=== PATIENT | male | born 1935 | race Caucasian/White ===

== ENCOUNTER 2017-12-02 14:52 | Inpatient (IN) | payer MEDICARE, BC ==
[2017-12-02] MEDS ORDERED: Sodium Chloride 0.9% 500 ML IV ONE (15:37)
[2017-12-02] MEDS: Sodium Chloride 0.9% 10 ML Syringe FLUSH PRN (15:49)
--- NOTE | 2017-12-02 16:09 | EDM.PDOC ---
ED HPI GENERAL MEDICAL PROBLEM - General Chief Complaint: Respiratory Problem Stated Complaint: SOB Time Seen by Provider: 12/02/17 15:04 Source of Information: Reports: Patient, Family, RN Notes Reviewed - History of Present Illness INITIAL COMMENTS - FREE TEXT/NARRATIVE: 82-year-old gentleman first became ill with abdominal discomfort, vomiting and diarrhea 2 or 3 days ago. Especially quite ill 2 days ago with repetitive vomiting and diarrhea. He did start to get somewhat better and felt "a lot better this past morning. States he was able to eat cereal without difficulty. Then around noon today, about 4 hours ago he started having shaking chills, increasing cough, nasal and sinus congestion, nasal rhinitis, scratchy throat and "feels sick". Feels like he is weak with no energy to stand or walk. - Related Data Allergies Allergy/AdvReac Type Severity Reaction Status Date / Time amoxicillin [From Augmentin] Allergy Stomach Verified 12/02/17 15:08 Upset cefuroxime Allergy Stomach Verified 12/02/17 15:08 Upset clavulanic acid Allergy Stomach Verified 12/02/17 15:08 [From Augmentin] Upset hydrochlorothiazide Allergy Stomach Verified 12/02/17 15:08 [From Hyzaar] Upset losartan Allergy Stomach Verified 12/02/17 15:08 Upset metronidazole Allergy Stomach Verified 12/02/17 15:08 Upset morphine Allergy Stomach Verified 12/02/17 15:08 Upset tiotropium Allergy Stomach Verified 12/02/17 15:08 [From Spiriva with Upset HandiHaler] tramadol Allergy Stomach Verified 12/02/17 15:08 Upset Home Meds: Home Meds Albuterol [Proair HFA] 1 puff IH Q4H PRN 12/02/17 [History] Aspirin [Halfprin] 162 mg PO DAILY 12/02/17 [History] Budesonide [Pulmicort] 0.5 mg IH DAILY 12/02/17 [History] Diltiazem HCl [Taztia Xt] 360 mg PO DAILY 12/02/17 [History] Hydrochlorothiazide 25 mg PO DAILY 12/02/17 [History] Ipratropium [Atrovent HFA Inh] 1 puff INH Q8H 12/02/17 [History] LORazepam 0.5 mg PO TID PRN 12/02/17 [History] Lisinopril 20 mg PO DAILY 12/02/17 [History] Metoprolol Succinate 50 mg PO DAILY 12/02/17 [History] Multivitamin [Multivitamins] 1 each PO DAILY 12/02/17 [History] Prednisone [IJD: Prednisone] 5 mg PO ASDIRECTED 12/02/17 [History] Tamsulosin [Tamsulosin 24 Hr] 0.4 mg PO DAILY 12/02/17 [History] Past Medical History Cardiovascular History: Reports: Hypertension, PVD Respiratory History: Reports: COPD, Pneumonia, Recurrent 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, Other (See Below) Other Oncologic History: lip - Past Surgical History HEENT Surgical History: Reports: Other (See Below) Other HEENT Surgeries/Procedures: sinuses removed Cardiovascular Surgical History: Reports: None, Other (See Below) Other Cardiovascular Surgeries/Procedures: abdominal anuerysm stents GI Surgical History: Reports: Appendectomy, Cholecystectomy, Colonoscopy, Hernia , Abdominal Oncologic Surgical History: Reports: Other (See Below) Other Oncologic Surgeries/Procedures: left lung tumor removal ED ROS GENERAL - Review of Systems Review Of Systems: See Below Constitutional: Reports: Fever (Possible), Chills HEENT: Reports: Rhinitis, Throat Pain Respiratory: Reports: Shortness of Breath, Cough, Sputum (Scant) Cardiovascular: Denies: Chest Pain GI/Abdominal: Reports: Diarrhea (2 days ago 2 days ago), Vomiting. Denies: Abdominal Pain Musculoskeletal: Reports: Other (Generalized achiness) Skin: Denies: Rash Neurological: Reports: Dizziness, Weakness. Denies: Headache ED EXAM, GENERAL - Physical Exam Exam: See Below General Appearance: Alert, Moderate Distress Eye Exam: Bilateral Eye: PERRL Nose: Clear Rhinorrhea Throat/Mouth: Normal Inspection, Normal Oropharynx Head: No: Facial Swelling Neck: Supple, Full Range of Motion, Other (No JVD) Respiratory/Chest: Respiratory Distress. No: Rales, Rhonchi (Moderate tachypnea , respiratory rate 25), Wheezing Cardiovascular: Regular Rate, Rhythm GI/Abdominal: Soft, Non-Tender Back Exam: No: CVA Tenderness (L), CVA Tenderness (R) Extremities: Normal Inspection, Normal Range of Motion. No: Pedal Edema, Leg Pain, Increased Warmth, Redness Neurological: Alert, Oriented, No Motor/Sensory Deficits Skin Exam: Warm, Dry, Normal Color Course - Vital Signs Last Recorded V/S: Last Vital Signs Temp 101.1 F H 12/02/17 16:04 Pulse 96 12/02/17 15:01 Resp 25 H 12/02/17 15:01 BP 186/98 H 12/02/17 15:01 Pulse Ox 93 L 12/02/17 15:01 - Orders/Labs/Meds Orders: Active Orders 24 hr Category Date Time Status EKG 12 Lead [EKG Documentation Completion] [RC] STAT Care 12/02/17 15:36 Active Oxygen Therapy [RC] ASDIRECTED Care 12/02/17 15:36 Active Peripheral IV Care [RC] . DIRECTED Care 12/02/17 15:37 Active Chest 1V Frontal [CR] Stat Exams 12/02/17 15:36 Taken CULTURE BLOOD [BC] Stat Lab 12/02/17 15:57 Received Levofloxacin/Dextrose 5%-Water [Levaquin in D5W 750 MG/ Med 12/02/17 17:03 Active 150 ML] 750 mg Premix Bag 1 bag IV ONETIME Sodium Chloride 0.9% [Saline Flush] Med 12/02/17 15:35 Active 10 ml FLUSH ASDIRECTED PRN Peripheral IV Insertion Adult [OM.PC] Stat Oth 12/02/17 15:36 Ordered Medication Orders Levofloxacin/Dextrose 750 mg/ (Premix) 150 mls @ 100 mls/hr IV ONETIME ONE Stop: 12/02/17 18:32 Sodium Chloride (Saline Flush) 10 ml FLUSH ASDIRECTED PRN PRN Reason: Keep Vein Open Last Admin: 12/02/17 15:49 Dose: 10 ml Labs: Laboratory Tests 12/02/17 12/02/17 12/02/17 Range/Units 15:10 15:10 15:10 WBC 10.75 H (4.23-9.07) K/mm3 RBC 5.23 (4.63-6.08) M/mm3 Hgb 15.7 (13.7-17.5) gm/L Hct 46.4 (40.1-51.0) % MCV 88.7 (79.0-92.2) fl MCH 30.0 (25.7-32.2) pg MCHC 33.8 (32.2-35.5) g/dl RDW Std Deviation 42.9 (35.1-43.9) fL Plt Count 226 (163-337) K/mm3 MPV 11.2 (9.4-12.3) fl Neutrophils % (Manual) 82 H (40-60) % Band Neutrophils % 1 (0-10) % Lymphocytes % (Manual) 16 L (20-40) % Atypical Lymphs % 0 % Monocytes % (Manual) 1 L (2-10) % Eosinophils % (Manual) 0 L (0.8-7.0) % Basophils % (Manual) 0 L (0.2-1.2) Platelet Estimate Adequate RBC Morph Comment Normal D-Dimer, Quantitative 1.64 H (0.19-0.59) mg/L Sodium 139 (136-145) mEq/L Potassium 3.4 L (3.5-5.1) mEq/L Chloride 99 (98-107) mEq/L Carbon Dioxide 30 (21-32) mEq/L Anion Gap 13.4 (5-15) BUN 19 H (7-18) mg/dL Creatinine 1.3 (0.7-1.3) mg/dL Est Cr Clr Drug Dosing 41.43 mL/min Estimated GFR (MDRD) 53 (>60) mL/min BUN/Creatinine Ratio 14.6 (14-18) Glucose 196 H (83-115) mg/dL Lactic Acid (0.4-2.0) mmol/L Calcium 8.8 (8.5-10.1) mg/dL Total Bilirubin 1.3 H (0.2-1.0) mg/dL AST 30 (15-37) U/L ALT 47 (16-63) U/L Alkaline Phosphatase 51 (46-116) U/L C-Reactive Protein 2.5 H* (<1.0) mg/dL Total Protein 7.6 (6.4-8.2) g/dl Albumin 3.8 (3.4-5.0) g/dl Globulin 3.8 gm/dL Albumin/Globulin Ratio 1.0 (1-2) 12/02/17 Range/Units 15:57 WBC (4.23-9.07) K/mm3 RBC (4.63-6.08) M/mm3 Hgb (13.7-17.5) gm/L Hct (40.1-51.0) % MCV (79.0-92.2) fl MCH (25.7-32.2) pg MCHC (32.2-35.5) g/dl RDW Std Deviation (35.1-43.9) fL Plt Count (163-337) K/mm3 MPV (9.4-12.3) fl Neutrophils % (Manual) (40-60) % Band Neutrophils % (0-10) % Lymphocytes % (Manual) (20-40) % Atypical Lymphs % % Monocytes % (Manual) (2-10) % Eosinophils % (Manual) (0.8-7.0) % Basophils % (Manual) (0.2-1.2) Platelet Estimate RBC Morph Comment D-Dimer, Quantitative (0.19-0.59) mg/L Sodium (136-145) mEq/L Potassium (3.5-5.1) mEq/L Chloride (98-107) mEq/L Carbon Dioxide (21-32) mEq/L Anion Gap (5-15) BUN (7-18) mg/dL Creatinine (0.7-1.3) mg/dL Est Cr Clr Drug Dosing mL/min Estimated GFR (MDRD) (>60) mL/min BUN/Creatinine Ratio (14-18) Glucose (83-115) mg/dL Lactic Acid 1.3 (0.4-2.0) mmol/L Calcium (8.5-10.1) mg/dL Total Bilirubin (0.2-1.0) mg/dL AST (15-37) U/L ALT (16-63) U/L Alkaline Phosphatase (46-116) U/L C-Reactive Protein (<1.0) mg/dL Total Protein (6.4-8.2) g/dl Albumin (3.4-5.0) g/dl Globulin gm/dL Albumin/Globulin Ratio (1-2) Meds: Medications Generic Name Dose Route Start Last Admin Trade Name Freq PRN Reason Stop Dose Admin Levofloxacin/Dextrose 750 mg/ 150 mls @ 100 mls/hr 12/02/17 17:03 Premix IV 12/02/17 18:32 ONETIME ONE Sodium Chloride 10 ml 12/02/17 15:35 12/02/17 15:49 Saline Flush FLUSH 10 ml ASDIRECTED PRN Administration Keep Vein Open Discontinued Medications Generic Name Dose Route Start Last Admin Trade Name Zack PRN Reason Stop Dose Admin Acetaminophen 975 mg 12/02/17 17:04 Tylenol PO 12/02/17 17:05 NOW ONE Famotidine 20 mg 12/02/17 17:02 Pepcid IVPUSH 12/02/17 17:03 ONETIME ONE Sodium Chloride 500 mls @ 999 mls/hr 12/02/17 15:37 12/02/17 15:49 Normal Saline IV 12/02/17 16:07 999 mls/hr .BOLUS ONE Administration Departure - Departure Time of Disposition: 17:09 Disposition: Admitted As Inpatient 65 Condition: Serious Clinical Impression: Pneumonia Qualifiers: Pneumonia type: due to unspecified organism Laterality: left Lung location: lower lobe of lung Qualified Code(s): J18.1 - Lobar pneumonia, unspecified organism - Discharge Information Referrals: Ryley Fernandes PA-C [Primary Care Provider] - Forms: ED Department Discharge ED Communication - Discussed Case With (1) Discussed Case With (1): Admitting Provider (Dr Emanuel, decision to admit at about 17:10.) - My Orders Last 24 Hours: My Active Orders 12/02/17 15:35 Sodium Chloride 0.9% [Saline Flush] 10 ml FLUSH ASDIRECTED PRN 12/02/17 15:36 EKG 12 Lead [EKG Documentation Completion] [RC] STAT Oxygen Therapy [RC] ASDIRECTED Chest 1V Frontal [CR] Stat Peripheral IV Insertion Adult [OM.PC] Stat 12/02/17 15:37 Peripheral IV Care [RC] . DIRECTED 12/02/17 15:57 CULTURE BLOOD [BC] Stat 12/02/17 17:03 Levofloxacin/Dextrose 5%-Water [Levaquin in D5W 750 MG/150 ML] 750 mg Premix Bag 1 bag IV ONETIME - Assessment/Plan Last 24 Hours: My Active Orders 12/02/17 15:35 Sodium Chloride 0.9% [Saline Flush] 10 ml FLUSH ASDIRECTED PRN 12/02/17 15:36 EKG 12 Lead [EKG Documentation Completion] [RC] STAT Oxygen Therapy [RC] ASDIRECTED Chest 1V Frontal [CR] Stat Peripheral IV Insertion Adult [OM.PC] Stat 12/02/17 15:37 Peripheral IV Care [RC] . DIRECTED 12/02/17 15:57 CULTURE BLOOD [BC] Stat 12/02/17 17:03 Levofloxacin/Dextrose 5%-Water [Levaquin in D5W 750 MG/150 ML] 750 mg Premix Bag 1 bag IV ONETIME
[2017-12-02] MEDS ORDERED: Famotidine 20 MG/2 ML SDV IVPUSH ONE (17:02)
[2017-12-02] MEDS ORDERED: Levofloxacin/Dextrose 5%-Water 750 MG in Premix Bag 1 BAG IV ONE (17:03)
[2017-12-02] MEDS ORDERED: Acetaminophen 325 MG Tab PO ONE (17:04)
[2017-12-02] MEDS ORDERED: Sodium Chloride 0.9% 1,000 ML IV ONE (17:16)
[2017-12-02] MEDS ORDERED: LORazepam 0.5 MG Tab PO PRN (18:48)
--- NOTE | 2017-12-02 18:48 | PCM.HP ---
H&P History of Present Illness - General Date of Service: 12/02/17 Admit Problem/Dx: Admission Diagnosis/Problem Admission Diagnosis/Problem Pneumonia Source of Information: Patient, Family, Provider History Limitations: Reports: No Limitations - History of Present Illness Initial Comments - Free Text/Narative: 82 year old male with history of emphysema presented with a complaint of SOB. This occurred 24-48 hours [employer], prior to that he had malaise, generalized weakness and a decreased appetite. He has had a cough for 1 day associated with fever and chills. The patient's family were concerned that he may have had the flu, the screen was negative in the ED. he also mentioned a fever with shaking chills several hours prior to presenting to the ED. A CXR suggest a LLL infiltrate. He will be admitted to obs with telemetry, PNA is strongly suspected. An Influenza screen will be repeated. Onset of Symptoms: Reports: Gradual Symptom Onset Date: 11/29/17 Duration of Symptoms: Reports: Day(s):, Getting Worse Location: Reports: Chest, Abdomen, Generalized Severity: Moderate Improves with: Reports: Medication Worsens with: Reports: None Context: Reports: Sick Contact Associated Symptoms: Reports: Chest Pain, Cough, Fever/Chills, Loss of Appetite , Malaise, Nausea/Vomiting, Weakness - Related Data Allergies/Adverse Reactions: Allergies Allergy/AdvReac Type Severity Reaction Status Date / Time amoxicillin [From Augmentin] AdvReac Stomach Verified 12/03/17 09:50 Upset cefuroxime AdvReac Stomach Verified 12/03/17 09:50 Upset clavulanic acid AdvReac Stomach Verified 12/03/17 09:50 [From Augmentin] Upset losartan AdvReac Stomach Verified 12/03/17 09:50 Upset metronidazole AdvReac Stomach Verified 12/03/17 09:50 Upset morphine AdvReac Stomach Verified 12/03/17 09:50 Upset tiotropium AdvReac Stomach Verified 12/03/17 09:50 [From Spiriva with Upset HandiHaler] tramadol AdvReac Stomach Verified 12/03/17 09:50 Upset Home Medications: Home Meds Albuterol [Proair HFA] 1 puff IH Q4H PRN 12/02/17 [History] Aspirin [Halfprin] 162 mg PO DAILY 12/02/17 [History] Budesonide [Pulmicort] 0.5 mg IH DAILY 12/02/17 [History] Diltiazem HCl [Taztia Xt] 360 mg PO DAILY 12/02/17 [History] Hydrochlorothiazide 25 mg PO DAILY 12/02/17 [History] Ipratropium [Atrovent HFA Inh] 1 puff INH Q8H 12/02/17 [History] LORazepam 0.5 mg PO TID PRN 12/02/17 [History] Lisinopril 20 mg PO DAILY 12/02/17 [History] Metoprolol Succinate 50 mg PO DAILY 12/02/17 [History] Multivitamin [Multivitamins] 1 each PO DAILY 12/02/17 [History] Prednisone [IJD: Prednisone] 5 mg PO ASDIRECTED 12/02/17 [History] Tamsulosin [Tamsulosin 24 Hr] 0.4 mg PO DAILY 12/02/17 [History] Past Medical History Cardiovascular History: Reports: Hypertension, PVD Respiratory History: Reports: COPD, Pneumonia, Recurrent 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, Other (See Below) Other Oncologic History: lip - Past Surgical History HEENT Surgical History: Reports: Other (See Below) Other HEENT Surgeries/Procedures: sinuses removed Cardiovascular Surgical History: Reports: None, Other (See Below) Other Cardiovascular Surgeries/Procedures: abdominal anuerysm stents GI Surgical History: Reports: Appendectomy, Cholecystectomy, Colonoscopy, Hernia , Abdominal Oncologic Surgical History: Reports: Other (See Below) Other Oncologic Surgeries/Procedures: left lung tumor removal Social & Family History - Tobacco Use Smoking Status *Q: Former Smoker Used Tobacco, but Quit: Yes Month Tobacco Last Used: unknown - Recreational Drug Use Recreational Drug Use: No H&P Review of Systems - Review of Systems: Review Of Systems: See Below General: Reports: Fever, Chills, Malaise, Weakness, Fatigue, Decreased Appetite HEENT: Reports: No Symptoms Pulmonary: Reports: Shortness of Breath Cardiovascular: Reports: No Symptoms Gastrointestinal: Reports: Diarrhea, Decreased Appetite, Nausea, Vomiting Genitourinary: Reports: No Symptoms Musculoskeletal: Reports: No Symptoms Skin: Reports: No Symptoms Psychiatric: Reports: No Symptoms Neurological: Reports: Dizziness Hematologic/Lymphatic: Reports: No Symptoms Immunologic: Reports: No Symptoms Exam - Exam Exam: See Below - Vital Signs Vital Signs: Last Vital Signs Temp 38.4 C H 12/02/17 17:13 Pulse 96 12/02/17 15:01 Resp 25 H 12/02/17 15:01 BP 186/98 H 12/02/17 15:01 Pulse Ox 93 L 12/02/17 15:01 Weight: 68.039 kg - Exam Quality Assessment: Supplemental Oxygen General: Alert, Oriented, Cooperative HEENT: Nares Patent, Normal Nasal Septum, Pupils Equal, Pupils Reactive, PERRLA Neck: Supple, Trachea Midline Lungs: Normal Respiratory Effort Cardiovascular: Regular Rate, Regular Rhythm GI/Abdominal Exam: Normal Bowel Sounds, Soft, Non-Tender, No Organomegaly, No Distention (Male) Exam: Deferred Rectal (Males) Exam: Deferred Back Exam: Normal Inspection Extremities: Normal Inspection, Non-Tender Skin: Warm Neurological: Cranial Nerves Intact Neuro Extensive - Mental Status: Alert, Oriented x3 Neuro Extensive - Motor, Sensory, Reflexes: CN II-XII Intact Psychiatric: Alert, Normal Affect, Normal Mood - Patient Data Result Diagrams: 12/03/17 06:56 12/03/17 06:56 *Q Meaningful Use (ADM) - VTE *Q VTE Criteria *Q: - Stroke *Q Stroke Criteria *Q: - AMI *Q AMI Criteria *Q: - Problem List (1) PVD (peripheral vascular disease) SNOMED Code(s): 084723841 ICD Code: I73.9 - PERIPHERAL VASCULAR DISEASE, UNSPECIFIED Status: Acute Current Visit: Yes (2) COPD (chronic obstructive pulmonary disease) SNOMED Code(s): 91988917 ICD Code: J44.9 - CHRONIC OBSTRUCTIVE PULMONARY DISEASE, UNSPECIFIED Status : Acute Current Visit: Yes (3) GERD (gastroesophageal reflux disease) SNOMED Code(s): 669323264 ICD Code: K21.9 - GASTRO-ESOPHAGEAL REFLUX DISEASE WITHOUT ESOPHAGITIS Status: Acute Current Visit: Yes (4) Pneumonia SNOMED Code(s): 150230157 ICD Code: J18.9 - PNEUMONIA, UNSPECIFIED ORGANISM Status: Acute Current Visit: Yes Qualifiers: Pneumonia type: due to unspecified organism Laterality: left Lung location: lower lobe of lung Qualified Code(s): J18.1 - Lobar pneumonia, unspecified organism (5) BPH (benign prostatic hyperplasia) SNOMED Code(s): 779914101 ICD Code: N40.0 - BENIGN PROSTATIC HYPERPLASIA WITHOUT LOWER URINRY TRACT SYMP Status: Acute Current Visit: Yes (6) History of AAA (abdominal aortic aneurysm) repair SNOMED Code(s): 290454431 ICD Code: Z98.890 - OTHER SPECIFIED POSTPROCEDURAL STATES Status: Acute Current Visit: Yes (7) Diarrhea SNOMED Code(s): 11689703 ICD Code: R19.7 - DIARRHEA, UNSPECIFIED Status: Acute Current Visit: Yes Problem List Initiated/Reviewed/Updated: Yes Orders Last 24hrs: Medication Orders Sodium Chloride (Normal Saline) 1,000 mls @ 50 mls/hr IV ONETIME ONE Stop: 12/03/17 13:15 Last Admin: 12/02/17 17:16 Dose: 50 mls/hr Sodium Chloride (Saline Flush) 10 ml FLUSH ASDIRECTED PRN PRN Reason: Keep Vein Open Last Admin: 12/02/17 15:49 Dose: 10 ml Assessment/Plan Comment:: Impression: Gastroenteritis--resolved Query CAP, LLL infiltrate History of COPD/emphysema Query Influenza, will run PCR Chronic BPH HTN Query DM HLD PVD with AAA endovascular repair Plan: IVF IV steroids Antiemetic as needed/scheduled Clear liquids advanced as tolerated. Empiric ATB, levoquin Infectious work up: resp/stool Daily labs Home meds Consult PT/OT/CM (re: HH) DVT/GI prophylaxis ]
[2017-12-02] MEDS ORDERED: Ondansetron 4 MG/2 ML SDV IVPUSH PRN (18:55)
[2017-12-02] MEDS ORDERED: predniSONE 10 MG Tab PO SCH (19:00)
[2017-12-02] MEDS ORDERED: Dextrose 5%-0.9% NaCl 1,000 ML IV SCH ×2 (19:00→21:30)
[2017-12-02] MEDS ORDERED: Acetaminophen 325 MG Tab PO PRN (19:09)
[2017-12-02] MEDS ORDERED: Albuterol 0.083% 2.5 MG/3 ML Neb Soln NEB PRN (19:12)
[2017-12-02] MEDS ORDERED: Metoprolol Tartrate 5 MG/5 ML SDV IVPUSH PRN (19:40)
[2017-12-02] MEDS ORDERED: Temazepam 7.5 MG Cap PO PRN (19:41)
[2017-12-02] MEDS ORDERED: Loperamide 2 MG Cap PO PRN (19:41)
[2017-12-02] MEDS ORDERED: Famotidine 20 MG/2 ML SDV IVPUSH SCH (21:00)
[2017-12-02] MEDS: Promethazine 12.5 MG in Sodium Chloride 0.9% 50 ML IV SCH (21:23)
[2017-12-02] MEDS: methylPREDNISolone Sodium Succinate 40 MG/1 ML SDV IVPUSH SCH (21:23)
[2017-12-02] MEDS ORDERED: Budesonide 0.5 MG/2 ML Neb **OWN MED INH SCH (22:00)
[2017-12-02] MEDS ORDERED: BROVANA 15 MCG/2 ML INH SCH (22:08)
[2017-12-03] MEDS: Dextrose 5%-0.9% NaCl 1,000 ML IV SCH ×2 (00:09→06:22)
[2017-12-03] MEDS: methylPREDNISolone Sodium Succinate 40 MG/1 ML SDV IVPUSH SCH ×2 (02:17→11:26)
[2017-12-03] MEDS: Promethazine 12.5 MG in Sodium Chloride 0.9% 50 ML IV SCH ×2 (02:17→06:16)
[2017-12-03] MEDS: BROVANA 15 MCG/2 ML NEB SCH ×2 (06:37→21:31)
[2017-12-03] MEDS: Budesonide 0.5 MG/2 ML Neb Susp NEB SCH ×2 (06:37→21:31)
[2017-12-03] MEDS: Famotidine 20 MG/2 ML SDV IVPUSH SCH (08:34)
[2017-12-03] MEDS: Enoxaparin 40 MG/0.4 ML Syringe SUBCUT SCH (08:34)
[2017-12-03] MEDS: Aspirin 81 MG Tab.EC PO SCH (08:44)
[2017-12-03] MEDS: Tamsulosin 0.4 MG Cap.ER PO SCH (08:44)
[2017-12-03] MEDS ORDERED: DILTIAZEM 360 MG PO SCH (09:00)
--- NOTE | 2017-12-03 09:50 | PCM.PN ---
- General Info Date of Service: 12/03/17 Functional Status: Reports: Tolerating Diet, Ambulating, Urinating - Review of Systems General: Reports: Weakness, Malaise HEENT: Reports: No Symptoms Pulmonary: Reports: Shortness of Breath, Pleuritic Chest Pain Cardiovascular: Reports: No Symptoms Gastrointestinal: Reports: No Symptoms Genitourinary: Reports: No Symptoms Musculoskeletal: Reports: No Symptoms Skin: Reports: No Symptoms Neurological: Reports: No Symptoms Psychiatric: Reports: No Symptoms - Patient Data Vitals - Most Recent: Last Vital Signs Temp 36.9 C 12/03/17 08:13 Pulse 51 L 12/03/17 08:13 Resp 24 H 12/03/17 08:13 BP 116/68 12/03/17 08:13 Pulse Ox 98 12/03/17 08:13 Weight - Most Recent: 68.583 kg Lab Results Last 24 Hours: Laboratory Results - last 24 hr 12/03/17 12/03/17 12/03/17 Range/Units 06:56 06:56 06:56 WBC 5.97 (4.23-9.07) K/mm3 RBC 4.24 L (4.63-6.08) M/mm3 Hgb 12.7 L (13.7-17.5) gm/L Hct 37.6 L (40.1-51.0) % MCV 88.7 (79.0-92.2) fl MCH 30.0 (25.7-32.2) pg MCHC 33.8 (32.2-35.5) g/dl RDW Std Deviation 42.2 (35.1-43.9) fL Plt Count 182 (163-337) K/mm3 MPV 10.7 (9.4-12.3) fl Neut % (Auto) 89.5 H (34.0-67.9) % Lymph % (Auto) 7.4 L (21.8-53.1) % [place] % (Auto) 2.8 L (5.3-12.2) % Eos % (Auto) 0 L (0.8-7.0) Baso % (Auto) 0.0 L (0.1-1.2) % Neut # (Auto) 5.34 (1.78-5.38) K/mm3 Lymph # (Auto) 0.44 L (1.32-3.57) K/mm3 [place] # (Auto) 0.17 L (0.30-0.82) K/mm3 Eos # (Auto) 0.00 L (0.04-0.54) K/mm3 Baso # (Auto) 0.00 L (0.01-0.08) K/mm3 Manual Slide Review Abnormal smear Sodium 135 L (136-145) mEq/L Potassium 3.8 (3.5-5.1) mEq/L Chloride 101 (98-107) mEq/L Carbon Dioxide 25 (21-32) mEq/L Anion Gap 12.8 (5-15) BUN 24 H (7-18) mg/dL Creatinine 1.4 H (0.7-1.3) mg/dL Est Cr Clr Drug Dosing 38.78 mL/min Estimated GFR (MDRD) 48 (>60) mL/min BUN/Creatinine Ratio 17.1 (14-18) Glucose 419 H (83-115) mg/dL Lactic Acid 2.3 H (0.4-2.0) mmol/L Calcium 7.3 L (8.5-10.1) mg/dL C-Reactive Protein 6.0 H* (<1.0) mg/dL Mycoplasma pneumon IgM Positive H (NEGATIVE) Slava Results Last 24 Hours: Microbiology 12/02/17 21:28 Group A Streptococcus Rapid Screen - Final Throat NEGATIVE STREP A SCREEN Med Orders - Current: Current Medications Acetaminophen (Tylenol) 650 mg PO Q6H PRN PRN Reason: Pain/Fever Albuterol (Proventil Neb Soln) 2.5 mg NEB Q4HRRT PRN PRN Reason: Shortness of Breath Aspirin (Halfprin) 162 mg PO DAILY [facility] Last Admin: 12/03/17 08:44 Dose: 162 mg Budesonide (Pulmicort) 0.5 mg NEB BIDRT [facility] Last Admin: 12/03/17 06:37 Dose: 0.5 mg Enoxaparin Sodium (Lovenox) 40 mg SUBCUT DAILY [facility] Last Admin: 12/03/17 08:34 Dose: 40 mg Famotidine (Pepcid) 20 mg IVPUSH DAILY [facility] Last Admin: 12/03/17 08:34 Dose: 20 mg Hydrochlorothiazide (Hydrochlorothiazide) 25 mg PO DAILY [facility] Promethazine HCl 12.5 mg/ (Sodium Chloride) 50.5 mls @ 100 mls/hr IV Q6H [facility] Last Admin: 12/03/17 06:16 Dose: 100 mls/hr Dextrose/Sodium Chloride (Dextrose 5%-Normal Saline) 1,000 mls @ 100 mls/hr IV ASDIRECTED [facility] Last Admin: 12/03/17 06:22 Dose: 100 mls/hr Lisinopril (Prinivil) 20 mg PO DAILY [facility] Loperamide HCl (Imodium) 2 mg PO Q6H PRN PRN Reason: Diarrhea Lorazepam (Ativan) 0.5 mg PO TID PRN PRN Reason: Anxiety Methylprednisolone Sodium Succinate (Solu-Medrol) 80 mg IVPUSH Q8H [facility] Last Admin: 12/03/17 02:17 Dose: 80 mg Metoprolol Succinate (Toprol Xl) 50 mg PO DAILY [facility] Metoprolol Tartrate (Lopressor) 5 mg IVPUSH Q6H PRN PRN Reason: heart rate >120 Ondansetron HCl (Zofran) 4 mg IVPUSH Q8H PRN PRN Reason: Nausea/Vomiting Diltiazem Er 360mg (Cap Own Med) 0 each PO DAILY [facility] Brovana 15mcg/2ml (Neb Own Med) 1 each NEB BIDRT [facility] Last Admin: 12/03/17 06:37 Dose: 1 each Sodium Chloride (Saline Flush) 10 ml FLUSH ASDIRECTED PRN PRN Reason: Keep Vein Open Last Admin: 12/02/17 15:49 Dose: 10 ml Tamsulosin HCl (Flomax) 0.4 mg PO DAILY [facility] Last Admin: 12/03/17 08:44 Dose: 0.4 mg Temazepam (Restoril) 7.5 mg PO BEDTIME PRN PRN Reason: Insomnia Discontinued Medications Acetaminophen (Tylenol) 975 mg PO NOW ONE Stop: 12/02/17 17:05 Last Admin: 12/02/17 17:13 Dose: 975 mg Budesonide (Pulmicort) 0.5 mg INH BIDRT [facility] Last Admin: 12/02/17 23:45 Dose: Not Given Budesonide (Pulmicort) 0.5 mg NEB BIDRT [facility] Last Admin: 12/02/17 22:36 Dose: 0.5 mg Famotidine (Pepcid) 20 mg IVPUSH ONETIME ONE Stop: 12/02/17 17:03 Last Admin: 12/02/17 17:13 Dose: 20 mg Famotidine (Pepcid) 20 mg IVPUSH BID [facility] Sodium Chloride (Normal Saline) 500 mls @ 999 mls/hr IV .BOLUS ONE Stop: 12/02/17 16:07 Last Admin: 12/02/17 15:49 Dose: 999 mls/hr Levofloxacin/Dextrose 750 mg/ (Premix) 150 mls @ 100 mls/hr IV ONETIME ONE Stop: 12/02/17 18:32 Last Admin: 12/02/17 17:13 Dose: 100 mls/hr Sodium Chloride (Normal Saline) 1,000 mls @ 50 mls/hr IV ONETIME ONE Stop: 12/03/17 13:15 Last Admin: 12/02/17 17:16 Dose: 50 mls/hr Dextrose/Sodium Chloride (Dextrose 5%-Normal Saline) 1,000 mls @ 100 mls/hr IV ASDIRECTED [facility] Dextrose/Sodium Chloride (Dextrose 5%-Normal Saline) 1,000 mls @ 100 mls/hr IV ASDIRECTED [facility] Brovana Neb 15mcg/ (2ml Own Med) 0 each INH BIDRT [facility] Last Admin: 12/02/17 22:35 Dose: 1 each Prednisone (Prednisone) 5 mg PO ASDIRECTED [facility] - Exam Quality Assessment: Supplemental Oxygen, DVT Prophylaxis General: Alert, Oriented, Cooperative, No Acute Distress HEENT: Pupils Equal, Pupils Reactive, EOMI Neck: Trachea Midline, No JVD Lungs: Normal Respiratory Effort, Decreased Breath Sounds, Rhonchi Cardiovascular: Regular Rate GI/Abdominal Exam: Normal Bowel Sounds, Soft, Non-Tender, No Organomegaly, No Distention (Male) Exam: Deferred Back Exam: Normal Inspection Extremities: Normal Inspection Skin: Warm Neurological: No New Focal Deficit, Normal Gait, Normal Speech Psy/Mental Status: Alert, Normal Affect, Normal Mood - Problem List Review Problem List Initiated/Reviewed/Updated: Yes - My Orders Last 24 Hours: My Active Orders 12/02/17 18:48 LORazepam [Ativan] 0.5 mg PO TID PRN 12/02/17 18:51 Antiembolic Devices [RC] PER UNIT ROUTINE ROBERT Hose [Antiembolic Hose] [OM.PC] Routine 12/02/17 18:55 Ondansetron [Zofran] 4 mg IVPUSH Q8H PRN 12/02/17 19:00 Promethazine [Phenergan] 12.5 mg Sodium Chloride 0.9% [Normal Saline] 50 ml IV Q6H methylPREDNISolone Sod Succ [Solu-MEDROL] 80 mg IVPUSH Q8H 12/02/17 19:09 Acetaminophen [Tylenol] 650 mg PO Q6H PRN 12/02/17 19:12 RT Aerosol Therapy [RC] ASDIRECTED Albuterol [Proventil Neb Soln] 2.5 mg NEB Q4HRRT PRN 12/02/17 19:14 Isolation [COMM] Routine 12/02/17 19:39 WBC, STOOL [OP] Routine 12/02/17 19:40 Metoprolol Tartrate [Lopressor] 5 mg IVPUSH Q6H PRN 12/02/17 19:41 Activity as Tolerated [RC] .Routine Loperamide [Imodium] 2 mg PO Q6H PRN Temazepam [Restoril] 7.5 mg PO BEDTIME PRN 12/02/17 21:00 Dextrose 5%-0.9% NaCl [Dextrose 5%-Normal Saline] 1,000 ml IV ASDIRECTED 12/02/17 21:28 CULTURE STREP A CONFIRMATION [RM] Routine INFLUENZA A,B, H1N1 BY PCR [MREF] Routine STREP SCRN A RAPID W CULT CONF [RM] Routine 12/02/17 22:05 RT Aerosol Therapy [RC] ASDIRECTED 12/02/17 22:29 Code Status [Resuscitation Status] Routine 12/03/17 02:25 STREP PNEUMONIAE ANTIGEN [MREF] Routine 12/03/17 06:00 Budesonide [Pulmicort] 0.5 mg NEB BIDRT Patient's Own Medication [Ptom] 1 each NEB BIDRT 12/03/17 07:48 Blood Glucose Check, Bedside [RC] ONETIME 12/03/17 09:00 Aspirin [Halfprin] 162 mg PO DAILY Enoxaparin [Lovenox] 40 mg SUBCUT DAILY Famotidine [Pepcid] 20 mg IVPUSH DAILY Metoprolol Succinate [Toprol XL] 50 mg PO DAILY Patient's Own Medication [Ptom] 0 each PO DAILY Tamsulosin [Flomax] 0.4 mg PO DAILY 12/03/17 09:45 Hydrochlorothiazide 25 mg PO DAILY Lisinopril [Prinivil] 20 mg PO DAILY 12/03/17 Lunch ADA Diabetic [[place] Diet] [DIET] 12/04/17 05:00 BMP [BASIC METABOLIC PANEL,BMP] [CHEM] DAILY CBC WITH AUTO DIFF [HEME] DAILY CRP [C-REACTIVE PROTEIN] [CHEM] DAILY LACTIC ACID [CHEM] DAILY 12/04/17 09:00 CXR [Chest 2V] [CR] Routine 12/05/17 05:00 BMP [BASIC METABOLIC PANEL,BMP] [CHEM] DAILY CBC WITH AUTO DIFF [HEME] DAILY CRP [C-REACTIVE PROTEIN] [CHEM] DAILY LACTIC ACID [CHEM] DAILY 12/06/17 05:00 BMP [BASIC METABOLIC PANEL,BMP] [CHEM] DAILY CBC WITH AUTO DIFF [HEME] DAILY CRP [C-REACTIVE PROTEIN] [CHEM] DAILY LACTIC ACID [CHEM] DAILY - Plan Plan:: Impression: Gastroenteritis--resolved Query CAP, LLL infiltrate MYCOPLASMA +, continue droplet isolation History of COPD/emphysema Query Influenza, will run PCR Chronic BPH HTN Query DM HLD PVD with AAA endovascular repair Plan: IVF IV steroids as needed Antiemetic as needed/scheduled Clear liquids advanced as tolerated. IV Levoquin/Nebs Infectious work up: resp/stool Daily labs Home meds Consult PT/OT/CM (re: ) DVT/GI prophylaxis ]
[2017-12-03] MEDS: Metoprolol Succinate 50 MG Tab.ER PO SCH (09:51)
[2017-12-03] MEDS ORDERED: Promethazine 12.5 MG in Sodium Chloride 0.9% 50 ML IV PRN (09:59)
[2017-12-03] MEDS: Hydrochlorothiazide 25 MG Tab PO SCH (10:02)
[2017-12-03] MEDS: Lisinopril 20 MG Tab PO SCH (10:02)
[2017-12-03] MEDS: Insulin Aspart 100 Units/ML 3 ML Pen SUBCUT SCH ×3 (10:11→17:21)
[2017-12-03] MEDS: Azithromycin 500 MG in Sodium Chloride 0.9% 250 ML IV SCH (14:08)
--- NOTE | 2017-12-03 17:47 | CR ---
Chest: Portable view of the chest was obtained. Comparison: Prior chest x-ray of 09/22/14. Heart size is normal. Tortuous thoracic aorta is seen. Increased lung markings are identified within the left perihilar region and left base as an interval change from prior exam. Right lung is clear. Lungs are hyperinflated compatible with emphysematous change. Bony structures are grossly intact. Impression: 1. Increased lung markings on the left side as an interval change from previous exam. Uncertain if findings represent appearance of pulmonary fibrosis or whether findings represent infectious bronchitis. 2. Emphysematous change. Diagnostic code #3
[2017-12-03] MEDS: Simethicone 80 MG Tab.Chew PO PRN (17:50)
[2017-12-03] MEDS ORDERED: Budesonide 0.5 MG/2 ML Neb **OWN MED NEB SCH (22:03)
[2017-12-04] MEDS: Budesonide 0.5 MG/2 ML Neb Susp NEB SCH ×2 (06:28→21:09)
[2017-12-04] MEDS: BROVANA 15 MCG/2 ML NEB SCH ×2 (06:28→21:09)
[2017-12-04] MEDS: Insulin Aspart 100 Units/ML 3 ML Pen SUBCUT SCH ×5 (08:09→22:05)
[2017-12-04] MEDS: Enoxaparin 40 MG/0.4 ML Syringe SUBCUT SCH (08:10)
[2017-12-04] MEDS: Famotidine 20 MG/2 ML SDV IVPUSH SCH (08:11)
[2017-12-04] MEDS: Metoprolol Succinate 50 MG Tab.ER PO SCH (08:16)
[2017-12-04] MEDS: Aspirin 81 MG Tab.EC PO SCH (08:17)
[2017-12-04] MEDS: Hydrochlorothiazide 25 MG Tab PO SCH (08:17)
[2017-12-04] MEDS: Lisinopril 20 MG Tab PO SCH (08:19)
[2017-12-04] MEDS: Sodium Chloride 0.9% 10 ML Syringe FLUSH PRN (08:22)
[2017-12-04] MEDS: Tamsulosin 0.4 MG Cap.ER PO SCH (08:30)
[2017-12-04] MEDS: Diltiazem 180 MG Cap.CD PO SCH (08:54)
--- NOTE | 2017-12-04 10:06 | CR ---
Chest: Two-views of the chest were obtained. Comparison: Prior chest x-ray of 12/02/17. Heart size is normal. Tortuous thoracic aorta is seen. Lung markings mildly increased which appear to be stable from previous exam. Old left upper rib fracture is seen. Lungs are hyperinflated compatible with emphysematous change. Minimal degenerative change noted within the spine. Impression: 1. Findings as noted above. No significant change is seen from prior chest x-ray. Diagnostic code #3
[2017-12-04] MEDS: Potassium Chloride 20 MEQ Tab.ER PO SCH ×2 (11:39→22:04)
--- NOTE | 2017-12-04 11:41 | PCM.PN ---
- General Info Date of Service: 12/04/17 Admission Dx/Problem (Free Text): Admission Diagnosis/Problem Admission Diagnosis/Problem Pneumonia Subjective Update: In to see Arnel today. No overnight concerns. He reports he finally got some good sleep last night. He has been complaining of GERD. He has been getting Pepcid while here which should start to work soon. Overall he says he feels good. Functional Status: Reports: Pain Controlled, Tolerating Diet, Ambulating, Urinating. Denies: New Symptoms - Review of Systems General: Reports: Weakness, Fatigue HEENT: Reports: No Symptoms Pulmonary: Reports: Shortness of Breath (improving ) Cardiovascular: Reports: PND. Denies: Chest Pain, Palpitations, Dyspnea on Exertion Gastrointestinal: Reports: No Symptoms. Denies: Abdominal Pain, Constipation, Diarrhea, Nausea, Vomiting Genitourinary: Reports: No Symptoms Musculoskeletal: Reports: No Symptoms Skin: Reports: No Symptoms Neurological: Reports: No Symptoms Psychiatric: Reports: No Symptoms - Patient Data Vitals - Most Recent: Last Vital Signs Temp 98.8 F 12/04/17 08:20 Pulse 90 12/04/17 08:20 Resp 18 12/04/17 08:00 BP 142/64 H 12/04/17 08:19 Pulse Ox 98 12/04/17 08:20 Weight - Most Recent: 154 lb I&O - Last 24 Hours: Intake & Output 12/03/17 12/04/17 12/04/17 22:59 06:59 14:59 Intake Total 2000 300 300 Output Total 600 500 Balance 1400 -200 300 Lab Results Last 24 Hours: Laboratory Results - last 24 hr 12/03/17 12/03/17 12/04/17 Range/Units 16:56 20:55 06:05 WBC 9.43 H (4.23-9.07) K/mm3 RBC 3.91 L (4.63-6.08) M/mm3 Hgb 11.7 L (13.7-17.5) gm/L Hct 34.4 L (40.1-51.0) % MCV 88.0 (79.0-92.2) fl MCH 29.9 (25.7-32.2) pg MCHC 34.0 (32.2-35.5) g/dl RDW Std Deviation 39.8 (35.1-43.9) fL Plt Count 184 (163-337) K/mm3 MPV 11.2 (9.4-12.3) fl Neut % (Auto) 82.8 H (34.0-67.9) % Lymph % (Auto) 6.5 L (21.8-53.1) % [place] % (Auto) 10.5 (5.3-12.2) % Eos % (Auto) 0 L (0.8-7.0) Baso % (Auto) 0.1 (0.1-1.2) % Neut # (Auto) 7.81 H (1.78-5.38) K/mm3 Lymph # (Auto) 0.61 L (1.32-3.57) K/mm3 [place] # (Auto) 0.99 H (0.30-0.82) K/mm3 Eos # (Auto) 0.00 L (0.04-0.54) K/mm3 Baso # (Auto) 0.01 (0.01-0.08) K/mm3 Manual Slide Review Abnormal smear Sodium (136-145) mEq/L Potassium (3.5-5.1) mEq/L Chloride (98-107) mEq/L Carbon Dioxide (21-32) mEq/L Anion Gap (5-15) BUN (7-18) mg/dL Creatinine (0.7-1.3) mg/dL Est Cr Clr Drug Dosing mL/min Estimated GFR (MDRD) (>60) mL/min BUN/Creatinine Ratio (14-18) Glucose (83-115) mg/dL POC Glucose 223 H 245 H (83-110) mg/dL Hemoglobin A1c (4.50-6.20) % Lactic Acid (0.4-2.0) mmol/L Calcium (8.5-10.1) mg/dL C-Reactive Protein (<1.0) mg/dL 12/04/17 12/04/17 12/04/17 Range/Units 06:05 06:05 06:05 WBC (4.23-9.07) K/mm3 RBC (4.63-6.08) M/mm3 Hgb (13.7-17.5) gm/L Hct (40.1-51.0) % MCV (79.0-92.2) fl MCH (25.7-32.2) pg MCHC (32.2-35.5) g/dl RDW Std Deviation (35.1-43.9) fL Plt Count (163-337) K/mm3 MPV (9.4-12.3) fl Neut % (Auto) (34.0-67.9) % Lymph % (Auto) (21.8-53.1) % [place] % (Auto) (5.3-12.2) % Eos % (Auto) (0.8-7.0) Baso % (Auto) (0.1-1.2) % Neut # (Auto) (1.78-5.38) K/mm3 Lymph # (Auto) (1.32-3.57) K/mm3 [place] # (Auto) (0.30-0.82) K/mm3 Eos # (Auto) (0.04-0.54) K/mm3 Baso # (Auto) (0.01-0.08) K/mm3 Manual Slide Review Sodium 136 (136-145) mEq/L Potassium 3.0 L (3.5-5.1) mEq/L Chloride 101 (98-107) mEq/L Carbon Dioxide 27 (21-32) mEq/L Anion Gap 11.0 (5-15) BUN 21 H (7-18) mg/dL Creatinine 1.0 (0.7-1.3) mg/dL Est Cr Clr Drug Dosing 55.30 mL/min Estimated GFR (MDRD) > 60 (>60) mL/min BUN/Creatinine Ratio 21.0 H (14-18) Glucose 216 H (83-115) mg/dL POC Glucose (83-110) mg/dL Hemoglobin A1c 8.20 H (4.50-6.20) % Lactic Acid 2.3 H (0.4-2.0) mmol/L Calcium 7.7 L (8.5-10.1) mg/dL C-Reactive Protein 3.4 H* (<1.0) mg/dL 12/04/17 12/04/17 Range/Units 06:23 10:50 WBC (4.23-9.07) K/mm3 RBC (4.63-6.08) M/mm3 Hgb (13.7-17.5) gm/L Hct (40.1-51.0) % MCV (79.0-92.2) fl MCH (25.7-32.2) pg MCHC (32.2-35.5) g/dl RDW Std Deviation (35.1-43.9) fL Plt Count (163-337) K/mm3 MPV (9.4-12.3) fl Neut % (Auto) (34.0-67.9) % Lymph % (Auto) (21.8-53.1) % [place] % (Auto) (5.3-12.2) % Eos % (Auto) (0.8-7.0) Baso % (Auto) (0.1-1.2) % Neut # (Auto) (1.78-5.38) K/mm3 Lymph # (Auto) (1.32-3.57) K/mm3 [place] # (Auto) (0.30-0.82) K/mm3 Eos # (Auto) (0.04-0.54) K/mm3 Baso # (Auto) (0.01-0.08) K/mm3 Manual Slide Review Sodium (136-145) mEq/L Potassium (3.5-5.1) mEq/L Chloride (98-107) mEq/L Carbon Dioxide (21-32) mEq/L Anion Gap (5-15) BUN (7-18) mg/dL Creatinine (0.7-1.3) mg/dL Est Cr Clr Drug Dosing mL/min Estimated GFR (MDRD) (>60) mL/min BUN/Creatinine Ratio (14-18) Glucose (83-115) mg/dL POC Glucose 207 H 160 H (83-110) mg/dL Hemoglobin A1c (4.50-6.20) % Lactic Acid (0.4-2.0) mmol/L Calcium (8.5-10.1) mg/dL C-Reactive Protein (<1.0) mg/dL Slava Results Last 24 Hours: Microbiology 12/04/17 08:30 Stool for WBCs - Final Stool / Feces - Stool, Aspirate NO WBC SEEN Med Orders - Current: Current Medications Acetaminophen (Tylenol) 650 mg PO Q6H PRN PRN Reason: Pain/Fever Albuterol (Proventil Neb Soln) 2.5 mg NEB Q4HRRT PRN PRN Reason: Shortness of Breath Aspirin (Halfprin) 162 mg PO DAILY [facility] Last Admin: 12/04/17 08:17 Dose: 162 mg Budesonide (Pulmicort) 0.5 mg NEB BIDRT [facility] Last Admin: 12/04/17 06:28 Dose: 0.5 mg Diltiazem HCl (Cardizem Cd) 360 mg PO DAILY [facility] Last Admin: 12/04/17 08:54 Dose: 360 mg Enoxaparin Sodium (Lovenox) 40 mg SUBCUT DAILY [facility] Last Admin: 12/04/17 08:10 Dose: 40 mg Famotidine (Pepcid) 20 mg PO DAILY [facility] Hydrochlorothiazide (Hydrochlorothiazide) 25 mg PO DAILY [facility] Last Admin: 12/04/17 08:17 Dose: 25 mg Promethazine HCl 12.5 mg/ (Sodium Chloride) 50.5 mls @ 100 mls/hr IV Q6H PRN PRN Reason: Nausea/Vomiting Azithromycin 500 mg/ Sodium (Chloride) 250 mls @ 250 mls/hr IV Q24H [facility] Last Admin: 12/03/17 14:08 Dose: 250 mls/hr Insulin Aspart (Novolog) 0 unit SUBCUT QIDACANDBED [facility] PRN Reason: Protocol Last Admin: 12/04/17 11:28 Dose: 2 units Lisinopril (Prinivil) 20 mg PO DAILY [facility] Last Admin: 12/04/17 08:19 Dose: 20 mg Loperamide HCl (Imodium) 2 mg PO Q6H PRN PRN Reason: Diarrhea Lorazepam (Ativan) 0.5 mg PO TID PRN PRN Reason: Anxiety Metoprolol Succinate (Toprol Xl) 50 mg PO DAILY [facility] Last Admin: 12/04/17 08:16 Dose: 50 mg Metoprolol Tartrate (Lopressor) 5 mg IVPUSH Q6H PRN PRN Reason: heart rate >120 Ondansetron HCl (Zofran) 4 mg IVPUSH Q8H PRN PRN Reason: Nausea/Vomiting Brovana 15mcg/2ml (Neb Own Med) 1 each NEB BIDRT [facility] Last Admin: 12/04/17 06:28 Dose: 1 each Potassium Chloride (Klor-Con M20) 40 meq PO BID [facility] Stop: 12/05/17 21:01 Last Admin: 12/04/17 11:39 Dose: 40 meq Simethicone (Simethicone) 80 mg PO Q6H PRN PRN Reason: Indigestion Last Admin: 12/03/17 17:50 Dose: 80 mg Sodium Chloride (Saline Flush) 10 ml FLUSH ASDIRECTED PRN PRN Reason: Keep Vein Open Last Admin: 12/04/17 08:22 Dose: 10 ml Tamsulosin HCl (Flomax) 0.4 mg PO DAILY [facility] Last Admin: 12/04/17 08:30 Dose: 0.4 mg Temazepam (Restoril) 7.5 mg PO BEDTIME PRN PRN Reason: Insomnia Discontinued Medications Acetaminophen (Tylenol) 975 mg PO NOW ONE Stop: 12/02/17 17:05 Last Admin: 12/02/17 17:13 Dose: 975 mg Budesonide (Pulmicort) 0.5 mg INH BIDRT [facility] Last Admin: 12/02/17 23:45 Dose: Not Given Budesonide (Pulmicort) 0.5 mg NEB BIDRT [facility] Last Admin: 12/02/17 22:36 Dose: 0.5 mg Famotidine (Pepcid) 20 mg IVPUSH ONETIME ONE Stop: 12/02/17 17:03 Last Admin: 12/02/17 17:13 Dose: 20 mg Famotidine (Pepcid) 20 mg IVPUSH BID [facility] Famotidine (Pepcid) 20 mg IVPUSH DAILY [facility] Last Admin: 12/04/17 08:11 Dose: 20 mg Sodium Chloride (Normal Saline) 500 mls @ 999 mls/hr IV .BOLUS ONE Stop: 12/02/17 16:07 Last Admin: 12/02/17 15:49 Dose: 999 mls/hr Levofloxacin/Dextrose 750 mg/ (Premix) 150 mls @ 100 mls/hr IV ONETIME ONE Stop: 12/02/17 18:32 Last Admin: 12/02/17 17:13 Dose: 100 mls/hr Sodium Chloride (Normal Saline) 1,000 mls @ 50 mls/hr IV ONETIME ONE Stop: 12/03/17 13:15 Last Admin: 12/02/17 17:16 Dose: 50 mls/hr Promethazine HCl 12.5 mg/ (Sodium Chloride) 50.5 mls @ 100 mls/hr IV Q6H [facility] Last Admin: 12/03/17 06:16 Dose: 100 mls/hr Dextrose/Sodium Chloride (Dextrose 5%-Normal Saline) 1,000 mls @ 100 mls/hr IV ASDIRECTED [facility] Dextrose/Sodium Chloride (Dextrose 5%-Normal Saline) 1,000 mls @ 100 mls/hr IV ASDIRECTED [facility] Dextrose/Sodium Chloride (Dextrose 5%-Normal Saline) 1,000 mls @ 100 mls/hr IV ASDIRECTED [facility] Last Admin: 12/03/17 06:22 Dose: 100 mls/hr Methylprednisolone Sodium Succinate (Solu-Medrol) 80 mg IVPUSH Q8H [facility] Last Admin: 12/03/17 11:26 Dose: Not Given Diltiazem Er 360mg (Cap Own Med) 0 each PO DAILY [facility] Last Admin: 12/03/17 09:52 Dose: Not Given Brovana Neb 15mcg/ (2ml Own Med) 0 each INH BIDRT [facility] Last Admin: 12/02/17 22:35 Dose: 1 each Prednisone (Prednisone) 5 mg PO ASDIRECTED [facility] - Exam Quality Assessment: Supplemental Oxygen (1L), DVT Prophylaxis General: Alert, Oriented, Cooperative, No Acute Distress HEENT: Pupils Equal, Pupils Reactive, EOMI, Mucous Membr. Moist/[place] Neck: Supple, Trachea Midline, No JVD Lungs: Normal Respiratory Effort, Decreased Breath Sounds, Rhonchi (Mild ) Cardiovascular: Regular Rate, Regular Rhythm GI/Abdominal Exam: Normal Bowel Sounds, Soft, Non-Tender, No Organomegaly, No Distention, No Abnormal Bruit, No Mass, Pelvis Stable (Male) Exam: Deferred Back Exam: Normal Inspection, Full Range of Motion Extremities: Normal Inspection, Normal Range of Motion, Non-Tender, No Pedal Edema, Normal Capillary Refill Peripheral Pulses: 1+: Posterior Tibial (L), Posterior Tibial (R), Dorsalis Pedis (L), Dorsalis Pedis (R), 3+: Radial (L), Radial (R) Skin: Warm, Dry, Intact Neurological: No New Focal Deficit Psy/Mental Status: Alert, Normal Affect, Normal Mood - Problem List & Annotations (1) Gastroenteritis SNOMED Code(s): 54374218 Code(s): K52.9 - NONINFECTIVE GASTROENTERITIS AND COLITIS, UNSPECIFIED Status: Resolved Priority: High Current Visit: Yes (2) Mycoplasma pneumonia SNOMED Code(s): 66103915 Code(s): J15.7 - PNEUMONIA DUE TO MYCOPLASMA PNEUMONIAE Status: Acute Priority: High Current Visit: Yes Qualifiers: Laterality: unspecified laterality Lung location: unspecified part of lung Qualified Code(s): J15.7 - Pneumonia due to Mycoplasma pneumoniae (3) BPH (benign prostatic hyperplasia) SNOMED Code(s): 335216758 Code(s): N40.0 - BENIGN PROSTATIC HYPERPLASIA WITHOUT LOWER URINRY TRACT SYMP Status: Chronic Priority: Low Current Visit: No Qualifiers: Lower urinary tract symptom presence: unspecified whether lower urinary tract symptoms present Qualified Code(s): N40.0 - Benign prostatic hyperplasia without lower urinary tract symptoms (4) COPD (chronic obstructive pulmonary disease) SNOMED Code(s): 22337805 Code(s): J44.9 - CHRONIC OBSTRUCTIVE PULMONARY DISEASE, UNSPECIFIED Status : Chronic Priority: Medium Current Visit: Yes Qualifiers: COPD type: unspecified COPD Qualified Code(s): J44.9 - Chronic obstructive pulmonary disease, unspecified (5) Diarrhea SNOMED Code(s): 36181158 Code(s): R19.7 - DIARRHEA, UNSPECIFIED Status: Resolved Priority: High Current Visit: Yes Qualifiers: Diarrhea type: unspecified type Qualified Code(s): R19.7 - Diarrhea, unspecified (6) GERD (gastroesophageal reflux disease) SNOMED Code(s): 115525495 Code(s): K21.9 - GASTRO-ESOPHAGEAL REFLUX DISEASE WITHOUT ESOPHAGITIS Status: Chronic Priority: Low Current Visit: No Qualifiers: Esophagitis presence: esophagitis presence not specified Qualified Code(s) : K21.9 - Gastro-esophageal reflux disease without esophagitis (7) History of AAA (abdominal aortic aneurysm) repair SNOMED Code(s): 213036705 Code(s): Z98.890 - OTHER SPECIFIED POSTPROCEDURAL STATES Status: Chronic Priority: Low Current Visit: No (8) PVD (peripheral vascular disease) SNOMED Code(s): 203913117 Code(s): I73.9 - PERIPHERAL VASCULAR DISEASE, UNSPECIFIED Status: Chronic Priority: Low Current Visit: No - Problem List Review Problem List Initiated/Reviewed/Updated: Yes - My Orders Last 24 Hours: My Active Orders 12/04/17 11:38 MAGNESIUM [CHEM] Routine 12/05/17 05:11 MAGNESIUM [CHEM] AM 12/06/17 05:11 MAGNESIUM [CHEM] AM 12/07/17 05:11 MAGNESIUM [CHEM] AM 12/08/17 05:11 MAGNESIUM [CHEM] AM - Plan Plan:: Impression: Gastroenteritis--resolved; Stool negative Query CAP, LLL infiltrate - repeat CXR stable MYCOPLASMA +, continue droplet isolation History of COPD/emphysema Query Influenza, will run PCR Chronic BPH HTN Query DM HLD PVD with AAA endovascular repair Plan: IVF IV steroids as needed Antiemetic as needed/scheduled Clear liquids advanced as tolerated --> ADA diet IV Levoquin/Nebs Infectious work up: resp/stool, stool negative Daily labs Home meds Consult PT/OT/CM (re: ) DVT/GI prophylaxis ]
[2017-12-04] MEDS: Azithromycin 500 MG in Sodium Chloride 0.9% 250 ML IV SCH (13:38)
[2017-12-05] MEDS: Budesonide 0.5 MG/2 ML Neb Susp NEB SCH ×3 (06:22→23:36)
[2017-12-05] MEDS: BROVANA 15 MCG/2 ML NEB SCH ×2 (06:22→23:29)
--- NOTE | 2017-12-05 07:44 | PCM.PN ---
- General Info Date of Service: 12/05/17 Admission Dx/Problem (Free Text): Admission Diagnosis/Problem Admission Diagnosis/Problem Pneumonia Arnel is seen this morning, resting comfortably, daughter in room with him. Denies c/o pain/discomfort. Is still coughing but not getting much up. Overall feels much better as of this morning. Functional Status: Reports: Pain Controlled, Tolerating Diet, Ambulating, Urinating - Review of Systems General: Reports: Weakness (improved). Denies: Fever HEENT: Reports: No Symptoms Pulmonary: Reports: Shortness of Breath (minimal), Cough. Denies: Sputum Cardiovascular: Reports: No Symptoms. Denies: Chest Pain Gastrointestinal: Reports: No Symptoms. Denies: Diarrhea, Nausea, Vomiting Genitourinary: Reports: No Symptoms Neurological: Reports: No Symptoms - Patient Data Vitals - Most Recent: Last Vital Signs Temp 98.1 F 12/05/17 06:01 Pulse 68 12/05/17 06:01 Resp 20 12/05/17 06:01 BP 136/63 12/05/17 06:01 Pulse Ox 99 12/05/17 06:23 Weight - Most Recent: 149 lb 11.2 oz I&O - Last 24 Hours: Intake & Output 12/04/17 12/05/17 12/05/17 22:59 06:59 14:59 Intake Total 670 400 Output Total 1000 Balance 670 -600 Lab Results Last 24 Hours: Laboratory Results - last 24 hr 12/04/17 12/04/17 12/04/17 Range/Units 06:05 06:05 10:50 POC Glucose 160 H (83-110) mg/dL Hemoglobin A1c 8.20 H (4.50-6.20) % Magnesium 1.8 (1.8-2.4) mg/dl 12/04/17 12/04/17 12/05/17 Range/Units 18:03 21:52 05:59 POC Glucose 139 H 172 H 158 H (83-110) mg/dL Hemoglobin A1c (4.50-6.20) % Magnesium (1.8-2.4) mg/dl Slava Results Last 24 Hours: Microbiology 12/04/17 08:30 Stool for WBCs - Final Stool / Feces - Stool, Aspirate NO WBC SEEN Med Orders - Current: Current Medications Acetaminophen (Tylenol) 650 mg PO Q6H PRN PRN Reason: Pain/Fever Albuterol (Proventil Neb Soln) 2.5 mg NEB Q4HRRT PRN PRN Reason: Shortness of Breath Last Admin: 12/04/17 17:34 Dose: 2.5 mg Aspirin (Halfprin) 162 mg PO DAILY [facility] Last Admin: 12/04/17 08:17 Dose: 162 mg Budesonide (Pulmicort) 0.5 mg NEB BIDRT [facility] Last Admin: 12/05/17 06:22 Dose: 0.5 mg Diltiazem HCl (Cardizem Cd) 360 mg PO DAILY [facility] Last Admin: 12/04/17 08:54 Dose: 360 mg Enoxaparin Sodium (Lovenox) 40 mg SUBCUT DAILY [facility] Last Admin: 12/04/17 08:10 Dose: 40 mg Famotidine (Pepcid) 20 mg PO DAILY [facility] Hydrochlorothiazide (Hydrochlorothiazide) 25 mg PO DAILY [facility] Last Admin: 12/04/17 08:17 Dose: 25 mg Promethazine HCl 12.5 mg/ (Sodium Chloride) 50.5 mls @ 100 mls/hr IV Q6H PRN PRN Reason: Nausea/Vomiting Azithromycin 500 mg/ Sodium (Chloride) 250 mls @ 250 mls/hr IV Q24H [facility] Last Admin: 12/04/17 13:38 Dose: 250 mls/hr Insulin Aspart (Novolog) 0 unit SUBCUT QIDACANDBED [facility] PRN Reason: Protocol Last Admin: 12/04/17 22:05 Dose: 2 units Lisinopril (Prinivil) 20 mg PO DAILY [facility] Last Admin: 12/04/17 08:19 Dose: 20 mg Loperamide HCl (Imodium) 2 mg PO Q6H PRN PRN Reason: Diarrhea Lorazepam (Ativan) 0.5 mg PO TID PRN PRN Reason: Anxiety Metoprolol Succinate (Toprol Xl) 50 mg PO DAILY [facility] Last Admin: 12/04/17 08:16 Dose: 50 mg Metoprolol Tartrate (Lopressor) 5 mg IVPUSH Q6H PRN PRN Reason: heart rate >120 Ondansetron HCl (Zofran) 4 mg IVPUSH Q8H PRN PRN Reason: Nausea/Vomiting Brovana 15mcg/2ml (Neb Own Med) 1 each NEB BIDRT [facility] Last Admin: 12/05/17 06:22 Dose: 1 each Potassium Chloride (Klor-Con M20) 40 meq PO BID [facility] Stop: 12/05/17 21:01 Last Admin: 12/04/17 22:04 Dose: 40 meq Simethicone (Simethicone) 80 mg PO Q6H PRN PRN Reason: Indigestion Last Admin: 12/03/17 17:50 Dose: 80 mg Sodium Chloride (Saline Flush) 10 ml FLUSH ASDIRECTED PRN PRN Reason: Keep Vein Open Last Admin: 12/04/17 08:22 Dose: 10 ml Tamsulosin HCl (Flomax) 0.4 mg PO DAILY [facility] Last Admin: 12/04/17 08:30 Dose: 0.4 mg Temazepam (Restoril) 7.5 mg PO BEDTIME PRN PRN Reason: Insomnia Discontinued Medications Acetaminophen (Tylenol) 975 mg PO NOW ONE Stop: 12/02/17 17:05 Last Admin: 12/02/17 17:13 Dose: 975 mg Budesonide (Pulmicort) 0.5 mg INH BIDRT [facility] Last Admin: 12/02/17 23:45 Dose: Not Given Budesonide (Pulmicort) 0.5 mg NEB BIDRT [facility] Last Admin: 12/02/17 22:36 Dose: 0.5 mg Famotidine (Pepcid) 20 mg IVPUSH ONETIME ONE Stop: 12/02/17 17:03 Last Admin: 12/02/17 17:13 Dose: 20 mg Famotidine (Pepcid) 20 mg IVPUSH BID [facility] Famotidine (Pepcid) 20 mg IVPUSH DAILY [facility] Last Admin: 12/04/17 08:11 Dose: 20 mg Sodium Chloride (Normal Saline) 500 mls @ 999 mls/hr IV .BOLUS ONE Stop: 12/02/17 16:07 Last Admin: 12/02/17 15:49 Dose: 999 mls/hr Levofloxacin/Dextrose 750 mg/ (Premix) 150 mls @ 100 mls/hr IV ONETIME ONE Stop: 12/02/17 18:32 Last Admin: 12/02/17 17:13 Dose: 100 mls/hr Sodium Chloride (Normal Saline) 1,000 mls @ 50 mls/hr IV ONETIME ONE Stop: 12/03/17 13:15 Last Admin: 12/02/17 17:16 Dose: 50 mls/hr Promethazine HCl 12.5 mg/ (Sodium Chloride) 50.5 mls @ 100 mls/hr IV Q6H [facility] Last Admin: 12/03/17 06:16 Dose: 100 mls/hr Dextrose/Sodium Chloride (Dextrose 5%-Normal Saline) 1,000 mls @ 100 mls/hr IV ASDIRECTED [place] Dextrose/Sodium Chloride (Dextrose 5%-Normal Saline) 1,000 mls @ 100 mls/hr IV ASDIRECTED [place] Dextrose/Sodium Chloride (Dextrose 5%-Normal Saline) 1,000 mls @ 100 mls/hr IV ASDIRECTED [facility] Last Admin: 12/03/17 06:22 Dose: 100 mls/hr Methylprednisolone Sodium Succinate (Solu-Medrol) 80 mg IVPUSH Q8H [facility] Last Admin: 12/03/17 11:26 Dose: Not Given Diltiazem Er 360mg (Cap Own Med) 0 each PO DAILY [facility] Last Admin: 12/03/17 09:52 Dose: Not Given Brovana Neb 15mcg/ (2ml Own Med) 0 each INH BIDRT [facility] Last Admin: 12/02/17 22:35 Dose: 1 each Prednisone (Prednisone) 5 mg PO ASDIRECTED [facility] - Exam Quality Assessment: Supplemental Oxygen (1L/NC), DVT Prophylaxis General: Alert, Oriented, Cooperative, No Acute Distress HEENT: Pupils Equal, EOMI, Mucous Membr. Moist/[place] Neck: Supple Lungs: Normal Respiratory Effort, Decreased Breath Sounds, Wheezing (scattered) Cardiovascular: Regular Rate, Regular Rhythm GI/Abdominal Exam: Normal Bowel Sounds, Soft, Non-Tender (Male) Exam: Deferred Back Exam: Normal Inspection Extremities: No Pedal Edema, Normal Capillary Refill Peripheral Pulses: 1+: Dorsalis Pedis (L), Dorsalis Pedis (R) Neurological: No New Focal Deficit Psy/Mental Status: Alert, Normal Affect, Normal Mood - Problem List & Annotations (1) Mycoplasma pneumonia SNOMED Code(s): 69675272 Code(s): J15.7 - PNEUMONIA DUE TO MYCOPLASMA PNEUMONIAE Status: Acute Priority: High Current Visit: Yes Qualifiers: Laterality: unspecified laterality Lung location: unspecified part of lung Qualified Code(s): J15.7 - Pneumonia due to Mycoplasma pneumoniae (2) COPD (chronic obstructive pulmonary disease) SNOMED Code(s): 27088547 Code(s): J44.9 - CHRONIC OBSTRUCTIVE PULMONARY DISEASE, UNSPECIFIED Status : Chronic Priority: High Current Visit: Yes Qualifiers: COPD type: COPD with acute exacerbation Qualified Code(s): J44.1 - Chronic obstructive pulmonary disease with (acute) exacerbation (3) Diarrhea SNOMED Code(s): 59958254 Code(s): R19.7 - DIARRHEA, UNSPECIFIED Status: Resolved Priority: High Current Visit: Yes Qualifiers: Diarrhea type: unspecified type Qualified Code(s): R19.7 - Diarrhea, unspecified (4) Gastroenteritis SNOMED Code(s): 25957538 Code(s): K52.9 - NONINFECTIVE GASTROENTERITIS AND COLITIS, UNSPECIFIED Status: Resolved Priority: High Current Visit: Yes - Problem List Review Problem List Initiated/Reviewed/Updated: Yes - Plan Plan:: Impression/Plan: LLL PNA-- Mycoplasma positive -Supplemental oxygen for saturations <90% -cont Zithromax QD -RT/Nebs/FV/IS -Mucinex BID -Florastor BID -Repeat CXR done yesterday is stable and with mild increased lung markings. Will plan repeat CXR tomorrow morning -BC, Flu and strep A screening all negative Hypokalemia--3.0--resolved and mormal today -Replete and monitor with daily labs -Follow mag levels Newly Dx DM -A1C 8.2 -Accuchecks AC/HS, SSI -CDE - Cont on home meds of ASA, ACEI, will check lipid panel- likely will need statin therapy. Start metformin 500mg QHS, titrate up as tolerated. -Follow up with PCP after discharge Gastroenteritis--resolved; Stool negative Chronic: Cont Home meds BPH HTN Query DM--A1C is 8.2. Accuchecks AC/HS with SSI, CDE---as above HLD-- no statin or medications on home list- as above, check lipid panel. PVD with AAA endovascular repair Other: Clear liquids advanced as tolerated --> ADA diet now, tolerating well. Daily labs Home meds Consult PT/OT/CM (re: ) DVT/GI prophylaxis CM for assist with DC planning-- Plan for 2 more days of IV abx, repeat CXR. LOS will be >96 hours due to slower response to treatment, PNA and newly dx DM. Patient is DNR code status. ]
[2017-12-05] MEDS: Insulin Aspart 100 Units/ML 3 ML Pen SUBCUT SCH ×4 (08:31→22:17)
[2017-12-05] MEDS: Hydrochlorothiazide 25 MG Tab PO SCH (08:38)
[2017-12-05] MEDS: Lisinopril 20 MG Tab PO SCH (08:38)
[2017-12-05] MEDS: Aspirin 81 MG Tab.EC PO SCH (08:38)
[2017-12-05] MEDS: Tamsulosin 0.4 MG Cap.ER PO SCH (08:38)
[2017-12-05] MEDS: Famotidine 20 MG Tab PO SCH (08:38)
[2017-12-05] MEDS: Metoprolol Succinate 50 MG Tab.ER PO SCH (08:39)
[2017-12-05] MEDS: Potassium Chloride 20 MEQ Tab.ER PO SCH ×2 (08:39→22:11)
[2017-12-05] MEDS: guaiFENesin 600 MG Tab.ER PO SCH ×2 (08:39→22:10)
[2017-12-05] MEDS: Enoxaparin 40 MG/0.4 ML Syringe SUBCUT SCH (08:40)
[2017-12-05] MEDS: Saccharomyces Boulardii (Probiotic) 250 MG Cap PO SCH ×2 (08:40→22:12)
[2017-12-05] MEDS: Diltiazem 180 MG Cap.CD PO SCH (08:40)
[2017-12-05] MEDS: Azithromycin 500 MG in Sodium Chloride 0.9% 250 ML IV SCH (12:21)
[2017-12-05] MEDS: metFORMIN 500 MG Tab PO SCH (17:14)
[2017-12-05] MEDS: Simethicone 80 MG Tab.Chew PO PRN (22:11)
[2017-12-06] MEDS: BROVANA 15 MCG/2 ML NEB SCH (05:43)
[2017-12-06] MEDS: Budesonide 0.5 MG/2 ML Neb Susp NEB SCH (05:43)
[2017-12-06] MEDS: Insulin Aspart 100 Units/ML 3 ML Pen SUBCUT SCH ×2 (08:51→11:28)
[2017-12-06] MEDS: Enoxaparin 40 MG/0.4 ML Syringe SUBCUT SCH (08:53)
[2017-12-06] MEDS: metFORMIN 500 MG Tab PO SCH (08:54)
[2017-12-06] MEDS: Hydrochlorothiazide 25 MG Tab PO SCH (08:54)
[2017-12-06] MEDS: Lisinopril 20 MG Tab PO SCH (08:54)
[2017-12-06] MEDS: Metoprolol Succinate 50 MG Tab.ER PO SCH (08:55)
[2017-12-06] MEDS: Diltiazem 180 MG Cap.CD PO SCH (08:56)
[2017-12-06] MEDS: Saccharomyces Boulardii (Probiotic) 250 MG Cap PO SCH (10:06)
[2017-12-06] MEDS: Tamsulosin 0.4 MG Cap.ER PO SCH (10:06)
[2017-12-06] MEDS: guaiFENesin 600 MG Tab.ER PO SCH (10:06)
[2017-12-06] MEDS: Famotidine 20 MG Tab PO SCH (10:07)
[2017-12-06] MEDS: Aspirin 81 MG Tab.EC PO SCH (10:07)
--- NOTE | 2017-12-06 10:36 | CR ---
Chest: Two views of the chest are obtained. Comparison: Prior chest x-ray of 12/04/17. Heart size is normal. Tortuous thoracic aorta is seen. Lung markings are increased which appear chronic. No acute parenchymal densities are appreciated. Lungs are hyperinflated compatible with emphysematous change. Bony structures are within normal limits for the patient's age. Surgical clips are seen within the upper abdomen. Incidental resection of several left sided rib fractures. Emphysematous change. Other findings as noted above. No significant change is seen from previous study. Diagnostic code #2
--- NOTE | 2017-12-06 10:58 | PCM.DCSUM1 ---
Discharge Summary - Hospital Course Free Text/Narrative:: 82 year old male with history of emphysema presented with a complaint of SOB. 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 He has had a cough for 1 day associated with fever and chills. The patient's family were concerned that he may have had the flu, the screen was negative in the ED. he also mentioned a fever with shaking chills several hours prior to presenting to the ED. A CXR suggest a LLL infiltrate. He will be admitted to obs with telemetry, PNA is strongly suspected. An Influenza screen will be repeated. - Discharge Data Discharge Date: 12/06/17 (admit date 12/02/17) Discharge Disposition: Home, Self-Care 01 Condition: Good - Discharge Diagnosis/Problem(s) (1) Mycoplasma pneumonia SNOMED Code(s): 60378724 ICD Code: J15.7 - PNEUMONIA DUE TO MYCOPLASMA PNEUMONIAE Status: Acute Priority: High Current Visit: Yes Qualifiers: Laterality: unspecified laterality Lung location: unspecified part of lung Qualified Code(s): J15.7 - Pneumonia due to Mycoplasma pneumoniae (2) COPD (chronic obstructive pulmonary disease) SNOMED Code(s): 42371038 ICD Code: J44.9 - CHRONIC OBSTRUCTIVE PULMONARY DISEASE, UNSPECIFIED Status : Chronic Priority: High Current Visit: Yes Qualifiers: COPD type: COPD with acute exacerbation Qualified Code(s): J44.1 - Chronic obstructive pulmonary disease with (acute) exacerbation (3) Diarrhea SNOMED Code(s): 53477951 ICD Code: R19.7 - DIARRHEA, UNSPECIFIED Status: Resolved Priority: High Current Visit: Yes Qualifiers: Diarrhea type: unspecified type Qualified Code(s): R19.7 - Diarrhea, unspecified (4) Gastroenteritis SNOMED Code(s): 10596417 ICD Code: K52.9 - NONINFECTIVE GASTROENTERITIS AND COLITIS, UNSPECIFIED Status: Resolved Priority: High Current Visit: Yes (5) Type 2 diabetes mellitus SNOMED Code(s): 60209844 ICD Code: E11.9 - TYPE 2 DIABETES MELLITUS WITHOUT COMPLICATIONS Status: Acute Priority: High Current Visit: Yes Qualifiers: Diabetes mellitus complication status: without complication Diabetes mellitus group fitness manager insulin use: without group fitness manager use Qualified Code(s): E11.9 - Type 2 diabetes mellitus without complications - Patient Summary/Data Operative Procedure(s) Performed: None Complications: None Consults: Consultations 12/03/17 12:52 Consult to Physical Therapy [PT Evaluation and Treatment] [CONS] Routine 12/03/17 12:54 Consult to Case Management [CONS] Routine Consult to Occupational Therapy [OT Evaluation and Treatment] [CONS] Routine 12/04/17 13:17 Consult to Sustainable Design Coordinator [Consult to Diabetic Nurse Specialist] [CONS] Routine Labs Pending at D/C: None Recommended Follow-up Testing/Procedures: Patient DC instructions: Follow up with Ryley Fernandes PA-C within one week of discharge -Recommend A1C lab test in 3 months to follow blood sugars/diabetes Can follow up with Margarita childbirth educator, with [facility] as outpatient if you wish for further diabetic education. Can call clinic to schedule appointment if you wish, . Supplemental oxygen at 1-2L/NC until follow up with PCP and recheck of oxygen saturations. Likely will only need this for a few more days. Planned Operative Procedure(s) after DC: None Hospital Course: Impression/Plan: LLL PNA-- Mycoplasma positive -Supplemental oxygen for saturations <90% -cont Zithromax QD -RT/Nebs/FV/IS -Mucinex BID -Florastor BID -Repeat CXR was stable and with mild increased lung markings. Repeat today, also stable and without new findings. -BC, Flu and strep A screening all negative Hypokalemia--3.0--resolved and normal today -Replete and monitor with daily labs -Follow mag levels--WNL Newly Dx DM -A1C 8.2 -Accuchecks AC/HS, SSI during hospital stay- no need for SSI at discharge, sugars improved with tx of infection. -CDE - Cont on home meds of ASA, ACEI, Lipid panel is excellent. Start metformin 500mg QHS, titrate up as tolerated. -Follow up with PCP after discharge, can also f/up with CDE if he wishes. Gastroenteritis--resolved; Stool negative Chronic: Cont Home meds BPH HTN--stable Query DM--A1C is 8.2. Accuchecks AC/HS with SSI, CDE---as above HLD-- no statin or medications on home list- as above, check lipid panel. PVD with AAA endovascular repair Other: Clear liquids advanced as tolerated --> ADA diet now, tolerating well. Daily labs Home meds Consult PT/OT/CM DVT/GI prophylaxis CM for assist with DC planning-- Plan DC this afternoon after next dose of IV abx, then dc home with supplemental oxygen until f/up with PCP, PO zithromax and usual home nebs and prednisone dose. Patient is DNR code status. PCP is Ryley Fernandes, PAC with [facility] - Patient Instructions Diet: Heart Healthy Diet, Drink 8-10+ Glasses/Day, Diabetic Diet Activity: As Tolerated Showering/Bathing: May Shower Notify Provider of: Fever, Increased Pain, Nausea and/or Vomiting - Discharge Plan Prescriptions/Med Rec: Azithromycin [Zithromax] 500 mg PO DAILY #5 tab guaiFENesin [Mucinex] 1,200 mg PO BID #30 tab.er metFORMIN [Glucophage] 500 mg PO DAILY #30 tablet Home Medications: Home Meds Albuterol [Proair HFA] 1 puff IH Q4H PRN 12/02/17 [History] Aspirin [Halfprin] 162 mg PO DAILY 12/02/17 [History] Budesonide [Pulmicort] 0.5 mg IH DAILY 12/02/17 [History] Diltiazem HCl [Taztia Xt] 360 mg PO DAILY 12/02/17 [History] Hydrochlorothiazide 25 mg PO DAILY 12/02/17 [History] Ipratropium [Atrovent HFA] 1 puff INH Q8H 12/02/17 [History] LORazepam 0.5 mg PO TID PRN 12/02/17 [History] Lisinopril 20 mg PO DAILY 12/02/17 [History] Metoprolol Succinate 50 mg PO DAILY 12/02/17 [History] Multivitamin [Multivitamins] 1 each PO DAILY 12/02/17 [History] Prednisone [IJD: Prednisone] 5 mg PO ASDIRECTED 12/02/17 [History] Tamsulosin [Flomax] 0.4 mg PO DAILY 12/02/17 [History] Azithromycin [Zithromax] 500 mg PO DAILY #5 tab 12/06/17 [Rx] guaiFENesin [Mucinex] 1,200 mg PO BID #30 tab.er 12/06/17 [Rx] metFORMIN [Glucophage] 500 mg PO DAILY #30 tablet 12/06/17 [Rx] Patient Handouts: Type 2 Diabetes Mellitus, Diagnosis, Adult, Chronic Obstructive Pulmonary Disease, [id number], Community-Acquired Pneumonia, Adult , [id number] Forms: ED Department Discharge Referrals: Ryley Fernandes PA-C [Primary Care Provider] - - Discharge Summary/Plan Comment DC Time >30 min.: Yes (45 min) - General Info Date of Service: 12/06/17 Admission Dx/Problem (Free Text: Admission Diagnosis/Problem Admission Diagnosis/Problem Pneumonia Arnel is seen this morning, resting comfortably. Denies c/o pain/discomfort. Is still coughing but not getting much up. Overall feels much better, strength much improved today. Slept very well overnight. Plans for DC home this afternoon. Was started on metformin last night, tolerated well thus far. Functional Status: Reports: Pain Controlled, Tolerating Diet, Ambulating, Urinating, Incentive Spirometry. Denies: New Symptoms - Review of Systems General: Reports: Weakness (much improved today). Denies: Fever HEENT: Reports: No Symptoms. Denies: Headaches Pulmonary: Reports: Cough. Denies: Shortness of Breath (resolving/minimal-- chronic and at baseline), Sputum Cardiovascular: Reports: No Symptoms. Denies: Chest Pain Gastrointestinal: Reports: No Symptoms. Denies: Abdominal Pain, Diarrhea, Nausea, Vomiting Genitourinary: Reports: No Symptoms Neurological: Reports: No Symptoms - Patient Data Vitals - Most Recent: Last Vital Signs Temp 97.3 F 12/06/17 08:49 Pulse 80 12/06/17 08:55 Resp 16 12/06/17 08:49 BP 135/64 12/06/17 08:55 Pulse Ox 98 12/06/17 08:49 Weight - Most Recent: 149 lb I&O - Last 24 hours: Intake & Output 12/05/17 12/06/17 12/06/17 22:59 06:59 14:59 Intake Total 770 300 Output Total 400 500 Balance 370 -200 Lab Results - Last 24 hrs: Laboratory Results - last 24 hr 12/05/17 12/05/17 12/05/17 Range/Units 06:55 12:18 17:13 WBC (4.23-9.07) K/mm3 RBC (4.63-6.08) M/mm3 Hgb (13.7-17.5) gm/L Hct (40.1-51.0) % MCV (79.0-92.2) fl MCH (25.7-32.2) pg MCHC (32.2-35.5) g/dl RDW Std Deviation (35.1-43.9) fL Plt Count (163-337) K/mm3 MPV (9.4-12.3) fl Neut % (Auto) (34.0-67.9) % Lymph % (Auto) (21.8-53.1) % Coleman % (Auto) (5.3-12.2) % Eos % (Auto) (0.8-7.0) Baso % (Auto) (0.1-1.2) % Neut # (Auto) (1.78-5.38) K/mm3 Lymph # (Auto) (1.32-3.57) K/mm3 Coleman # (Auto) (0.30-0.82) K/mm3 Eos # (Auto) (0.04-0.54) K/mm3 Baso # (Auto) (0.01-0.08) K/mm3 Sodium (136-145) mEq/L Potassium (3.5-5.1) mEq/L Chloride (98-107) mEq/L Carbon Dioxide (21-32) mEq/L Anion Gap (5-15) BUN (7-18) mg/dL Creatinine (0.7-1.3) mg/dL Est Cr Clr Drug Dosing mL/min Estimated GFR (MDRD) (>60) mL/min BUN/Creatinine Ratio (14-18) Glucose (83-115) mg/dL POC Glucose 124 H 182 H (83-110) mg/dL Lactic Acid (0.4-2.0) mmol/L Calcium (8.5-10.1) mg/dL Magnesium (1.8-2.4) mg/dl C-Reactive Protein (<1.0) mg/dL Triglycerides 157 H (<150) mg/dL Cholesterol 100 (<200) mg/dL LDL Cholesterol Direct 45 (<100) mg/dL HDL Cholesterol 36.0 L (40-59) mg/dL 12/05/17 12/06/17 12/06/17 Range/Units 22:16 06:08 06:10 WBC 5.86 (4.23-9.07) K/mm3 RBC 4.44 L (4.63-6.08) M/mm3 Hgb 13.4 L (13.7-17.5) gm/L Hct 39.9 L (40.1-51.0) % MCV 89.9 (79.0-92.2) fl MCH 30.2 (25.7-32.2) pg MCHC 33.6 (32.2-35.5) g/dl RDW Std Deviation 42.3 (35.1-43.9) fL Plt Count 244 (163-337) K/mm3 MPV 10.4 (9.4-12.3) fl Neut % (Auto) 54.8 (34.0-67.9) % Lymph % (Auto) 29.5 (21.8-53.1) % Coleman % (Auto) 11.1 (5.3-12.2) % Eos % (Auto) 3.6 (0.8-7.0) Baso % (Auto) 0.3 (0.1-1.2) % Neut # (Auto) 3.21 (1.78-5.38) K/mm3 Lymph # (Auto) 1.73 (1.32-3.57) K/mm3 Coleman # (Auto) 0.65 (0.30-0.82) K/mm3 Eos # (Auto) 0.21 (0.04-0.54) K/mm3 Baso # (Auto) 0.02 (0.01-0.08) K/mm3 Sodium (136-145) mEq/L Potassium (3.5-5.1) mEq/L Chloride (98-107) mEq/L Carbon Dioxide (21-32) mEq/L Anion Gap (5-15) BUN (7-18) mg/dL Creatinine (0.7-1.3) mg/dL Est Cr Clr Drug Dosing mL/min Estimated GFR (MDRD) (>60) mL/min BUN/Creatinine Ratio (14-18) Glucose (83-115) mg/dL POC Glucose 160 H 159 H (83-110) mg/dL Lactic Acid (0.4-2.0) mmol/L Calcium (8.5-10.1) mg/dL Magnesium (1.8-2.4) mg/dl C-Reactive Protein (<1.0) mg/dL Triglycerides (<150) mg/dL Cholesterol (<200) mg/dL LDL Cholesterol Direct (<100) mg/dL HDL Cholesterol (40-59) mg/dL 12/06/17 12/06/17 12/06/17 Range/Units 06:10 06:10 06:10 WBC (4.23-9.07) K/mm3 RBC (4.63-6.08) M/mm3 Hgb (13.7-17.5) gm/L Hct (40.1-51.0) % MCV (79.0-92.2) fl MCH (25.7-32.2) pg MCHC (32.2-35.5) g/dl RDW Std Deviation (35.1-43.9) fL Plt Count (163-337) K/mm3 MPV (9.4-12.3) fl Neut % (Auto) (34.0-67.9) % Lymph % (Auto) (21.8-53.1) % Coleman % (Auto) (5.3-12.2) % Eos % (Auto) (0.8-7.0) Baso % (Auto) (0.1-1.2) % Neut # (Auto) (1.78-5.38) K/mm3 Lymph # (Auto) (1.32-3.57) K/mm3 Coleman # (Auto) (0.30-0.82) K/mm3 Eos # (Auto) (0.04-0.54) K/mm3 Baso # (Auto) (0.01-0.08) K/mm3 Sodium 138 (136-145) mEq/L Potassium 4.1 (3.5-5.1) mEq/L Chloride 102 (98-107) mEq/L Carbon Dioxide 28 (21-32) mEq/L Anion Gap 12.1 (5-15) BUN 15 (7-18) mg/dL Creatinine 0.9 (0.7-1.3) mg/dL Est Cr Clr Drug Dosing 59.45 mL/min Estimated GFR (MDRD) > 60 (>60) mL/min BUN/Creatinine Ratio 16.7 (14-18) Glucose 164 H (83-115) mg/dL POC Glucose (83-110) mg/dL Lactic Acid 1.2 (0.4-2.0) mmol/L Calcium 8.8 (8.5-10.1) mg/dL Magnesium 2.0 (1.8-2.4) mg/dl C-Reactive Protein 0.8 (<1.0) mg/dL Triglycerides (<150) mg/dL Cholesterol (<200) mg/dL LDL Cholesterol Direct (<100) mg/dL HDL Cholesterol (40-59) mg/dL [facility] Results - Last 24 hrs: Microbiology 12/03/17 02:25 Streptococcus pneumoniae Antigen (M - Final Urine Med Orders - Current: Current Medications Acetaminophen (Tylenol) 650 mg PO Q6H PRN PRN Reason: Pain/Fever Albuterol (Proventil Neb Soln) 2.5 mg NEB Q4HRRT PRN PRN Reason: Shortness of Breath Last Admin: 12/04/17 17:34 Dose: 2.5 mg Aspirin (Halfprin) 162 mg PO DAILY [facility] Last Admin: 12/06/17 10:07 Dose: 162 mg Budesonide (Pulmicort) 0.5 mg NEB BIDRT [facility] Last Admin: 12/06/17 05:43 Dose: 0.5 mg Diltiazem HCl (Cardizem Cd) 360 mg PO DAILY [facility] Last Admin: 12/06/17 08:56 Dose: 360 mg Enoxaparin Sodium (Lovenox) 40 mg SUBCUT DAILY [facility] Last Admin: 12/06/17 08:53 Dose: 40 mg Famotidine (Pepcid) 20 mg PO DAILY [facility] Last Admin: 12/06/17 10:07 Dose: 20 mg Guaifenesin (Mucinex) 1,200 mg PO BID [facility] Last Admin: 12/06/17 10:06 Dose: 1,200 mg Hydrochlorothiazide (Hydrochlorothiazide) 25 mg PO DAILY [facility] Last Admin: 12/06/17 08:54 Dose: 25 mg Azithromycin 500 mg/ Sodium (Chloride) 250 mls @ 250 mls/hr IV Q24H [facility] Last Admin: 12/05/17 12:21 Dose: 250 mls/hr Insulin Aspart (Novolog) 0 unit SUBCUT QIDACANDBED [facility] PRN Reason: Protocol Last Admin: 12/06/17 08:51 Dose: 2 units Lisinopril (Prinivil) 20 mg PO DAILY [facility] Last Admin: 12/06/17 08:54 Dose: 20 mg Loperamide HCl (Imodium) 2 mg PO Q6H PRN PRN Reason: Diarrhea Lorazepam (Ativan) 0.5 mg PO TID PRN PRN Reason: Anxiety Metformin HCl (Glucophage) 500 mg PO DAILY [facility] Last Admin: 12/06/17 08:54 Dose: 500 mg Metoprolol Succinate (Toprol Xl) 50 mg PO DAILY [facility] Last Admin: 12/06/17 08:55 Dose: 50 mg Metoprolol Tartrate (Lopressor) 5 mg IVPUSH Q6H PRN PRN Reason: heart rate >120 Ondansetron HCl (Zofran) 4 mg IVPUSH Q8H PRN PRN Reason: Nausea/Vomiting Brovana 15mcg/2ml (Neb Own Med) 1 each NEB BIDRT [facility] Last Admin: 12/06/17 05:43 Dose: 1 each Saccharomyces Boulardii (Florastor) 250 mg PO BID [facility] Last Admin: 12/06/17 10:06 Dose: 250 mg Simethicone (Simethicone) 80 mg PO Q6H PRN PRN Reason: Indigestion Last Admin: 12/05/17 22:11 Dose: 80 mg Sodium Chloride (Saline Flush) 10 ml FLUSH ASDIRECTED PRN PRN Reason: Keep Vein Open Last Admin: 12/04/17 08:22 Dose: 10 ml Tamsulosin HCl (Flomax) 0.4 mg PO DAILY [facility] Last Admin: 12/06/17 10:06 Dose: 0.4 mg Temazepam (Restoril) 7.5 mg PO BEDTIME PRN PRN Reason: Insomnia Last Admin: 12/05/17 22:11 Dose: 7.5 mg Discontinued Medications Acetaminophen (Tylenol) 975 mg PO NOW ONE Stop: 12/02/17 17:05 Last Admin: 12/02/17 17:13 Dose: 975 mg Budesonide (Pulmicort) 0.5 mg INH BIDRT [facility] Last Admin: 12/02/17 23:45 Dose: Not Given Budesonide (Pulmicort) 0.5 mg NEB BIDRT [facility] Last Admin: 12/02/17 22:36 Dose: 0.5 mg Famotidine (Pepcid) 20 mg IVPUSH ONETIME ONE Stop: 12/02/17 17:03 Last Admin: 12/02/17 17:13 Dose: 20 mg Famotidine (Pepcid) 20 mg IVPUSH BID [facility] Famotidine (Pepcid) 20 mg IVPUSH DAILY [facility] Last Admin: 12/04/17 08:11 Dose: 20 mg Sodium Chloride (Normal Saline) 500 mls @ 999 mls/hr IV .BOLUS ONE Stop: 12/02/17 16:07 Last Admin: 12/02/17 15:49 Dose: 999 mls/hr Levofloxacin/Dextrose 750 mg/ (Premix) 150 mls @ 100 mls/hr IV ONETIME ONE Stop: 12/02/17 18:32 Last Admin: 12/02/17 17:13 Dose: 100 mls/hr Sodium Chloride (Normal Saline) 1,000 mls @ 50 mls/hr IV ONETIME ONE Stop: 12/03/17 13:15 Last Admin: 12/02/17 17:16 Dose: 50 mls/hr Promethazine HCl 12.5 mg/ (Sodium Chloride) 50.5 mls @ 100 mls/hr IV Q6H [facility] Last Admin: 12/03/17 06:16 Dose: 100 mls/hr Dextrose/Sodium Chloride (Dextrose 5%-Normal Saline) 1,000 mls @ 100 mls/hr IV ASDIRECTED [facility] Dextrose/Sodium Chloride (Dextrose 5%-Normal Saline) 1,000 mls @ 100 mls/hr IV ASDIRECTED [facility] Dextrose/Sodium Chloride (Dextrose 5%-Normal Saline) 1,000 mls @ 100 mls/hr IV ASDIRECTED [facility] Last Admin: 12/03/17 06:22 Dose: 100 mls/hr Promethazine HCl 12.5 mg/ (Sodium Chloride) 50.5 mls @ 100 mls/hr IV Q6H PRN PRN Reason: Nausea/Vomiting Methylprednisolone Sodium Succinate (Solu-Medrol) 80 mg IVPUSH Q8H [facility] Last Admin: 12/03/17 11:26 Dose: Not Given Diltiazem Er 360mg (Cap Own Med) 0 each PO DAILY [facility] Last Admin: 12/03/17 09:52 Dose: Not Given Brovana Neb 15mcg/ (2ml Own Med) 0 each INH BIDRT [facility] Last Admin: 12/02/17 22:35 Dose: 1 each Potassium Chloride (Klor-Con M20) 40 meq PO BID [facility] Stop: 12/05/17 21:01 Last Admin: 12/05/17 22:11 Dose: 40 meq Prednisone (Prednisone) 5 mg PO ASDIRECTED [facility] - Exam Quality Assessment: Reports: Supplemental Oxygen (1L/NC this morning), DVT Prophylaxis General: Reports: Alert, Oriented, Cooperative, No Acute Distress HEENT: Reports: Pupils Equal, EOMI, Mucous Membr. Moist/[place]: Reports: Supple Lungs: Reports: Normal Respiratory Effort, Decreased Breath Sounds (mid to lower lobes; no adventitous sounds today) Cardiovascular: Reports: Regular Rate, Regular Rhythm, No Murmurs GI/Abdominal Exam: Normal Bowel Sounds, Soft, Non-Tender (Male) Exam: Deferred Rectal (Males) Exam: Deferred Back Exam: Reports: Normal Inspection Extremities: Normal Inspection, No Pedal Edema, Normal Capillary Refill Neurological: Reports: No New Focal Deficit Psy/Mental Status: Reports: Alert, Normal Affect, Normal Mood *Q Meaningful Use (DIS) - VTE *Q VTE Criteria *Q: - Stroke *Q Stroke Criteria *Q: - AMI *Q AMI Criteria *Q:
[2017-12-06] MEDS ORDERED: Pneumococcal 13-Valent Conjugate Vaccine 0.5 ML Syringe IM ONE (12:42)
[2017-12-06] MEDS: Azithromycin 500 MG in Sodium Chloride 0.9% 250 ML IV SCH (12:48)
== END 2017-12-06 15:20 | disposition home or self-care (01) | DRG 190 ==
LOC: JD.ED 14:52 → JD.MS 18:11 → OBSVTOIN 23:19 → JD.MS 12-03 22:00
PROVIDERS: ADMIT Internal Medicine Cardiovascular Disease; ATTEND Internal Medicine Cardiovascular Disease
DX: J18.9 Pneumonia, unspecified organism (principal); J44.0 Chronic obstructive pulmonary disease with (acute) lower respiratory infection; J15.7 Pneumonia due to Mycoplasma pneumoniae; J44.1 Chronic obstructive pulmonary disease with (acute) exacerbation; K52.9 Noninfective gastroenteritis and colitis, unspecified; E87.6 Hypokalemia; E11.9 Type 2 diabetes mellitus without complications; J44.9 Chronic obstructive pulmonary disease, unspecified; I10 Essential (primary) hypertension; I73.9 Peripheral vascular disease, unspecified; K21.9 Gastro-esophageal reflux disease without esophagitis; N40.0 Benign prostatic hyperplasia without lower urinary tract symptoms; Z85.118 Personal history of other malignant neoplasm of bronchus and lung; Z87.01 Personal history of pneumonia (recurrent); Z87.891 Personal history of nicotine dependence; Z88.1 Allergy status to other antibiotic agents; Z88.8 Allergy status to other drugs, medicaments and biological substances; Z79.82 Long term (current) use of aspirin; Z79.899 Other long term (current) drug therapy; Z66 Do not resuscitate
CPT/HCPCS: 36415; 71045; 71045-26; 71046; 71046-26; 80048; 80053; 80061; 82962; 83036; 83605; 83735; 85025; 85379; 86140; 86738; 87040; 87081; 87430; 87502; 87503; 87804; 87899; 89055; 90670; 93005; 94640; 94667; 94760; 94761; 96361; 96365; 96375; 97161-GP; 97165-GO; 99285; 99285-25; A9270-GY; G0009; J0456; J1650; J1815-GY; J1956; J2550; J2920; J7040; J7042; J7050

== ENCOUNTER 2019-06-20 17:25 | Emergency (ER) | payer MEDICARE, BC ==
[2019-06-20] MEDS ORDERED: Sodium Chloride 0.9% 10 ML Syringe FLUSH PRN ×2 (18:21→19:22)
--- NOTE | 2019-06-20 18:59 | EDM.PDOC ---
ED HPI GENERAL MEDICAL PROBLEM - General Chief Complaint: Chest Pain Stated Complaint: RIGHT SIDE PAIN Time Seen by Provider: 06/20/19 18:18 Source of Information: Reports: Patient, Family History Limitations: Reports: No Limitations - History of Present Illness INITIAL COMMENTS - FREE TEXT/NARRATIVE: The patient presents with right sided chest pain. This started yesterday. He does not think he hurt it but he does work out a few times per week [place] body [place] with some machines. He has shortness of breath but that is normal for him. He has COPD. He has some congestion but he has some sinus issues. He has no abdominal pain, nausea or vomiting. He has no arm or leg pain. Onset: Gradual Duration: Day(s): Location: Reports: Chest (right side) Quality: Reports: Sharp Severity: Moderate Improves with: Reports: None Worsens with: Reports: None Associated Symptoms: Reports: Chest Pain, Shortness of Breath. Denies: Cough, Fever/Chills, Headaches, Nausea/Vomiting Right Chest Pain Score (Numeric/FACES): 6 - Related Data Allergies Allergy/AdvReac Type Severity Reaction Status Date / Time amoxicillin [From Augmentin] AdvReac Stomach Verified 12/03/17 09:50 Upset cefuroxime AdvReac Stomach Verified 12/03/17 09:50 Upset clavulanic acid AdvReac Stomach Verified 12/03/17 09:50 [From Augmentin] Upset losartan AdvReac Stomach Verified 12/03/17 09:50 Upset metronidazole AdvReac Stomach Verified 12/03/17 09:50 Upset morphine AdvReac Stomach Verified 12/03/17 09:50 Upset tiotropium AdvReac Stomach Verified 12/03/17 09:50 [From Spiriva with Upset HandiHaler] tramadol AdvReac Stomach Verified 12/03/17 09:50 Upset Home Meds: Home Meds Aspirin [Halfprin] 162 mg PO DAILY 12/02/17 [History] Budesonide [Pulmicort] 0.5 mg IH BID 12/02/17 [History] Diltiazem HCl [Taztia Xt] 360 mg PO DAILY 12/02/17 [History] Ipratropium [Atrovent HFA] 1 puff INH QID 12/02/17 [History] LORazepam 0.5 mg PO TID PRN 12/02/17 [History] Lisinopril 20 mg PO DAILY 12/02/17 [History] Metoprolol Succinate 50 mg PO DAILY 12/02/17 [History] Multivitamin [Multivitamins] 1 each PO DAILY 12/02/17 [History] Prednisone [IJD: Prednisone] 5 mg PO ASDIRECTED 12/02/17 [History] Tamsulosin [Flomax] 0.4 mg PO DAILY 12/02/17 [History] hydroCHLOROthiazide [Hydrochlorothiazide] 25 mg PO DAILY 12/02/17 [History] metFORMIN [Glucophage] 500 mg PO DAILY #30 tablet 12/06/17 [Rx] Arformoterol [Brovana] 1 applic INH BID 06/20/19 [History] Multivitamins [Tab-A-Sunny] 1 tab PO DAILY 06/20/19 [History] Past Medical History Cardiovascular History: Reports: Hypertension, PVD Respiratory History: Reports: COPD, Pneumonia, Recurrent Other Respiratory History: nebulizers at home. states he wears oxygen 2 liters nasal cannula sometimes at night at home. 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, Other (See Below) Other Oncologic History: lip - Past Surgical History HEENT Surgical History: Reports: Other (See Below) Other HEENT Surgeries/Procedures: sinuses removed Cardiovascular Surgical History: Reports: None, Other (See Below) Other Cardiovascular Surgeries/Procedures: abdominal anuerysm stents GI Surgical History: Reports: Appendectomy, Cholecystectomy, Colonoscopy, Hernia , Abdominal Oncologic Surgical History: Reports: Other (See Below) Other Oncologic Surgeries/Procedures: left lung tumor removal Dermatological Surgical History: Reports: None Social & Family History - Family History Family Medical History: Noncontributory Cardiac: Reports: Stent - Tobacco Use Smoking Status *Q: Former Smoker Used Tobacco, but Quit: Yes Month/Year Tobacco Last Used: 19 - Caffeine Use Caffeine Use: Reports: Coffee Caffeine Use Comment: 3 cups of coffee a day - Recreational Drug Use Recreational Drug Use: No ED ROS GENERAL - Review of Systems Review Of Systems: See Below Constitutional: Reports: No Symptoms HEENT: Reports: No Symptoms Respiratory: Reports: Shortness of Breath Cardiovascular: Reports: Chest Pain Endocrine: Reports: No Symptoms GI/Abdominal: Reports: No Symptoms : Reports: No Symptoms Musculoskeletal: Reports: No Symptoms ED EXAM, GENERAL - Physical Exam Exam: See Below Exam Limited By: No Limitations General Appearance: Alert, No Apparent Distress Ears: Normal External Exam Nose: Normal Inspection Head: Atraumatic, Normocephalic Neck: Normal Inspection Respiratory/Chest: No Respiratory Distress, Lungs Clear, Normal Breath Sounds Cardiovascular: Regular Rate, Rhythm, No Edema, No Murmur, Other (Pain upon palpation to the right chest) GI/Abdominal: Soft, Non-Tender, No Organomegaly, No Mass Back Exam: Normal Inspection Extremities: Normal Inspection EKG INTERPRETATION EKG Date: 06/20/19 Time: 18:38 Rhythm: NSR Rate (Beats/Min): 83 Murdock: Normal P-Wave: Present QRS: Normal ST-T: Normal QT: Normal EKG Interpretation Comments: Occasional PVCs. Course - Vital Signs Last Recorded V/S: Last Vital Signs Temp 97.8 F 06/20/19 18:22 Pulse 79 06/20/19 18:22 Resp 20 06/20/19 18:22 BP 173/93 H 06/20/19 18:22 Pulse Ox 97 06/20/19 18:22 - Orders/Labs/Meds Orders: Active Orders 24 hr Category Date Time Status Cardiac Monitoring [RC] . DIRECTED Care 06/20/19 18:21 Active EKG Documentation Completion [RC] STAT Care 06/20/19 18:22 Active Peripheral IV Care [RC] . DIRECTED Care 06/20/19 18:22 Active Ang Chest [CT] Stat Exams 06/20/19 19:16 Taken Chest 2V [CR] Stat Exams 06/20/19 18:22 Taken Sodium Chloride 0.9% [Saline Flush] Med 06/20/19 18:21 Active 10 ml FLUSH ASDIRECTED PRN Sodium Chloride 0.9% [Saline Flush] Med 06/20/19 19:22 Active 10 ml FLUSH ASDIRECTED PRN Peripheral IV Insertion Adult [OM.PC] Stat Oth 06/20/19 18:21 Ordered Medication Orders Sodium Chloride (Saline Flush) 10 ml FLUSH ASDIRECTED PRN PRN Reason: Keep Vein Open Sodium Chloride (Saline Flush) 10 ml FLUSH ASDIRECTED PRN PRN Reason: Keep Vein Open Last Admin: 06/20/19 19:41 Dose: 10 ml Labs: Laboratory Tests 06/20/19 06/20/19 06/20/19 Range/Units 18:38 18:38 18:38 WBC 7.92 (4.23-9.07) K/mm3 RBC 4.92 (4.63-6.08) M/mm3 Hgb 14.7 (13.7-17.5) gm/L Hct 43.2 (40.1-51.0) % MCV 87.8 (79.0-92.2) fl MCH 29.9 (25.7-32.2) pg MCHC 34.0 (32.2-35.5) g/dl RDW Std Deviation 40.8 (35.1-43.9) fL Plt Count 252 (163-337) K/mm3 MPV 9.9 (9.4-12.3) fl Neut % (Auto) 61.6 (34.0-67.9) % Lymph % (Auto) 22.9 (21.8-53.1) % Motley % (Auto) 12.9 H (5.3-12.2) % Eos % (Auto) 1.8 (0.8-7.0) Baso % (Auto) 0.5 (0.1-1.2) % Neut # (Auto) 4.89 (1.78-5.38) K/mm3 Lymph # (Auto) 1.81 (1.32-3.57) K/mm3 Motley # (Auto) 1.02 H (0.30-0.82) K/mm3 Eos # (Auto) 0.14 (0.04-0.54) K/mm3 Baso # (Auto) 0.04 (0.01-0.08) K/mm3 D-Dimer, Quantitative 1.40 H (0.19-0.50) mg/L Sodium 141 (136-145) mEq/L Potassium 4.0 (3.5-5.1) mEq/L Chloride 102 (98-107) mEq/L Carbon Dioxide 34 H (21-32) mEq/L Anion Gap 9.0 (5-15) BUN 18 (7-18) mg/dL Creatinine 1.1 (0.7-1.3) mg/dL Est Cr Clr Drug Dosing 49.07 mL/min Estimated GFR (MDRD) > 60 (>60) mL/min BUN/Creatinine Ratio 16.4 (14-18) Glucose 144 H (83-115) mg/dL Calcium 9.7 (8.5-10.1) mg/dL Total Bilirubin 0.6 (0.2-1.0) mg/dL AST 13 L (15-37) U/L ALT 40 (16-63) U/L Alkaline Phosphatase 72 (46-116) U/L Troponin I < 0.017 (0.00-0.056) ng/mL Total Protein 7.8 (6.4-8.2) g/dl Albumin 4.0 (3.4-5.0) g/dl Globulin 3.8 gm/dL Albumin/Globulin Ratio 1.1 (1-2) Meds: Medications Generic Name Dose Route Start Last Admin Trade Name Freq PRN Reason Stop Dose Admin Sodium Chloride 10 ml 06/20/19 18:21 Saline Flush FLUSH ASDIRECTED PRN Keep Vein Open Sodium Chloride 10 ml 06/20/19 19:22 06/20/19 19:41 Saline Flush FLUSH 10 ml ASDIRECTED PRN Administration Keep Vein Open Discontinued Medications Generic Name Dose Route Start Last Admin Trade Name Freq PRN Reason Stop Dose Admin Sodium Chloride 100 mls @ 3 mls/sec 06/20/19 19:30 06/20/19 19:41 Normal Saline IV 3 mls/sec ASDIRECTED HOLLEY Administration Iopamidol 100 ml 06/20/19 19:22 06/20/19 19:41 [id number] (76%) IVPUSH 06/20/19 19:23 100 ml ONETIME ONE Administration - Re-Assessments/Exams Free Text/Narrative Re-Assessment/Exam: 06/20/19 18:59 I ordered an IV saline lock, EKG, CXR and labs. 06/20/19 19:31 His EKG shows a NSR at a rate of 83 with some PVCs. His CXR shows COPD changes but no infiltrated or fractured ribs. His CBC and CMP look good. His troponin was negative. His D-dimer was elevated at 1.4. 06/20/19 20:[address] angio of his chest shows no findings of pulmonary embolism. Linear density adjacent to the major fissure within the left upper lung either due to atelectasis or scarring. Emphysematous change. Prominent coronary artery calcifications. Other findings which are believed to be incidental. Nothing acute is appreciated. I will discharge him home. Departure - Departure Time of Disposition: 20:30 Disposition: Home, Self-Care 01 Condition: Good Clinical Impression: Chest wall pain Referrals: Ryley Fernandes PA-C [Primary Care Provider] - Forms: ED Department Discharge Additional Instructions: Take tylenol or motrin for pain. Take your other medications as prescribed. Let Dr Da Silva at [facility] know we did a CT of your chest today. I have sent the CT to their system. Please return if you are worse. - My Orders Last 24 Hours: My Active Orders 06/20/19 18:21 Cardiac Monitoring [RC] . DIRECTED Sodium Chloride 0.9% [Saline Flush] 10 ml FLUSH ASDIRECTED PRN Peripheral IV Insertion Adult [OM.PC] Stat 06/20/19 18:22 EKG Documentation Completion [RC] STAT Peripheral IV Care [RC] . DIRECTED Chest 2V [CR] Stat 06/20/19 19:16 Ang Chest [CT] Stat 06/20/19 19:22 Sodium Chloride 0.9% [Saline Flush] 10 ml FLUSH ASDIRECTED PRN - Assessment/Plan Last 24 Hours: My Active Orders 06/20/19 18:21 Cardiac Monitoring [RC] . DIRECTED Sodium Chloride 0.9% [Saline Flush] 10 ml FLUSH ASDIRECTED PRN Peripheral IV Insertion Adult [OM.PC] Stat 06/20/19 18:22 EKG Documentation Completion [RC] STAT Peripheral IV Care [RC] . DIRECTED Chest 2V [CR] Stat 06/20/19 19:16 Ang Chest [CT] Stat 06/20/19 19:22 Sodium Chloride 0.9% [Saline Flush] 10 ml FLUSH ASDIRECTED PRN
[2019-06-20] MEDS ORDERED: Iopamidol 755 Mg/ML 100 ML Bottle IVPUSH ONE (19:22)
[2019-06-20] MEDS ORDERED: Sodium Chloride 0.9% 100 ML IV SCH (19:30)
--- NOTE | 2019-06-20 20:27 | CT ---
CT chest Technique: Multiple axial sections through the chest were obtained. Intravenous contrast was utilized. Study has been performed as a pulmonary angiogram protocol. Comparison: No prior chest CT, previous chest x-ray performed earlier on same day. Findings: Pulmonary arteries are well opacified. No filling defects are seen to indicate pulmonary embolism. Aorta shows atherosclerotic change without aneurysm. No mediastinal adenopathy is seen. Prominent coronary artery calcification is seen. No pericardial thickening is seen. Cysts are noted within both kidneys. Surgical clips are noted from prior cholecystectomy. Emphysematous change is noted within both lungs. There is a linear parenchymal density along the major fissure within the left upper lung most likely due to atelectasis or thick area of scarring. No acute parenchymal change is otherwise seen. No pleural effusions or pneumothorax is seen. Bone window settings were reviewed which shows scattered degenerative change within the spine. Impression: 1. No findings of pulmonary embolism. 2. Linear density adjacent to the major fissure within the left upper lung either due to atelectasis or scarring. 3. Emphysematous change. 4. Prominent coronary artery calcification. 5. Other findings which are believed to be incidental. Nothing acute is appreciated. Diagnostic code #2
--- NOTE | 2019-06-21 08:32 | CR ---
Chest: Two views of the chest were obtained. Comparison: Prior chest x-ray of 01/04/19. Lungs are hyperinflated most likely due to emphysematous change. Previous resection of a portion of the left 5th rib is seen as well as 6th rib. No acute parenchymal change is seen. Heart size is normal. Tortuous thoracic aorta is seen. Minimal degenerative change is scattered within the spine. Impression: 1. Emphysematous change. Other findings as noted above. Nothing acute is appreciated. Diagnostic code #2
== END 2019-06-20 20:45 | disposition home or self-care (01) ==
LOC: JD.ED 17:25
DX: R07.89 Other chest pain (principal); I10 Essential (primary) hypertension; Z88.1 Allergy status to other antibiotic agents; Z88.8 Allergy status to other drugs, medicaments and biological substances; Z88.5 Allergy status to narcotic agent; Z79.82 Long term (current) use of aspirin; Z79.899 Other long term (current) drug therapy; Z90.49 Acquired absence of other specified parts of digestive tract; Z87.891 Personal history of nicotine dependence
CPT/HCPCS: 36415; 71046; 71275; 80053; 84484; 85025; 85379; 93005; 99285; J7030; Q9967

== ENCOUNTER 2019-07-30 07:56 | Emergency (ER) | payer MEDICARE, BC ==
[2019-07-30] MEDS ORDERED: Metoclopramide 10 MG/2 ML SDV IVPUSH ONE (08:21)
[2019-07-30] MEDS ORDERED: HYDROmorphone 0.5 MG/0.5 ML Syringe IVPUSH ONE (08:21)
--- NOTE | 2019-07-30 08:25 | EDM.PDOC ---
ED HPI GENERAL MEDICAL PROBLEM - General Chief Complaint: Abdominal Pain Stated Complaint: STOMACH PAIN Time Seen by Provider: 07/30/19 08:20 Source of Information: Reports: Patient, Family History Limitations: Reports: No Limitations - History of Present Illness INITIAL COMMENTS - FREE TEXT/NARRATIVE: 83-year-old male presents to the ED with diffuse left lower quadrant and suprapubic abdominal pain radiating up towards the left flank. Came on about 0300 hrs. this morning. She states she's able to pass only a very small quantity of urine. He's been having problems with constipation as of late bowels did not work yesterday. Usually they have been working daily with daily laxative use. No associated nausea or vomiting. No past history of renal colic. Urinary stream is slow. Usually nocturia 3. Onset: Today Onset Date: 07/30/19 Onset Time: 03:00 Duration: Hour(s):, Constant, Getting Worse, Other (Radiates now from the left lower quadrant up towards the left flank.) Location: Reports: Abdomen (Suprapubic and left lower quadrant of the abdomen rating up slightly towards the left flank.) Quality: Reports: Ache, Other Severity: Severe (Constant pain with occasional mild colicky component) Improves with: Reports: None ( tendon at 10) Worsens with: Reports: None Context: Denies: Activity, Exercise, Lifting, Sick Contact, Trauma, Other Associated Symptoms: Reports: Loss of Appetite, Malaise. Denies: Confusion, Chest Pain, Cough, cough w sputum, Fever/Chills, Headaches, Rash, Seizure, Shortness of Breath, Syncope Treatments FINISH CLEANER: Reports: Other (see below) Left Lower Abdomen Pain Score (Numeric/FACES): 9 - Related Data Allergies Allergy/AdvReac Type Severity Reaction Status Date / Time amoxicillin [From Augmentin] AdvReac Stomach Verified 07/30/19 08:13 Upset cefuroxime AdvReac Stomach Verified 07/30/19 08:13 Upset clavulanic acid AdvReac Stomach Verified 07/30/19 08:13 [From Augmentin] Upset losartan AdvReac Stomach Verified 07/30/19 08:13 Upset metronidazole AdvReac Stomach Verified 07/30/19 08:13 Upset morphine AdvReac Stomach Verified 07/30/19 08:13 Upset tiotropium AdvReac Stomach Verified 07/30/19 08:13 [From Spiriva with Upset HandiHaler] tramadol AdvReac Stomach Verified 07/30/19 08:13 Upset Home Meds: Home Meds Aspirin [Halfprin] 162 mg PO BID 12/02/17 [History] Budesonide [Pulmicort] 0.5 mg IH BID 12/02/17 [History] Diltiazem HCl [Taztia Xt] 360 mg PO DAILY 12/02/17 [History] Ipratropium [Atrovent HFA] 1 puff INH QID 12/02/17 [History] LORazepam 0.5 mg PO TID PRN 12/02/17 [History] Lisinopril 20 mg PO DAILY 12/02/17 [History] Metoprolol Succinate 50 mg PO DAILY 12/02/17 [History] Multivitamin [Multivitamins] 1 each PO DAILY 12/02/17 [History] Prednisone [IJD: Prednisone] 5 mg PO ASDIRECTED 12/02/17 [History] Tamsulosin [Flomax] 0.4 mg PO DAILY 12/02/17 [History] hydroCHLOROthiazide [Hydrochlorothiazide] 25 mg PO DAILY 12/02/17 [History] metFORMIN [Glucophage] 500 mg PO DAILY #30 tablet 12/06/17 [Rx] Arformoterol [Brovana] 2 ml INH BID 06/20/19 [History] Multivitamins [Tab-A-Sunny] 1 tab PO DAILY 06/20/19 [History] Past Medical History Cardiovascular History: Reports: Hypertension, PVD Respiratory History: Reports: COPD, Pneumonia, Recurrent Other Respiratory History: nebulizers at home. states he wears oxygen 2 liters nasal cannula sometimes at night at home. 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, Other (See Below) Other Oncologic History: lip - Past Surgical History HEENT Surgical History: Reports: Other (See Below) Other HEENT Surgeries/Procedures: sinuses removed Cardiovascular Surgical History: Reports: None, Other (See Below) Other Cardiovascular Surgeries/Procedures: abdominal anuerysm stents GI Surgical History: Reports: Appendectomy, Cholecystectomy, Colonoscopy, Hernia , Abdominal, Hernia, Inguinal (Some evidence of recurrence of inguinal hernia with bowel partially in a right inguinal hernia on CT done July 30.), Hernia Repair/Other Oncologic Surgical History: Reports: Other (See Below) Other Oncologic Surgeries/Procedures: left lung tumor removal Dermatological Surgical History: Reports: None Social & Family History - Family History Family Medical History: Noncontributory Cardiac: Reports: Stent - Caffeine Use Caffeine Use: Reports: Coffee Caffeine Use Comment: 3 cups of coffee a day - Living Situation & Occupation Living situation: Reports: Occupation: Retired ED ROS GENERAL - Review of Systems Review Of Systems: See Below Constitutional: Reports: Malaise, Fatigue. Denies: Fever, Chills HEENT: Reports: Glasses Respiratory: Reports: Shortness of Breath. Denies: Wheezing, Pleuritic Chest Pain, Cough, Sputum Cardiovascular: Reports: Blood Pressure Problem, Dyspnea on Exertion ( Chronically). Denies: Chest Pain, Claudication, Edema, Lightheadedness (Mildly hypertensive.), Orthopnea Endocrine: Reports: Fatigue GI/Abdominal: Reports: Abdominal Pain (Abdominal pain see history of present illness.), Constipation : Reports: Frequency, Other (Nocturia usually 3.) Musculoskeletal: Reports: Back Pain Skin: Reports: No Symptoms Neurological: Reports: No Symptoms Psychiatric: Reports: No Symptoms Hematologic/Lymphatic: Reports: No Symptoms Immunologic: Reports: No Symptoms ED EXAM, GI/ABD - Physical Exam Exam: See Below Exam Limited By: No Limitations General Appearance: Alert, WD/WN, Mild Distress, Moderate Distress, Other (Very stoic fellow. Vital signs reveal a temperature of 36.1. Pulse is 66 and sinus respiratory is 20 sats are 94% on room air. BP elevated 1 5365.) Eyes: Bilateral: Normal Appearance Throat/Mouth: Normal Inspection, Normal Lips, Normal Teeth, Normal Gums, Normal Oropharynx Respiratory/Chest: Lungs Clear, Normal Breath Sounds, No Accessory Muscle Use, Chest Non-Tender, Respiratory Distress (Mild tachypnea at rest.) Cardiovascular: Regular Rate, Rhythm, No Edema, No Gallop, No Murmur, No Rub GI/Abdominal Exam: No Organomegaly, Distended (Distended lower abdomen with dullness to percussion up to the umbilicus. Tenderness on palpation of the infraumbilical abdomen. Suspect urinary retention.), Guarding, Abnormal Bowel Sounds (Bowel sounds are fairly quiet sent in all 4 quadrants.). No: Rigid, Rebound (Suprapubically.), Tender (Male) Exam: No Hernia Back Exam: Decreased Range of Motion Extremities: Normal Inspection, Normal Range of Motion, Non-Tender Neurological: Alert, Oriented, CN II-XII Intact, Normal Cognition, Normal Gait Psychiatric: Anxious, Other Skin Exam: Warm (In a good deal of pain.), Dry, Intact, Normal Color, No Rash Course - Vital Signs Last Recorded V/S: Last Vital Signs Temp 36.1 C 07/30/19 08:09 Pulse 66 07/30/19 08:09 Resp 20 07/30/19 08:09 BP 153/65 H 07/30/19 08:09 Pulse Ox 94 L 07/30/19 08:09 - Orders/Labs/Meds Orders: Active Orders 24 hr Category Date Time Status Bladder Scan [RC] ASDIRECTED Care 07/30/19 08:21 Active Stark Catheter Insertion [Insert Urinary Catheter] [OM. Care 07/30/19 09:30 Ordered PC] Q24H Urinary Catheter Assessment [RC] ASDIRECTED Care 07/30/19 09:27 Active URIC ACID [CHEM] Stat Lab 07/30/19 10:58 Ordered Sodium Chloride 0.9% [Normal Saline] 1,000 ml Med 07/30/19 08:30 Active IV ASDIRECTED Medication Orders Sodium Chloride (Normal Saline) 1,000 mls @ 100 mls/hr IV ASDIRECTED HOLLEY Last Admin: 07/30/19 08:34 Dose: 100 mls/hr Labs: Laboratory Tests 07/30/19 07/30/19 07/30/19 Range/Units 08:25 08:25 08:25 WBC 8.51 (4.23-9.07) K/mm3 RBC 4.64 (4.63-6.08) M/mm3 Hgb 14.4 (13.7-17.5) gm/dl Hct 40.4 (40.1-51.0) % MCV 87.1 (79.0-92.2) fl MCH 31.0 (25.7-32.2) pg MCHC 35.6 H (32.2-35.5) g/dl RDW Std Deviation 40.2 (35.1-43.9) fL Plt Count 226 (163-337) K/mm3 MPV 10.4 (9.4-12.3) fl Neut % (Auto) 78.8 H (34.0-67.9) % Lymph % (Auto) 11.3 L (21.8-53.1) % [place] % (Auto) 8.6 (5.3-12.2) % Eos % (Auto) 0.9 (0.8-7.0) Baso % (Auto) 0.4 (0.1-1.2) % Neut # (Auto) 6.71 H (1.78-5.38) K/mm3 Lymph # (Auto) 0.96 L (1.32-3.57) K/mm3 [place] # (Auto) 0.73 (0.30-0.82) K/mm3 Eos # (Auto) 0.08 (0.04-0.54) K/mm3 Baso # (Auto) 0.03 (0.01-0.08) K/mm3 Sodium 136 (136-145) mEq/L Potassium 4.2 (3.5-5.1) mEq/L Chloride 98 (98-107) mEq/L Carbon Dioxide 28 (21-32) mEq/L Anion Gap 14.2 (5-15) BUN 17 (7-18) mg/dL Creatinine 1.3 (0.7-1.3) mg/dL Est Cr Clr Drug Dosing 41.79 mL/min Estimated GFR (MDRD) 53 (>60) mL/min BUN/Creatinine Ratio 13.1 L (14-18) Glucose 276 H (83-115) mg/dL Calcium 8.8 (8.5-10.1) mg/dL Total Bilirubin 1.0 (0.2-1.0) mg/dL AST 13 L (15-37) U/L ALT 34 (16-63) U/L Alkaline Phosphatase 60 (46-116) U/L C-Reactive Protein < 0.2 (<1.0) mg/dL Total Protein 7.0 (6.4-8.2) g/dl Albumin 3.5 (3.4-5.0) g/dl Globulin 3.5 gm/dL Albumin/Globulin Ratio 1.0 (1-2) PSA Screen 1.1 (0.0-4.0) ng/mL Urine Color (Yellow) Urine Appearance (Clear) Urine pH (5.0-8.0) Ur Specific [place] (1.005-1.030) Urine Protein (Negative) Urine Glucose (UA) (Negative) Urine Ketones (Negative) Urine Occult Blood (Negative) Urine Nitrite (Negative) Urine Bilirubin (Negative) Urine Urobilinogen (0.2-1.0) Ur Leukocyte Esterase (Negative) Urine RBC (0-5) /hpf Urine WBC (0-5) /hpf Ur Squamous Epith Cells (0-5) /hpf Urine Bacteria (FEW) /hpf Urine Mucus (FEW) /hpf 07/30/19 Range/Units 09:40 WBC (4.23-9.07) K/mm3 RBC (4.63-6.08) M/mm3 Hgb (13.7-17.5) gm/dl Hct (40.1-51.0) % MCV (79.0-92.2) fl MCH (25.7-32.2) pg MCHC (32.2-35.5) g/dl RDW Std Deviation (35.1-43.9) fL Plt Count (163-337) K/mm3 MPV (9.4-12.3) fl Neut % (Auto) (34.0-67.9) % Lymph % (Auto) (21.8-53.1) % [place] % (Auto) (5.3-12.2) % Eos % (Auto) (0.8-7.0) Baso % (Auto) (0.1-1.2) % Neut # (Auto) (1.78-5.38) K/mm3 Lymph # (Auto) (1.32-3.57) K/mm3 [place] # (Auto) (0.30-0.82) K/mm3 Eos # (Auto) (0.04-0.54) K/mm3 Baso # (Auto) (0.01-0.08) K/mm3 Sodium (136-145) mEq/L Potassium (3.5-5.1) mEq/L Chloride (98-107) mEq/L Carbon Dioxide (21-32) mEq/L Anion Gap (5-15) BUN (7-18) mg/dL Creatinine (0.7-1.3) mg/dL Est Cr Clr Drug Dosing mL/min Estimated GFR (MDRD) (>60) mL/min BUN/Creatinine Ratio (14-18) Glucose (83-115) mg/dL Calcium (8.5-10.1) mg/dL Total Bilirubin (0.2-1.0) mg/dL AST (15-37) U/L ALT (16-63) U/L Alkaline Phosphatase (46-116) U/L C-Reactive Protein (<1.0) mg/dL Total Protein (6.4-8.2) g/dl Albumin (3.4-5.0) g/dl Globulin gm/dL Albumin/Globulin Ratio (1-2) PSA Screen (0.0-4.0) ng/mL Urine Color Yellow (Yellow) Urine Appearance Clear (Clear) Urine pH 6.5 (5.0-8.0) Ur Specific [place] 1.025 (1.005-1.030) Urine Protein Negative (Negative) Urine Glucose (UA) Trace H (Negative) Urine Ketones Negative (Negative) Urine Occult Blood 2+ H (Negative) Urine Nitrite Negative (Negative) Urine Bilirubin Negative (Negative) Urine Urobilinogen 0.2 (0.2-1.0) Ur Leukocyte Esterase Negative (Negative) Urine RBC 30-40 H (0-5) /hpf Urine WBC 0-5 (0-5) /hpf Ur Squamous Epith Cells 0-5 (0-5) /hpf Urine Bacteria Few (FEW) /hpf Urine Mucus Few (FEW) /hpf Meds: Medications Generic Name Dose Route Start Last Admin Trade Name Zack PRN Reason Stop Dose Admin Sodium Chloride 1,000 mls @ 100 mls/hr 07/30/19 08:30 07/30/19 08:34 Normal Saline IV 100 mls/hr ASDIRECTED HOLLEY Administration Discontinued Medications Generic Name Dose Route Start Last Admin Trade Name Freq PRN Reason Stop Dose Admin Hydromorphone HCl 0.5 mg 07/30/19 08:21 07/30/19 08:33 Dilaudid IVPUSH 07/30/19 08:22 0.5 mg ONETIME ONE Administration Lidocaine HCl 10 ml 07/30/19 09:26 Xylocaine 2% Jelly MUCMEM 07/30/19 09:27 ONETIME ONE Metoclopramide HCl 7.5 mg 07/30/19 08:21 07/30/19 08:33 Reglan IVPUSH 07/30/19 08:22 7.5 mg ONETIME ONE Administration - Radiology Interpretation Free Text/Narrative:: 83-year-old male presents to the ED with diffuse suprapubic left lower quadrant abdominal pain rating up and towards his left flank. States it's been painful since 0300 hrs. this morning and getting worse. Associated mild nausea. No vomiting. No past history of kidney stones. Pain is constant and getting worse. Does radiate into his lower back. He states his only been able to void a very small quantity of urine. On examination his abdomen is distended firm to palpation and dull to percussion infraumbilical downwards. Strongly suspect acute urinary retention. Chest is clear to stage percussion. Plan IV normal saline at 100 mils per hour. Given Dilaudid 0.5 mg IV for pain relief with Reglan 7.5 mg IV. Bladder scan to be done post void.. KUB ordered. - Re-Assessments/Exams Free Text/Narrative Re-Assessment/Exam: 07/30/19 08:36 prior scan only relate reveals 636 mils of urine in the bladder. Therefore he may well have a kidney stone. We'll have CT of the abdomen performed per renal protocol. 07/30/19 09:27 CT of the abdomen reveals visualized portion of the lung white to be clear. Does have a small hiatal hernia. Liver appears homogeneous. Gallbladder is absent. Pancreas is mildly atrophic. Spleen appears normal. The bowel appears to be within normal limits showing several diverticuli without any active diverticulitis. Mild amount of stool present in the transverse colon and right hemicolon. Bladder is distended. Left kidney has a hydroureter which extends all the way down to the urinary bladder without any sign of a stone or obstruction. Are 2 large cysts within each pole of the left kidney. There is a 1.3 cm cyst within the left kidney that is suggestive of a small hemorrhagic cyst. and one cyst within the superior pole of the right kidney. No stones identified in either kidney. The abdominal aorta shows extensive atherosclerotic calcification. Below the renal arteries there is a an abdominal aortic aneurysm measuring 5.2 cm in its greatest diameter without any signs of leakage. There is evidence of an endovascular graft placed in this area. Sigmoid colon shows several diverticuli without any acute diverticulitis. Appendix is not visualized with any degree of certainty. There is a partial inguinal hernia on the right side with descent of a portion of small bowel into the hernia. No bowel dilatation is seen to suggest incarceration. No free fluid or inflammatory changes appreciated in the pelvis. Of note there are several calcifications within the dependent portion of the urinary bladder presumably due to multiple bladder calculi. This finding is an interval change from previous studies. Plan will have a Stark catheter placed with Urojet to facilitate procedure. 07/30/19 09:30 Labs reveal a normal white count at 8.51. Differential is 70.8% neutrophils. Hemoglobin is 14.4 with hematocrit of 40.4. Platelet count 226, 000. Sodium 136 with a potassium of 4.2. Chloride 98 with a bicarbonate of 28. Anion gap is 14.2. BUN is 17 with a creatinine of 1.3. GFR is 53. Glucose is elevated at 276. Calcium is 8.8. Bilirubin is 1.0. AST is 13. ALT is 34. Alk phosphatase is 60. C-reactive protein less than 0.2. Total protein 7.0 with an albumin fraction of 3.5. TSH screen 1.1. Patient was able to void 200 mils of urine. Bladder scan repeated after voiding and he still has 236 mils of urine in his bladder. He is not too keen on having a catheter placed. Review his med list shows that he is on tamsulosin 0.4 mg daily. Will wait and see if his urine is infected or not. 07/30/19 10:05 Patient is resting toxoid. He does not have any pain at present. 07/30/19 10:58 Urinalysis shows trace of glucose on the dip and 2+. Blood. Leukocyte Estrace was negative and 30-40 RBCs per high-power field reported. This is strongly suggestive of a kidney stone. Therefore consideration of a possible uric acid stone that is not showing up on CT as the left ureter is dilated down to the urinary bladder. 07/30/19 11:17 advised the patient that he will require urology consultation. We'll see if we can get him up on time for later this week in [place] in [place]. In the meantime a Stark catheter will be placed as otherwise he is going to go back into retention. He is worried about having spasms as he had quite bad pain with Stark catheter in the past. I will write a prescription for 6 on B suppositories eye opening and belladonna for relief of bladder spasms if needed. Departure - Departure Time of Disposition: 11:20 Disposition: Home, Self-Care 01 Condition: Fair Clinical Impression: Acute urinary retention, Bladder calculi - Discharge Information *PRESCRIPTION DRUG MONITORING PROGRAM REVIEWED*: Not Applicable *COPY OF PRESCRIPTION DRUG MONITORING REPORT IN PATIENT CLEMENTE: Not Applicable Instructions: Acute Urinary Retention, Male Referrals: Ryley Fernandes PA-C [Primary Care Provider] - Forms: ED Department Discharge Additional Instructions: Evaluation the emergency room this morning in regards to development of severe suprapubic left lower quadrant abdominal pain that started to radiate up towards the left flank. Examination suggested a very full urinary bladder with a palpable up to just below the umbilicus. However the initial bladder scan reported by the nursing staff was [address] scan of the abdomen was therefore performed per renal protocol and no kidney stones were identified. It did show that the left kidney is minimally enlarged and the left ureter is dilated down to the urinary bladder. However no obstructing stone was identified within the bladder. Several bladder stones are evident in the urinary bladder. You were able to void 200 mils of urine as on CT had revealed there was probably 400 mils of urine in your bladder. Bladder scan done after you voided revealed 236 mils still within the bladder. This is called urinary retention. Therefore the cause of your pain wasn't overdistended bladder. Therefore a Stark catheter was placed in the ED to prevent the bladder from overfilling until you can follow- up with urology services. You are already on tamsulosin but after looking into the bladder they will may be able to make a decision whether he can be treated with further medications or require surgery to open up the passageway from prostate gland to the bladder. I have written a prescription for Ultram and belladonna suppositories that she can take one per rectum every 6 hours if needed for bladder spasms or pain. The only place she will build to fill this prescription is [facility] pharmacy at the [facility]. - My Orders Last 24 Hours: My Active Orders 07/30/19 08:21 Bladder Scan [RC] ASDIRECTED 07/30/19 08:30 Sodium Chloride 0.9% [Normal Saline] 1,000 ml IV ASDIRECTED 07/30/19 09:27 Urinary Catheter Assessment [RC] ASDIRECTED 07/30/19 09:30 Stark Catheter Insertion [Insert Urinary Catheter] [OM.PC] Q24H 07/30/19 10:58 URIC ACID [CHEM] Stat - Assessment/Plan Last 24 Hours: My Active Orders 07/30/19 08:21 Bladder Scan [RC] ASDIRECTED 07/30/19 08:30 Sodium Chloride 0.9% [Normal Saline] 1,000 ml IV ASDIRECTED 07/30/19 09:27 Urinary Catheter Assessment [RC] ASDIRECTED 07/30/19 09:30 Stark Catheter Insertion [Insert Urinary Catheter] [OM.PC] Q24H 07/30/19 10:58 URIC ACID [CHEM] Stat
[2019-07-30] MEDS ORDERED: Sodium Chloride 0.9% 1,000 ML IV SCH (08:30)
--- NOTE | 2019-07-30 09:37 | CT ---
CT abdomen and pelvis Technique: Multiple axial sections were obtained from above the dome of the diaphragm inferiorly through the pubic symphysis. Intravenous and oral contrast was not utilized. Comparison: Previous CT abdomen and pelvis study of 02/07/13. Findings: Visualized lung bases show nothing acute. Noncontrast appearance of the liver and spleen appear within normal limits. Small hiatal hernia is noted. Adrenal glands show no nodule. Cysts are noted within both kidneys. There is a small hyperdense lesion within the left kidney measuring 1.3 cm in size. This finding is most likely due to small hemorrhagic cyst. No ureteral dilatation is seen. No ureteral calculi are seen. Multiple calcifications are seen within the dependent portion of the bladder presumably due to multiple bladder calculi. This finding is an interval change from previous study. Surgical clips are seen from prior cholecystectomy. Endovascular stent is seen within an abdominal aortic aneurysm. This appears stable from previous exam. Pancreas shows no discrete abnormality. No retroperitoneal adenopathy or mesenteric abnormalities are seen. No pelvic mass or adenopathy is seen. Diverticuli are noted within the sigmoid colon without evidence of diverticulitis. Appendix not visualized with certainty. Partial inguinal hernia is noted with descent of a portion of small bowel into the hernia. No bowel dilatation is seen. No free fluid or inflammatory change is seen. Bone window settings were reviewed which show nothing acute. Mild scattered degenerative change is noted within the spine. Impression: 1. Multiple renal cysts. Small hyperdense lesion within the left kidney most likely due to small hemorrhagic cyst. 2. Stable endovascular graft within an abdominal aorta aneurysm. 3. Multiple bladder calculi which have occurred in the interim from prior study. 4. No ureteral dilatation or ureteral stone is seen. 5. Other findings as noted above. Nothing acute is appreciated on noncontrast CT study of the abdomen and pelvis. Diagnostic code #3
[2019-07-30] MEDS: Lidocaine 2% Jelly 10 ML Urojet MUCMEM ONE ×2 (09:42→11:45)
== END 2019-07-30 12:20 | disposition home or self-care (01) ==
LOC: JD.ED 07:56
DX: N21.0 Calculus in bladder (principal); R33.9 Retention of urine, unspecified; I10 Essential (primary) hypertension; J44.9 Chronic obstructive pulmonary disease, unspecified; N40.0 Benign prostatic hyperplasia without lower urinary tract symptoms; Z88.0 Allergy status to penicillin; Z88.1 Allergy status to other antibiotic agents; Z88.8 Allergy status to other drugs, medicaments and biological substances; Z79.82 Long term (current) use of aspirin; Z79.899 Other long term (current) drug therapy; Z79.51 Long term (current) use of inhaled steroids
CPT/HCPCS: 36415; 51702; 51798; 74176; 80053; 81001; 84550; 85025; 86140; 96361; 96374; 96375; 99284; G0103; J1170; J2765; J7040

== ENCOUNTER 2019-11-28 15:51 | Emergency (ER) | payer MEDICARE, BC ==
[2019-11-28] MEDS ORDERED: Albuterol 0.083% 2.5 MG/3 ML Neb Soln NEB ONE (16:47)
--- NOTE | 2019-11-28 16:52 | EDM.PDOC ---
<Viry Quinones - Last Filed: 11/28/19 16:45> ED HPI GENERAL MEDICAL PROBLEM - General Chief Complaint: Cardiovascular Problem Stated Complaint: DIFFICULTY BREATHING Time Seen by Provider: 11/28/19 16:21 Source of Information: Reports: Patient, Family (Daughter) History Limitations: Reports: No Limitations - History of Present Illness INITIAL COMMENTS - FREE TEXT/NARRATIVE: Patient is a pleasant 84-year-old gentleman with a myriad of chronic conditions including COPD, type 2 diabetes, hypertension, and peripheral arterial disease. He presents to the ED today with complaints of shortness of breath that started last evening. He states the shortness of breath developed after a two- hour coughing episode. He reports his cough is occasionally productive with a bluish-green sputum. Today he notes that he feels short of breath, especially with exertion, fatigued, and weak. He reports that he has had to use his Albuterol inhaler twice in the past week for shortness of breath. He tells me that he has home oxygen, but does not use it during the day and only occasionally uses it at night. He states he completes routine nebulizer treatments twice per day, the last one being done this morning. He denies chest pain, fever, and chills. Onset: Gradual Associated Symptoms: Reports: Cough, Shortness of Breath Treatments PHYSIOGNOMIST: Reports: Oxygen, Other (see below) Other Treatments PHYSIOGNOMIST: oxygen - Related Data Allergies Allergy/AdvReac Type Severity Reaction Status Date / Time amoxicillin [From Augmentin] AdvReac Stomach Verified 07/31/19 11:29 Upset cefuroxime AdvReac Stomach Verified 07/31/19 11:29 Upset clavulanic acid AdvReac Stomach Verified 07/31/19 11:29 [From Augmentin] Upset hydrochlorothiazide AdvReac Other Verified 08/02/19 07:59 losartan AdvReac Stomach Verified 07/31/19 11:29 Upset metronidazole AdvReac Stomach Verified 07/31/19 11:29 Upset morphine AdvReac Stomach Verified 07/31/19 11:29 Upset tiotropium AdvReac Stomach Verified 07/31/19 11:29 [From Spiriva with Upset HandiHaler] tramadol AdvReac Stomach Verified 07/31/19 11:29 Upset Home Meds: Home Meds Aspirin [Halfprin] 81 mg PO BID 12/02/17 [History] Budesonide [Pulmicort] 0.5 mg IH BID 12/02/17 [History] Diltiazem HCl [Taztia Xt] 360 mg PO QPM 12/02/17 [History] Ipratropium [Atrovent HFA] 1 puff INH QID PRN 12/02/17 [History] LORazepam 0.5 mg PO TID PRN 12/02/17 [History] Lisinopril 20 mg PO DAILY 12/02/17 [History] Metoprolol Succinate 50 mg PO DAILY 12/02/17 [History] Prednisone [IJD: Prednisone] 5 mg PO ASDIRECTED 12/02/17 [History] hydroCHLOROthiazide [Hydrochlorothiazide] 25 mg PO DAILY 12/02/17 [History] metFORMIN [Glucophage] 500 mg PO DAILY #30 tablet 12/06/17 [Rx] Arformoterol [Brovana] 2 ml INH BID 06/20/19 [History] Albuterol Sulfate [Proair Hfa] 90 mcg IH DAILY PRN 07/31/19 [History] Non-Formulary Medication [NF Drug] 1 each PO DAILY 07/31/19 [History] Doxycycline [Vibramycin] 100 mg PO BID #20 tab 11/28/19 [Rx] Past Medical History Cardiovascular History: Reports: Hypertension, PVD Respiratory History: Reports: COPD, Pneumonia, Recurrent Other Respiratory History: nebulizers at home. states he wears oxygen 2 liters nasal cannula sometimes at night at home. Gastrointestinal History: Reports: Bowel Obstruction, GERD Genitourinary History: Reports: BPH Musculoskeletal History: Reports: Arthritis Endocrine/Metabolic History: Reports: Diabetes, Type II Oncologic (Cancer) History: Reports: Lung, Other (See Below) Other Oncologic History: lip - Past Surgical History HEENT Surgical History: Reports: Other (See Below) Other HEENT Surgeries/Procedures: sinuses removed Cardiovascular Surgical History: Reports: Other (See Below) Other Cardiovascular Surgeries/Procedures: abdominal anuerysm stents GI Surgical History: Reports: Appendectomy, Cholecystectomy, Colonoscopy, Hernia , Abdominal, Hernia, Inguinal, Hernia Repair/Other, Small Bowel Oncologic Surgical History: Reports: Other (See Below) Other Oncologic Surgeries/Procedures: left lung tumor removal Dermatological Surgical History: Reports: None Social & Family History - Family History Family Medical History: Noncontributory Cardiac: Reports: Stent - Tobacco Use Smoking Status *Q: Former Smoker Used Tobacco, but Quit: Yes Month/Year Tobacco Last Used: 18 - Caffeine Use Caffeine Use: Reports: Coffee Other Caffeine Use: 2 cups/day Caffeine Use Comment: 3 cups of coffee a day - Recreational Drug Use Recreational Drug Use: No - Living Situation & Occupation Living situation: Reports: Occupation: Retired ED ROS GENERAL - Review of Systems Review Of Systems: See Below Constitutional: Reports: Weakness, Fatigue. Denies: Fever, Chills HEENT: Denies: Rhinitis, Throat Pain Respiratory: Reports: Shortness of Breath, Wheezing (occasional), Cough ( productive). Denies: Hemoptysis Cardiovascular: Reports: No Symptoms. Denies: Chest Pain, Edema, Lightheadedness, Syncope GI/Abdominal: Reports: No Symptoms. Denies: Abdominal Pain, Diarrhea, Nausea, Vomiting Musculoskeletal: Reports: No Symptoms. Denies: Neck Pain, Muscle Pain Skin: Reports: No Symptoms. Denies: Rash Neurological: Reports: No Symptoms. Denies: Dizziness, Headache, Numbness, Syncope, Tingling Psychiatric: Reports: No Symptoms Hematologic/Lymphatic: Reports: No Symptoms ED EXAM, GENERAL - Physical Exam Exam: See Below Exam Limited By: No Limitations General Appearance: Alert, WD/WN, No Apparent Distress Nose: Normal Inspection, Normal Mucosa, Clear Rhinorrhea Throat/Mouth: Normal Inspection, Normal Oropharynx Head: Atraumatic, Normocephalic Neck: Normal Inspection, Supple, Non-Tender, Full Range of Motion Respiratory/Chest: No Accessory Muscle Use, Chest Non-Tender, Decreased Breath Sounds. No: Rales, Rhonchi, Wheezing Cardiovascular: Regular Rate, Rhythm, No Edema, No Murmur GI/Abdominal: Normal Bowel Sounds, Soft, Non-Tender, No Organomegaly Back Exam: Normal Inspection, Full Range of Motion Extremities: Normal Inspection, Normal Range of Motion, Non-Tender, No Pedal Edema, Normal Capillary Refill Neurological: Alert, Oriented, Normal Cognition, No Motor/Sensory Deficits Psychiatric: Normal Affect, Normal Mood Skin Exam: Warm, Dry, Intact, No Rash Lymphatic: No Adenopathy Course - Vital Signs Last Recorded V/S: Last Vital Signs Temp 98.9 F 11/28/19 16:02 Pulse 79 11/28/19 19:30 Resp 18 11/28/19 19:30 BP 137/78 11/28/19 19:30 Pulse Ox 92 L 11/28/19 19:30 - Orders/Labs/Meds Labs: Laboratory Tests 11/28/19 11/28/19 11/28/19 Range/Units 17:01 17:01 17:01 WBC 10.78 H (4.23-9.07) K/mm3 RBC 4.42 L (4.63-6.08) M/mm3 Hgb 13.3 L (13.7-17.5) gm/dl Hct 40.1 (40.1-51.0) % MCV 90.7 (79.0-92.2) fl MCH 30.1 (25.7-32.2) pg MCHC 33.2 (32.2-35.5) g/dl RDW Std Deviation 42.1 (35.1-43.9) fL Plt Count 219 D (163-337) K/mm3 MPV 10.2 (9.4-12.3) fl Neut % (Auto) 76.3 H (34.0-67.9) % Lymph % (Auto) 11.0 L (21.8-53.1) % [place] % (Auto) 10.9 (5.3-12.2) % Eos % (Auto) 1.3 (0.8-7.0) Baso % (Auto) 0.2 (0.1-1.2) % Neut # (Auto) 8.22 H (1.78-5.38) K/mm3 Lymph # (Auto) 1.19 L (1.32-3.57) K/mm3 [place] # (Auto) 1.18 H (0.30-0.82) K/mm3 Eos # (Auto) 0.14 (0.04-0.54) K/mm3 Baso # (Auto) 0.02 (0.01-0.08) K/mm3 Sodium 137 (136-145) mEq/L Potassium 3.9 (3.5-5.1) mEq/L Chloride 101 (98-107) mEq/L Carbon Dioxide 27 (21-32) mEq/L Anion Gap 12.9 (5-15) BUN 15 (7-18) mg/dL Creatinine 1.2 (0.7-1.3) mg/dL Est Cr Clr Drug Dosing 44.76 mL/min Estimated GFR (MDRD) 58 (>60) mL/min BUN/Creatinine Ratio 12.5 L (14-18) Glucose 207 H (83-115) mg/dL Calcium 9.0 (8.5-10.1) mg/dL Total Bilirubin 1.0 (0.2-1.0) mg/dL AST 11 L (15-37) U/L ALT 25 (16-63) U/L Alkaline Phosphatase 67 (46-116) U/L C-Reactive Protein 5.5 H* (<1.0) mg/dL NT-Pro-B Natriuret Pep (0-450) pg/mL Total Protein 7.0 (6.4-8.2) g/dl Albumin 3.4 (3.4-5.0) g/dl Globulin 3.6 gm/dL Albumin/Globulin Ratio 0.9 L (1-2) 11/28/19 Range/Units 17:01 WBC (4.23-9.07) K/mm3 RBC (4.63-6.08) M/mm3 Hgb (13.7-17.5) gm/dl Hct (40.1-51.0) % MCV (79.0-92.2) fl MCH (25.7-32.2) pg MCHC (32.2-35.5) g/dl RDW Std Deviation (35.1-43.9) fL Plt Count (163-337) K/mm3 MPV (9.4-12.3) fl Neut % (Auto) (34.0-67.9) % Lymph % (Auto) (21.8-53.1) % [place] % (Auto) (5.3-12.2) % Eos % (Auto) (0.8-7.0) Baso % (Auto) (0.1-1.2) % Neut # (Auto) (1.78-5.38) K/mm3 Lymph # (Auto) (1.32-3.57) K/mm3 Hudspeth # (Auto) (0.30-0.82) K/mm3 Eos # (Auto) (0.04-0.54) K/mm3 Baso # (Auto) (0.01-0.08) K/mm3 Sodium (136-145) mEq/L Potassium (3.5-5.1) mEq/L Chloride (98-107) mEq/L Carbon Dioxide (21-32) mEq/L Anion Gap (5-15) BUN (7-18) mg/dL Creatinine (0.7-1.3) mg/dL Est Cr Clr Drug Dosing mL/min Estimated GFR (MDRD) (>60) mL/min BUN/Creatinine Ratio (14-18) Glucose (83-115) mg/dL Calcium (8.5-10.1) mg/dL Total Bilirubin (0.2-1.0) mg/dL AST (15-37) U/L ALT (16-63) U/L Alkaline Phosphatase (46-116) U/L C-Reactive Protein (<1.0) mg/dL NT-Pro-B Natriuret Pep 345 (0-450) pg/mL Total Protein (6.4-8.2) g/dl Albumin (3.4-5.0) g/dl Globulin gm/dL Albumin/Globulin Ratio (1-2) Meds: Medications Discontinued Medications Generic Name Dose Route Start Last Admin Trade Name Freq PRN Reason Stop Dose Admin Albuterol 2.5 mg 11/28/19 16:47 11/28/19 16:57 Proventil Neb Soln NEB 11/28/19 16:48 2.5 mg ONETIME ONE Administration Doxycycline Hyclate 100 mg 11/28/19 19:13 11/28/19 19:36 Vibramycin PO 11/28/19 19:14 100 mg ONETIME ONE Administration Departure - Departure Disposition: Home, Self-Care 01 Clinical Impression: COPD exacerbation Prescriptions: Doxycycline [Vibramycin] 100 mg PO BID #20 tab Instructions: Chronic Obstructive Pulmonary Disease Exacerbation, [id number] Referrals: Ryley Fernandes PA-C [Primary Care Provider] - Forms: ED Department Discharge Additional Instructions: Rest, drink plenty of fluids to maintain hydration, vaporizer or steam as needed , doxycycline 100 mg twice daily for 10 days. Prescription has been sent to your Pharmacy electronic. See Ryley at the clinic in about 5 days for recheck, call tomorrow AM for appt. Use inhaler as needed, use oxygen as needed, Return to ED as needed if symptoms worsening in any way. Sepsis Event Note - Evaluation Sepsis Screening Result: No Definite Risk - Focused Exam Date Exam was Performed: 11/28/19 Time Exam was Performed: 16:45 <Jonh Jackson - Last Filed: 11/30/19 11:25> Course - Re-Assessments/Exams Free Text/Narrative Re-Assessment/Exam: 11/30/19 11:24 Initial hx and exam was done by LEXY HathawayP student. I have also interviewed and examined patient. Her history and exam as documented. Chest x-ray did not show pneumonia or pulmonary congestion. Labs did come back relatively normal. C- reactive protein very mildly elevated. This does appear to be an exacerbation of COPD. Discharge instructions as documented. Departure - Departure Time of Disposition: 19:14 Condition: Fair Sepsis Event Note - Focused Exam Date Exam was Performed: 11/30/19 Time Exam was Performed: 11:24
[2019-11-28] MEDS ORDERED: Doxycycline 100 MG Cap PO ONE (19:13)
--- NOTE | 2019-11-29 07:32 | CR ---
Chest: Portable view of the chest was obtained. Comparison: Prior chest x-ray of 06/20/19. Heart size is within normal limits. Tortuous thoracic aorta is seen. Lung markings are mildly increased on the left side most likely representing bronchitis. Lungs otherwise are clear but hyperinflated. Bony structures are osteopenic. Impression: 1. Possible mild left-sided bronchitis. 2. Emphysematous change. 3. Nothing acute is otherwise seen. Diagnostic code #3 Study was dictated in [place] Standard Time
== END 2019-11-28 19:46 | disposition home or self-care (01) ==
LOC: JD.ED 15:51
DX: J44.1 Chronic obstructive pulmonary disease with (acute) exacerbation (principal); M19.90 Unspecified osteoarthritis, unspecified site; E11.9 Type 2 diabetes mellitus without complications; I10 Essential (primary) hypertension; J44.9 Chronic obstructive pulmonary disease, unspecified; E11.51 Type 2 diabetes mellitus with diabetic peripheral angiopathy without gangrene; Z79.82 Long term (current) use of aspirin; Z79.84 Long term (current) use of oral hypoglycemic drugs; Z87.891 Personal history of nicotine dependence; Z79.899 Other long term (current) drug therapy; Z88.1 Allergy status to other antibiotic agents
CPT/HCPCS: 36415; 71045; 80053; 83880; 85025; 86140; 93005; 94640; 99285; A9270; 93010; 99283

== ENCOUNTER 2020-02-25 21:30 | Inpatient (IN) | payer MEDICARE, BC ==
--- NOTE | 2020-02-25 22:00 | EDM.PDOC ---
ED HPI GENERAL MEDICAL PROBLEM - General Chief Complaint: Gastrointestinal Problem Stated Complaint: SOB VOMITING DIARRHEA Time Seen by Provider: 02/25/20 21:31 Source of Information: Reports: Patient, Family History Limitations: Reports: Other (Patient with mild to moderate dementia) - History of Present Illness INITIAL COMMENTS - FREE TEXT/NARRATIVE: TRIAGE NOTE -- Pt presents to ER for c/o nausea and vomiting since yesterday noon. Pt states he had 2-3 liquid stools yesterday and a small one today. Last meal was a salad yesterday at noon. Pt states that he is throwing up undigested salad from yesterday. Pt has a history of an intestinal blockage x 10 years ago. Risk factors consist of history of abdominal procedures and history suggestive of small bowel obstruction some years ago. Patient has not taken any medication or any other measure applied to moderate symptoms. He is comfortable and has no complaint of pain or any other complaint at the present time. No fever respiratory symptoms chest pain or any other symptom of acute medical illness otherwise. Patient noted to have chronic respiratory insufficiency and is on home O2. He also has peripheral vascular disease and type 2 diabetes. Upper Abdomen Pain Score (Numeric/FACES): 6 - Related Data Allergies Allergy/AdvReac Type Severity Reaction Status Date / Time amoxicillin [From Augmentin] AdvReac Severe Stomach Verified 02/25/20 21:49 Upset cefuroxime AdvReac Severe Stomach Verified 02/25/20 21:49 Upset clavulanic acid AdvReac Severe Stomach Verified 02/25/20 21:49 [From Augmentin] Upset hydrochlorothiazide AdvReac Severe Other Verified 02/25/20 21:49 losartan AdvReac Severe Stomach Verified 02/25/20 21:49 Upset metronidazole AdvReac Severe Stomach Verified 02/25/20 21:49 Upset morphine AdvReac Severe Stomach Verified 02/25/20 21:49 Upset tiotropium AdvReac Severe Stomach Verified 02/25/20 21:49 [From Spiriva with Upset HandiHaler] tramadol AdvReac Severe Stomach Verified 02/25/20 21:49 Upset Home Meds: Home Meds Aspirin [Halfprin] 81 mg PO BID 12/02/17 [History] Budesonide [Pulmicort] 0.5 mg IH BID 12/02/17 [History] Ipratropium [Atrovent HFA] 1 puff INH QID PRN 12/02/17 [History] LORazepam 0.5 mg PO TID PRN 12/02/17 [History] Lisinopril 20 mg PO DAILY 12/02/17 [History] Metoprolol Succinate 50 mg PO DAILY 12/02/17 [History] Prednisone [IJD: Prednisone] 5 mg PO ASDIRECTED 12/02/17 [History] dilTIAZem HCL [Taztia Xt] 360 mg PO QPM 12/02/17 [History] hydroCHLOROthiazide [Hydrochlorothiazide] 25 mg PO DAILY 12/02/17 [History] Arformoterol [Brovana] 2 ml INH BID 06/20/19 [History] Albuterol Sulfate [Proair Hfa] 90 mcg IH DAILY PRN 07/31/19 [History] Ondansetron [Ondansetron ODT] 1 tab PO TID PRN 02/25/20 [History] Tamsulosin [Flomax] 1 cap PO DAILY 02/25/20 [History] sitaGLIPtin Phosphate [Januvia] 2 tab PO DAILY 02/25/20 [History] Past Medical History Cardiovascular History: Reports: Hypertension, PVD Respiratory History: Reports: COPD, Pneumonia, Recurrent Other Respiratory History: nebulizers at home. states he wears oxygen 2 liters nasal cannula sometimes at night at home. Gastrointestinal History: Reports: Bowel Obstruction, GERD Genitourinary History: Reports: BPH, Renal Calculus Musculoskeletal History: Reports: Arthritis Endocrine/Metabolic History: Reports: Diabetes, Type II Oncologic (Cancer) History: Reports: Lung, Other (See Below) Other Oncologic History: lip - Past Surgical History HEENT Surgical History: Reports: Other (See Below) Other HEENT Surgeries/Procedures: sinuses removed Cardiovascular Surgical History: Reports: Other (See Below) Other Cardiovascular Surgeries/Procedures: abdominal anuerysm stents GI Surgical History: Reports: Appendectomy, Cholecystectomy, Colonoscopy, Hernia , Abdominal, Hernia, Inguinal, Hernia Repair/Other, Small Bowel Oncologic Surgical History: Reports: Other (See Below) Other Oncologic Surgeries/Procedures: left lung tumor removal Dermatological Surgical History: Reports: None Social & Family History - Family History Family Medical History: Noncontributory Cardiac: Reports: Stent - Tobacco Use Smoking Status *Q: Former Smoker Used Tobacco, but Quit: Yes Month/Year Tobacco Last Used: 1994 - Caffeine Use Caffeine Use: Reports: Coffee Other Caffeine Use: 2 cups/day Caffeine Use Comment: 3 cups of coffee a day - Recreational Drug Use Recreational Drug Use: No - Living Situation & Occupation Living situation: Reports: Occupation: Retired ED ROS GENERAL - Review of Systems Review Of Systems: Comprehensive ROS is negative, except as noted in HPI. ED EXAM, GENERAL - Physical Exam Exam: See Below Exam Limited By: No Limitations General Appearance: Alert, WD/WN, No Apparent Distress Eye Exam: Bilateral Eye: EOMI, PERRL Ears: Normal External Exam Nose: Normal Inspection Throat/Mouth: Normal Inspection, Normal Lips, Normal Voice, No Airway Compromise Head: Atraumatic, Normocephalic Neck: Normal Inspection, Supple, Non-Tender Respiratory/Chest: No Respiratory Distress, Lungs Clear (Though breath sounds are a bit decreased bilaterally not unexpected), No Accessory Muscle Use, Chest Non-Tender Cardiovascular: Regular Rate, Rhythm, No Edema GI/Abdominal: Soft, Non-Tender, Other (Mildly protuberant and tympanic). No: Guarding, Rigid, Rebound, Tender Back Exam: Normal Inspection Extremities: Normal Inspection, Non-Tender, No Pedal Edema Neurological: Alert, No Motor/Sensory Deficits Psychiatric: Normal Affect, Normal Mood Skin Exam: Warm, Dry Course - Vital Signs Last Recorded V/S: Last Vital Signs Temp 36.8 C 02/25/20 21:42 Pulse 96 02/25/20 21:42 Resp 22 H 02/25/20 21:42 BP 147/79 H 02/25/20 21:42 Pulse Ox 97 02/25/20 21:42 - Orders/Labs/Meds Orders: Active Orders 24 hr Category Date Time Status EKG Documentation Completion [RC] STAT Care 02/25/20 22:00 Active Abdomen Pelvis w Cont [CT] Stat Exams 02/25/20 22:50 Ordered Chest 1V Frontal [CR] Stat Exams 02/25/20 22:00 Taken UA RFX USMAN AND CULT IF INDIC [URIN] Stat Lab 02/25/20 22:01 Ordered Sodium Chloride 0.9% [Normal Saline] 1,000 ml Med 02/25/20 22:30 Active IV ASDIRECTED Medication Orders Sodium Chloride (Normal Saline) 1,000 mls @ 85 mls/hr IV ASDIRECTED HOLLEY Last Admin: 02/25/20 22:33 Dose: 85 mls/hr Labs: Laboratory Tests 02/25/20 02/25/20 02/25/20 Range/Units 22:10 22:10 22:10 WBC 13.13 H (4.23-9.07) K/mm3 RBC 4.78 (4.63-6.08) M/mm3 Hgb 14.4 (13.7-17.5) gm/dl Hct 42.4 (40.1-51.0) % MCV 88.7 (79.0-92.2) fl MCH 30.1 (25.7-32.2) pg MCHC 34.0 (32.2-35.5) g/dl RDW Std Deviation 42.5 (35.1-43.9) fL Plt Count 261 (163-337) K/mm3 MPV 9.7 (9.4-12.3) fl Neutrophils % (Manual) 85 H (40-60) % Band Neutrophils % 1 (0-10) % Lymphocytes % (Manual) 9 L (20-40) % Atypical Lymphs % 0 % Monocytes % (Manual) 4 (2-10) % Eosinophils % (Manual) 0 L (0.8-7.0) % Basophils % (Manual) 1 (0.2-1.2) Platelet Estimate Adequate RBC Morph Comment Normal PT 10.9 (9.7-12.0) SECONDS INR 1.00 APTT (22-31) SECONDS Sodium 135 L (136-145) mEq/L Potassium 4.2 (3.5-5.1) mEq/L Chloride 98 (98-107) mEq/L Carbon Dioxide 28 (21-32) mEq/L Anion Gap 13.2 (5-15) BUN 21 H (7-18) mg/dL Creatinine 1.3 (0.7-1.3) mg/dL Est Cr Clr Drug Dosing 41.31 mL/min Estimated GFR (MDRD) 52 (>60) mL/min BUN/Creatinine Ratio 16.2 (14-18) Glucose 214 H (83-115) mg/dL Calcium 8.4 L (8.5-10.1) mg/dL Total Bilirubin 1.4 H (0.2-1.0) mg/dL AST 13 L (15-37) U/L ALT 24 (16-63) U/L Alkaline Phosphatase 68 (46-116) U/L Troponin I < 0.017 (0.00-0.056) ng/mL Total Protein 7.1 (6.4-8.2) g/dl Albumin 3.6 (3.4-5.0) g/dl Globulin 3.5 gm/dL Albumin/Globulin Ratio 1.0 (1-2) Lipase 86 (73-393) U/L /03/11 Range/Units 22:10 WBC (4.23-9.07) K/mm3 RBC (4.63-6.08) M/mm3 Hgb (13.7-17.5) gm/dl Hct (40.1-51.0) % MCV (79.0-92.2) fl MCH (25.7-32.2) pg MCHC (32.2-35.5) g/dl RDW Std Deviation (35.1-43.9) fL Plt Count (163-337) K/mm3 MPV (9.4-12.3) fl Neutrophils % (Manual) (40-60) % Band Neutrophils % (0-10) % Lymphocytes % (Manual) (20-40) % Atypical Lymphs % % Monocytes % (Manual) (2-10) % Eosinophils % (Manual) (0.8-7.0) % Basophils % (Manual) (0.2-1.2) Platelet Estimate RBC Morph Comment PT (9.7-12.0) SECONDS INR APTT 28 (22-31) SECONDS Sodium (136-145) mEq/L Potassium (3.5-5.1) mEq/L Chloride (98-107) mEq/L Carbon Dioxide (21-32) mEq/L Anion Gap (5-15) BUN (7-18) mg/dL Creatinine (0.7-1.3) mg/dL Est Cr Clr Drug Dosing mL/min Estimated GFR (MDRD) (>60) mL/min BUN/Creatinine Ratio (14-18) Glucose (83-115) mg/dL Calcium (8.5-10.1) mg/dL Total Bilirubin (0.2-1.0) mg/dL AST (15-37) U/L ALT (16-63) U/L Alkaline Phosphatase (46-116) U/L Troponin I (0.00-0.056) ng/mL Total Protein (6.4-8.2) g/dl Albumin (3.4-5.0) g/dl Globulin gm/dL Albumin/Globulin Ratio (1-2) Lipase (73-393) U/L Meds: Medications Generic Name Dose Route Start Last Admin Trade Name Freq PRN Reason Stop Dose Admin Sodium Chloride 1,000 mls @ 85 mls/hr 02/25/20 22:30 02/25/20 22:33 Normal Saline IV 85 mls/hr ASDIRECTED HOLLEY Administration Discontinued Medications Generic Name Dose Route Start Last Admin Trade Name Freq PRN Reason Stop Dose Admin Iopamidol 100 ml 02/26/20 00:05 02/26/20 00:11 Isovue-300 (61%) IVPUSH 02/26/20 00:06 100 ml ONETIME ONE Administration - Re-Assessments/Exams Free Text/Narrative Re-Assessment/Exam: 02/26/20 00:48 CT scan shows "findings are consistent with early/partial mid small bowel obstruction." Dr. Adkins will admit the patient and Dr. Jiménez will be surgical forceps fabricator. Discussed with both. Departure - Departure Time of Disposition: 00:50 Disposition: Admitted As Inpatient 65 Condition: Fair Clinical Impression: Small bowel obstruction, Chronic respiratory insufficiency, On home O2 COPD (chronic obstructive pulmonary disease) Qualifiers: COPD type: COPD with acute exacerbation Qualified Code(s): J44.1 - Chronic obstructive pulmonary disease with (acute) exacerbation Type 2 diabetes mellitus Qualifiers: Diabetes mellitus pattern repair person insulin use: without pattern repair person use Diabetes mellitus complication status: without complication Qualified Code(s): E11.9 - Type 2 diabetes mellitus without complications - Discharge Information Referrals: Ryley Fernandes PA-C [Primary Care Provider] - Forms: ED Department Discharge Sepsis Event Note - Evaluation Sepsis Screening Result: No Definite Risk - Focused Exam Vital Signs: Vital Signs Temp Pulse Resp BP Pulse Ox 02/25/20 21:42 36.8 C 96 22 H 147/79 H 97 Date Exam was Performed: 02/26/20 Time Exam was Performed: 00:47 - My Orders Last 24 Hours: My Active Orders 02/25/20 22:00 EKG Documentation Completion [RC] STAT Chest 1V Frontal [CR] Stat 02/25/20 22:01 UA RFX USMAN AND CULT IF INDIC [URIN] Stat 02/25/20 22:30 Sodium Chloride 0.9% [Normal Saline] 1,000 ml IV ASDIRECTED 02/25/20 22:50 Abdomen Pelvis w Cont [CT] Stat - Assessment/Plan Last 24 Hours: My Active Orders 02/25/20 22:00 EKG Documentation Completion [RC] STAT Chest 1V Frontal [CR] Stat 02/25/20 22:01 UA RFX USMAN AND CULT IF INDIC [URIN] Stat 02/25/20 22:30 Sodium Chloride 0.9% [Normal Saline] 1,000 ml IV ASDIRECTED 02/25/20 22:50 Abdomen Pelvis w Cont [CT] Stat
[2020-02-25] MEDS ORDERED: Sodium Chloride 0.9% 1,000 ML IV SCH (22:30)
[2020-02-26] MEDS ORDERED: Iopamidol 612 MG/ML 100 ML Bottle IVPUSH ONE (00:05)
[2020-02-26] MEDS ORDERED: Ketorolac 30 MG/ML SDV IV PRN (01:21)
[2020-02-26] MEDS ORDERED: Ondansetron 4 MG/2 ML SDV IV PRN (01:21)
[2020-02-26] MEDS ORDERED: Heparin Sodium 5,000 Units/ML Vial SUBCUT SCH (01:30)
[2020-02-26] MEDS ORDERED: Sodium Chloride 0.9% 1,000 ML IV SCH (01:30)
--- NOTE | 2020-02-26 01:41 | PCM.HP.2 ---
H&P History of Present Illness - General Date of Service: 02/26/20 Admit Problem/Dx: Admission Diagnosis/Problem Admission Diagnosis/Problem Small bowel obstruction Source of Information: Patient History Limitations: Reports: No Limitations - History of Present Illness Initial Comments - Free Text/Narative: The patient is an 84-year-old gentleman who presented to the emergency department on February 25, 2020 after 1 day of abdominal pain. The patient also has a history of COPD and he is chronically short of breath. The abdominal distention is interfering with his breathing and uses oxygen at home. the patient has a history of small bowel obstruction and this is similar to his last episode. The patient last had bowel obstruction approximately 8 years ago. The patient has denied any fever or chills. He states that he has had some vomiting of undigested food as well as an episode of diarrhea followed by lack of flatus. The patient says that the pain is generally located in the middle part of his abdomen. The patient also has a history of abdominal aortic aneurysm which was repaired at the same time as his previous bowel obstruction. The patient says that he has had increasing abdominal pain when eating and vomiting has relieved his abdominal pain. The patient says that he is in minimal pain at this time. The patient also has a history of well-controlled diabetes and peripheral vascular disease. The patient is also in a DO NOT INTUBATE/DO NOT REUSCITATE category. The patient is and lives by himself in an assisted living. Onset of Symptoms: Reports: Sudden Duration of Symptoms: Reports: Day(s): Location: Reports: Abdomen Quality: Reports: Ache, Dull Severity: Moderate Improves with: Reports: Rest Worsens with: Reports: Movement Associated Symptoms: Reports: Nausea/Vomiting, Other (No flatus) Upper Abdomen Pain Score (Numeric/FACES): 6 - Related Data Allergies/Adverse Reactions: Allergies Allergy/AdvReac Type Severity Reaction Status Date / Time amoxicillin [From Augmentin] AdvReac Severe Stomach Verified 02/25/20 21:49 Upset cefuroxime AdvReac Severe Stomach Verified 02/25/20 21:49 Upset clavulanic acid AdvReac Severe Stomach Verified 02/25/20 21:49 [From Augmentin] Upset hydrochlorothiazide AdvReac Severe Other Verified 02/25/20 21:49 losartan AdvReac Severe Stomach Verified 02/25/20 21:49 Upset metronidazole AdvReac Severe Stomach Verified 02/25/20 21:49 Upset morphine AdvReac Severe Stomach Verified 02/25/20 21:49 Upset tiotropium AdvReac Severe Stomach Verified 02/25/20 21:49 [From Spiriva with Upset HandiHaler] tramadol AdvReac Severe Stomach Verified 02/25/20 21:49 Upset Home Medications: Home Meds Aspirin [Halfprin] 81 mg PO BID 12/02/17 [History] Budesonide [Pulmicort] 0.5 mg IH BID 12/02/17 [History] Ipratropium [Atrovent HFA] 1 puff INH QID PRN 12/02/17 [History] LORazepam 0.5 mg PO TID PRN 12/02/17 [History] Lisinopril 20 mg PO DAILY 12/02/17 [History] Metoprolol Succinate 50 mg PO DAILY 12/02/17 [History] Prednisone [IJD: Prednisone] 5 mg PO ASDIRECTED 12/02/17 [History] dilTIAZem HCL [Taztia Xt] 360 mg PO QPM 12/02/17 [History] hydroCHLOROthiazide [Hydrochlorothiazide] 25 mg PO DAILY 12/02/17 [History] Arformoterol [Brovana] 2 ml INH BID 06/20/19 [History] Albuterol Sulfate [Proair Hfa] 90 mcg IH DAILY PRN 07/31/19 [History] Ondansetron [Ondansetron ODT] 1 tab PO TID PRN 02/25/20 [History] Tamsulosin [Flomax] 1 cap PO DAILY 02/25/20 [History] sitaGLIPtin Phosphate [Januvia] 2 tab PO DAILY 02/25/20 [History] Past Medical History HEENT History: Reports: None Cardiovascular History: Reports: Aneurysm (AAA), Hypertension, PVD Respiratory History: Reports: COPD, Pneumonia, Recurrent Other Respiratory History: nebulizers at home. states he wears oxygen 2 liters nasal cannula sometimes at night at home. 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, Other (See Below) Other Oncologic History: lip Dermatologic History: Reports: None - Infectious Disease History Infectious Disease History: Reports: None - Past Surgical History HEENT Surgical History: Reports: Other (See Below) Other HEENT Surgeries/Procedures: sinuses removed Cardiovascular Surgical History: Reports: AAA Repair, Other (See Below) Other Cardiovascular Surgeries/Procedures: abdominal anuerysm stents GI Surgical History: Reports: Appendectomy, Cholecystectomy, Colonoscopy, Hernia , Abdominal, Hernia, Inguinal, Hernia Repair/Other, Small Bowel Oncologic Surgical History: Reports: Other (See Below) Other Oncologic Surgeries/Procedures: left lung tumor removal Dermatological Surgical History: Reports: None Social & Family History - Family History Family Medical History: Noncontributory Cardiac: Reports: Stent - Tobacco Use Smoking Status *Q: Former Smoker Used Tobacco, but Quit: Yes Month/Year Tobacco Last Used: 1994 - Caffeine Use Caffeine Use: Reports: Coffee Other Caffeine Use: 2 cups/day Caffeine Use Comment: 3 cups of coffee a day - Recreational Drug Use Recreational Drug Use: No - Living Situation & Occupation Living situation: Reports: , Assisted Living Occupation: Retired H&P Review of Systems - Review of Systems: Review Of Systems: See Below General: Reports: Weakness HEENT: Reports: No Symptoms Pulmonary: Reports: Shortness of Breath Cardiovascular: Reports: No Symptoms Gastrointestinal: Reports: Abdominal Pain, Diarrhea, Distension, Nausea, Vomiting (Undigested food). Denies: Flatus Genitourinary: Reports: No Symptoms Musculoskeletal: Reports: No Symptoms Skin: Reports: No Symptoms Psychiatric: Reports: No Symptoms Neurological: Reports: No Symptoms Hematologic/Lymphatic: Reports: No Symptoms Immunologic: Reports: No Symptoms Exam - Exam Exam: See Below - Vital Signs Vital Signs: Last Vital Signs Temp 36.8 C 02/25/20 21:42 Pulse 96 02/25/20 21:42 Resp 22 H 02/25/20 21:42 BP 147/79 H 02/25/20 21:42 Pulse Ox 97 02/25/20 21:42 Weight: 70.307 kg - Exam Quality Assessment: Supplemental Oxygen General: Alert, Oriented, Cooperative HEENT: Conjunctiva Clear, EACs Clear, EOMI, Nares Patent, Posterior Pharynx Clear, Pupils Equal. No: Mucosa Moist & [place]itta [place] (Dry) Neck: Supple, Trachea Midline Lungs: Clear to Auscultation, Normal Respiratory Effort, Other (increased AP diameter) Cardiovascular: Regular Rate, Regular Rhythm GI/Abdominal Exam: Soft, Non-Tender, Distended, Tender, Other (tympanic). No: Normal Bowel Sounds (Decreased), Guarding, Rigid, Rebound (Male) Exam: Deferred Rectal (Males) Exam: Deferred Back Exam: No: Normal Inspection (Kyphosis) Extremities: Normal Inspection, No Pedal Edema Skin: Warm, Dry, Intact, Other (multiple superficial vascular lesions on face) Neurological: Cranial Nerves Intact Neuro Extensive - Mental Status: Alert, Oriented x3, Memory Intact Neuro Extensive - Motor, Sensory, Reflexes: CN II-XII Intact Psychiatric: Alert, Normal Affect, Normal Mood - Patient Data Lab Results Last 24 hrs: Laboratory Results - last 24 hr 02/25/20 02/25/20 02/25/20 Range/Units 22:10 22:10 22:10 WBC 13.13 H (4.23-9.07) K/mm3 RBC 4.78 (4.63-6.08) M/mm3 Hgb 14.4 (13.7-17.5) gm/dl Hct 42.4 (40.1-51.0) % MCV 88.7 (79.0-92.2) fl MCH 30.1 (25.7-32.2) pg MCHC 34.0 (32.2-35.5) g/dl RDW Std Deviation 42.5 (35.1-43.9) fL Plt Count 261 (163-337) K/mm3 MPV 9.7 (9.4-12.3) fl Neutrophils % (Manual) 85 H (40-60) % Band Neutrophils % 1 (0-10) % Lymphocytes % (Manual) 9 L (20-40) % Atypical Lymphs % 0 % Monocytes % (Manual) 4 (2-10) % Eosinophils % (Manual) 0 L (0.8-7.0) % Basophils % (Manual) 1 (0.2-1.2) Platelet Estimate Adequate RBC Morph Comment Normal PT 10.9 (9.7-12.0) SECONDS INR 1.00 APTT (22-31) SECONDS Sodium 135 L (136-145) mEq/L Potassium 4.2 (3.5-5.1) mEq/L Chloride 98 (98-107) mEq/L Carbon Dioxide 28 (21-32) mEq/L Anion Gap 13.2 (5-15) BUN 21 H (7-18) mg/dL Creatinine 1.3 (0.7-1.3) mg/dL Est Cr Clr Drug Dosing 41.31 mL/min Estimated GFR (MDRD) 52 (>60) mL/min BUN/Creatinine Ratio 16.2 (14-18) Glucose 214 H (83-115) mg/dL Calcium 8.4 L (8.5-10.1) mg/dL Total Bilirubin 1.4 H (0.2-1.0) mg/dL AST 13 L (15-37) U/L ALT 24 (16-63) U/L Alkaline Phosphatase 68 (46-116) U/L Troponin I < 0.017 (0.00-0.056) ng/mL Total Protein 7.1 (6.4-8.2) g/dl Albumin 3.6 (3.4-5.0) g/dl Globulin 3.5 gm/dL Albumin/Globulin Ratio 1.0 (1-2) Lipase 86 (73-393) U/L 05/05/20 Range/Units 22:10 WBC (4.23-9.07) K/mm3 RBC (4.63-6.08) M/mm3 Hgb (13.7-17.5) gm/dl Hct (40.1-51.0) % MCV (79.0-92.2) fl MCH (25.7-32.2) pg MCHC (32.2-35.5) g/dl RDW Std Deviation (35.1-43.9) fL Plt Count (163-337) K/mm3 MPV (9.4-12.3) fl Neutrophils % (Manual) (40-60) % Band Neutrophils % (0-10) % Lymphocytes % (Manual) (20-40) % Atypical Lymphs % % Monocytes % (Manual) (2-10) % Eosinophils % (Manual) (0.8-7.0) % Basophils % (Manual) (0.2-1.2) Platelet Estimate RBC Morph Comment PT (9.7-12.0) SECONDS INR APTT 28 (22-31) SECONDS Sodium (136-145) mEq/L Potassium (3.5-5.1) mEq/L Chloride (98-107) mEq/L Carbon Dioxide (21-32) mEq/L Anion Gap (5-15) BUN (7-18) mg/dL Creatinine (0.7-1.3) mg/dL Est Cr Clr Drug Dosing mL/min Estimated GFR (MDRD) (>60) mL/min BUN/Creatinine Ratio (14-18) Glucose (83-115) mg/dL Calcium (8.5-10.1) mg/dL Total Bilirubin (0.2-1.0) mg/dL AST (15-37) U/L ALT (16-63) U/L Alkaline Phosphatase (46-116) U/L Troponin I (0.00-0.056) ng/mL Total Protein (6.4-8.2) g/dl Albumin (3.4-5.0) g/dl Globulin gm/dL Albumin/Globulin Ratio (1-2) Lipase (73-393) U/L Result Diagrams: 02/25/20 22:10 02/25/20 22:10 EKG INTERPRETATION EKG Date: 02/25/20 Time: 22:11 Rhythm: NSR Rate (Beats/Min): 91 [place]: Normal P-Wave: Present QRS: Normal ST-T: Normal QT: Normal NE/PQ Interval: 192/439 Comparison: NA - No Prior EKG EKG Interpretation Comments: Age indeterminant anteroseptal infarct Sepsis Event Note - Evaluation Sepsis Screening Result: No Definite Risk - Focused Exam Vital Signs: Vital Signs Temp Pulse Resp BP Pulse Ox 02/25/20 21:42 36.8 C 96 22 H 147/79 H 97 Date Exam was Performed: 02/26/20 Time Exam was Performed: 01:49 - Problem List (1) Small bowel obstruction SNOMED Code(s): 201787120 ICD Code: K56.609 - UNSP INTESTNL OBST, UNSP TO PARTIAL VERSUS COMPLETE OBST Status: Acute Priority: High Current Visit: Yes (2) Dehydration SNOMED Code(s): 93439525 ICD Code: E86.0 - DEHYDRATION Status: Acute Priority: High Current Visit: Yes Problem Details: IV fluids (3) Chronic respiratory insufficiency SNOMED Code(s): 327462898 ICD Code: R06.89 - OTHER ABNORMALITIES OF BREATHING Status: Chronic Priority: Medium Current Visit: Yes (4) On home O2 SNOMED Code(s): 216600008917 ICD Code: Z99.81 - DEPENDENCE ON SUPPLEMENTAL OXYGEN Status: Chronic Priority: Medium Current Visit: Yes (5) Type 2 diabetes mellitus SNOMED Code(s): 00001885 ICD Code: E11.9 - TYPE 2 DIABETES MELLITUS WITHOUT COMPLICATIONS Status: Chronic Priority: Medium Current Visit: Yes Qualifiers: Diabetes mellitus long goods drier insulin use: without long goods drier use Diabetes mellitus complication status: without complication Qualified Code(s): E11.9 - Type 2 diabetes mellitus without complications (6) COPD (chronic obstructive pulmonary disease) SNOMED Code(s): 26624260 ICD Code: J44.9 - CHRONIC OBSTRUCTIVE PULMONARY DISEASE, UNSPECIFIED Status : Chronic Priority: Medium Current Visit: Yes Problem Details: O2 dependent Qualifiers: COPD type: unspecified COPD Qualified Code(s): J44.9 - Chronic obstructive pulmonary disease, unspecified (7) History of AAA (abdominal aortic aneurysm) repair SNOMED Code(s): 981525038 ICD Code: Z98.890 - OTHER SPECIFIED POSTPROCEDURAL STATES Status: Chronic Priority: Low Current Visit: Yes Problem List Initiated/Reviewed/Updated: Yes Orders Last 24hrs: Active Orders 24 hr Category Date Time Status Admission Status [Patient Status] [ADT] Routine ADT 02/26/20 01:30 Active Patient Status [ADT] Routine ADT 02/26/20 01:21 Active Blood Glucose Check, Bedside [RC] QIDACANDBED Care 02/26/20 01:21 Active Blood Glucose Check, Bedside [RC] QIDACANDBED Care 02/26/20 01:21 Active Diabetes Education [RC] Click to Edit Care 02/26/20 01:30 Active EKG Documentation Completion [RC] STAT Care 02/25/20 22:00 Active Notify Provider Consults [RC] ASDIRECTED Care 02/26/20 01:29 Active Oxygen Therapy [RC] PRN Care 02/26/20 01:21 Active Up With Assistance [RC] ASDIRECTED Care 02/26/20 01:21 Active VTE/DVT Education [RC] PER UNIT ROUTINE Care 02/26/20 01:21 Active Vital Signs [RC] Q4H Care 02/26/20 01:21 Active Consult to Physician [CONS] Routine Cons 02/26/20 01:21 Active Nothing per Oral Now Diet [DIET] Diet 02/26/20 Breakfast Active Abdomen 1V Flat [CR] AM Exams 02/26/20 05:11 Ordered Abdomen Pelvis w Cont [CT] Stat Exams 02/25/20 22:50 Taken Chest 1V Frontal [CR] Stat Exams 02/25/20 22:00 Taken BASIC METABOLIC PANEL,BMP [CHEM] AM Lab 02/26/20 05:11 Ordered CBC WITH AUTO DIFF [HEME] AM Lab 02/26/20 05:11 Ordered GLYCOSYLATED HEMOGLOBIN,HGBA1C [CHEM] Routine Lab 02/26/20 01:21 Ordered LACTIC ACID [CHEM] Stat Lab 02/26/20 01:33 Ordered UA RFX USMAN AND CULT IF INDIC [URIN] Stat Lab 02/25/20 22:01 Ordered Heparin Sodium Med 02/26/20 01:30 Active 5,000 units SUBCUT Q8H Ketorolac [Toradol] Med 02/26/20 01:21 Active 30 mg IV Q6H PRN Ondansetron [Zofran] Med 02/26/20 01:21 Active 4 mg IV Q4H PRN Sodium Chloride 0.9% [Normal Saline] 1,000 ml Med 02/25/20 22:30 Active IV ASDIRECTED Sodium Chloride 0.9% [Normal Saline] 1,000 ml Med 02/26/20 01:30 Active IV ASDIRECTED Glucose Management Sub Q Reflex [OM.PC] Click To Edit Oth 02/26/20 01:21 Ordered Resuscitation Status Routine Resus Stat 02/26/20 01:21 Ordered Medication Orders Heparin Sodium (Porcine) (Heparin Sodium) 5,000 units SUBCUT Q8H [place] Sodium Chloride (Normal Saline) 1,000 mls @ 85 mls/hr IV ASDIRECTED [place] Last Admin: 02/25/20 22:33 Dose: 85 mls/hr Sodium Chloride (Normal Saline) 1,000 mls @ 85 mls/hr IV ASDIRECTED [facility] Ketorolac Tromethamine (Toradol) 30 mg IV Q6H PRN PRN Reason: Pain (moderate 4-6) Ondansetron HCl (Zofran) 4 mg IV Q4H PRN PRN Reason: Nausea/Vomiting Assessment/Plan Comment:: The patient is an 84-year-old gentleman as been admitted as an inpatient secondary to small bowel obstruction. The patient is not in any discomfort or vomiting at this time therefore the NG tube will be held and less necessary. General surgeon, Dr. Jiménez was contacted through the emergency department.the patient will also be kept on IV fluids consisting of normal saline at 85 mL per hour, he will be kept nothing by mouth except for ice chips and medications. The patient also has pain medication ordered if necessary. I' ve also ordered repeat laboratory studies. The patient will also have a repeat abdominal plain x-ray in the morning. The patient will be monitored via serial abdominal examinations.He is also being anticoagulated with the use of heparin. The patient will also have ambulation with assistance. The patient does have a mild leukocytosis which I think is secondary to his dehydration and I've ordered a lactic acid to help exclude sepsis although I think this to be less likely. The patient does have a history of COPD which was caused by his former smoking as well as toxic fume exposure and he does have a history of lung cancer and is being followed by oncology. He'll keep it on oxygen as necessary to keep his saturations around 92%. I've also continue the patient's home nebulizer treatments as well as COPD medications. The patient will be kept on low dose sliding scale insulin for now. I've ordered a hemoglobin A1c. The patient is currently a , lives by himself in an assisted living center and the patient will be kept in a DO NOT INTUBATE DO NOT RESUSCITATE category as this is his wish and he has advanced directives. PT/OT ordered. - Mortality Measure Prognosis:: Good (DNR/DNI)
[2020-02-26] MEDS: Heparin Sodium 5,000 Units/ML Vial SUBCUT SCH ×4 (05:56→21:08)
--- NOTE | 2020-02-26 07:26 | PCM.SN.2 ---
- Free Text/Narrative Note: Arnel Nance is an 84-year-old male patient who presented to our emergency room and was admitted in the overnight hours by Dr. Ponce for a small bowel obstruction. Initial H&P was done at this time and this will be a supplement to that. Today patient was examined by myself and Dr. Bashir. He reports that he has had varying degrees of nausea but no vomiting since coming into the hospital. Reports he did vomit 3 times yesterday and last bowel movement was yesterday. Reports it was quite watery. He does have a history of prior abdominal surgeries, in which she had a AAA repaired, and did have a small bowel obstruction in the past, about 8 years ago. He reports at that time he had NG tube placed for about 10 days. Labs today show improved WBC of 10.36 and hemoglobin of 13.5. This is likely somewhat due to dilution from IV fluids. Sodium has improved slightly to 136. Creatinine is stable at 1.3 with a GFR of 52. Hemoglobin A1c returned 7.00. Magnesium was low at 1.7 and 2 g IV supplementation were ordered. Phosphorus is good at 3.9. IV fluids were switched to LR. Patient does have a history of diabetes and his sugars have been elevated in the upper 100s to low 200s. We will continue bedside glucose monitoring every 6 hours as he remains n.p.o. Will order NG tube placement with low intermittent suction. Abdominal x-ray was obtained today and formal read is pending. Dr. Jiménez, general surgeon, did see the patient and recommends NG tube placement, bowel rest, and continue waiting for resumption of bowel function. Suspects cause is likely adhesions from prior abdominal surgeries. Currently denying any chest pain or shortness of breath but does report generalized abdominal pain. On physical exam lung sounds are clear in all quadrants. Normal S1 and S2 noted with no murmurs. No pedal edema. Abdomen is distended and patient reports underlies pain on palpation but he is unable to localize a specific point of maximal pain. Bowel sounds are diminished. We did discuss ambulation and plan of care. He will have PT/OT. Nursing will ambulate with patient. All questions were answered.
[2020-02-26] MEDS ORDERED: Albuterol 6.7 GM Inhaler INH PRN (07:28)
[2020-02-26] MEDS ORDERED: Albuterol 0.083% 2.5 MG/3 ML Neb Soln NEB PRN (07:37)
[2020-02-26] MEDS: Ketorolac 15 MG/ML SDV IVPUSH SCH ×3 (08:03→19:01)
[2020-02-26] MEDS: Arformoterol 15 MCG/2 ML Neb Soln INH SCH ×2 (08:07→20:37)
[2020-02-26] MEDS: Budesonide 0.5 MG/2 ML Neb Susp INH SCH ×2 (08:07→20:37)
[2020-02-26] MEDS ORDERED: Magnesium Sulfate/Water 2 GM in Premix Bag 1 BAG IV ONE (08:20)
--- NOTE | 2020-02-26 08:42 | PCM.CONS ---
H&P History of Present Illness - General Date of Service: 02/26/20 Admit Problem/Dx: Admission Diagnosis/Problem Admission Diagnosis/Problem Small bowel obstruction Source of Information: Patient History Limitations: Reports: No Limitations - History of Present Illness Other HPI/Comments: Mr. Nance is an 84 yo man with history small bowel obstruction who presents with obstructive symptoms for one day. He reports abdominal pain, distention, and vomiting. He has not passed flatus in the past day. On arrival to the ER, his vital signs are normal, he is in no acute distress, with lab work is significant for WBC >13,000. He has a history of AAA repair. Upper Abdomen Pain Score (Numeric/FACES): 6 - Related Data Allergies/Adverse Reactions: Allergies Allergy/AdvReac Type Severity Reaction Status Date / Time amoxicillin [From Augmentin] AdvReac Severe Stomach Verified 02/26/20 02:03 Upset cefuroxime AdvReac Severe Stomach Verified 02/26/20 02:03 Upset clavulanic acid AdvReac Severe Stomach Verified 02/26/20 02:03 [From Augmentin] Upset hydrochlorothiazide AdvReac Severe Other Verified 02/26/20 02:03 losartan AdvReac Severe Stomach Verified 02/26/20 02:03 Upset metronidazole AdvReac Severe Stomach Verified 02/26/20 02:03 Upset morphine AdvReac Severe Stomach Verified 02/26/20 02:03 Upset tiotropium AdvReac Severe Stomach Verified 02/26/20 02:03 [From Spiriva with Upset HandiHaler] tramadol AdvReac Severe Stomach Verified 02/26/20 02:03 Upset Home Medications: Home Meds Aspirin [Halfprin] 81 mg PO BID 12/02/17 [History] Budesonide [Pulmicort] 0.5 mg IH BID 12/02/17 [History] Ipratropium [Atrovent HFA] 1 puff INH QID PRN 12/02/17 [History] LORazepam 0.5 mg PO TID PRN 12/02/17 [History] Lisinopril 20 mg PO DAILY 12/02/17 [History] Metoprolol Succinate 50 mg PO DAILY 12/02/17 [History] Prednisone [IJD: Prednisone] 5 mg PO ASDIRECTED 12/02/17 [History] dilTIAZem HCL [Taztia Xt] 360 mg PO QPM 12/02/17 [History] hydroCHLOROthiazide [Hydrochlorothiazide] 25 mg PO DAILY 12/02/17 [History] Arformoterol [Brovana] 2 ml INH BID 06/20/19 [History] Albuterol Sulfate [Proair Hfa] 90 mcg IH DAILY PRN 07/31/19 [History] Ondansetron [Ondansetron ODT] 1 tab PO TID PRN 02/25/20 [History] Tamsulosin [Flomax] 1 cap PO DAILY 02/25/20 [History] sitaGLIPtin Phosphate [Januvia] 2 tab PO DAILY 02/25/20 [History] Past Medical History HEENT History: Reports: Other (See Below) Other HEENT History: wears glasses Cardiovascular History: Reports: Aneurysm, Hypertension, PVD Respiratory History: Reports: COPD, Pneumonia, Recurrent Other Respiratory History: nebulizers at home. states he wears oxygen 2 liters nasal cannula sometimes at night at home. 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, Other (See Below) Other Oncologic History: lip Dermatologic History: Reports: None - Infectious Disease History Infectious Disease History: Reports: Chicken Pox, Influenza, Mumps - Past Surgical History HEENT Surgical History: Reports: Other (See Below) Other HEENT Surgeries/Procedures: sinuses removed Cardiovascular Surgical History: Reports: AAA Repair, Other (See Below) Other Cardiovascular Surgeries/Procedures: abdominal anuerysm stents Respiratory Surgical History: Reports: None GI Surgical History: Reports: Appendectomy, Cholecystectomy, Colonoscopy, Hernia , Abdominal, Hernia, Inguinal, Hernia Repair/Other, Small Bowel Male Surgical History: Reports: None Endocrine Surgical History: Reports: None Musculoskeletal Surgical History: Reports: None Oncologic Surgical History: Reports: Other (See Below) Other Oncologic Surgeries/Procedures: left lung tumor removal Dermatological Surgical History: Reports: None Social & Family History - Family History Family Medical History: Noncontributory Cardiac: Reports: Stent - Tobacco Use Smoking Status *Q: Former Smoker Used Tobacco, but Quit: Yes Month/Year Tobacco Last Used: 1994 Second Hand Smoke Exposure: No - Caffeine Use Caffeine Use: Reports: Coffee Other Caffeine Use: 2 cups/day Caffeine Use Comment: 3 cups of coffee a day - Recreational Drug Use Recreational Drug Use: No - Living Situation & Occupation Living situation: Reports: , Assisted Living Occupation: Retired H&P Review of Systems - Review of Systems: Review Of Systems: See Below Gastrointestinal: Reports: Abdominal Pain, Distension, Nausea, Vomiting Exam - Exam Exam: See Below - Vital Signs Vital Signs: Last Vital Signs Temp 37.3 C 02/26/20 07:26 Pulse 72 02/26/20 07:26 Resp 20 02/26/20 07:26 BP 109/55 L 02/26/20 07:26 Pulse Ox 94 L 02/26/20 08:07 Weight: 69.717 kg - Exam Quality Assessment: Supplemental Oxygen General: Alert, Oriented, Cooperative HEENT: Conjunctiva Clear Neck: Trachea Midline Lungs: Normal Respiratory Effort Cardiovascular: Regular Rate GI/Abdominal Exam: Distended, Other (minimally tender, soft, no palpable mass or hernia, tympanitic on percussion) Skin: Warm, Dry Neuro Extensive - Mental Status: Alert Psychiatric: Normal Affect, Normal Mood - Patient Data Lab Results Last 24 hrs: Laboratory Results - last 24 hr 02/25/20 02/25/20 02/25/20 Range/Units 22:10 22:10 22:10 WBC 13.13 H (4.23-9.07) K/mm3 RBC 4.78 (4.63-6.08) M/mm3 Hgb 14.4 (13.7-17.5) gm/dl Hct 42.4 (40.1-51.0) % MCV 88.7 (79.0-92.2) fl MCH 30.1 (25.7-32.2) pg MCHC 34.0 (32.2-35.5) g/dl RDW Std Deviation 42.5 (35.1-43.9) fL Plt Count 261 (163-337) K/mm3 MPV 9.7 (9.4-12.3) fl Neut % (Auto) (34.0-67.9) % Lymph % (Auto) (21.8-53.1) % Weld % (Auto) (5.3-12.2) % Eos % (Auto) (0.8-7.0) Baso % (Auto) (0.1-1.2) % Neut # (Auto) (1.78-5.38) K/mm3 Lymph # (Auto) (1.32-3.57) K/mm3 Weld # (Auto) (0.30-0.82) K/mm3 Eos # (Auto) (0.04-0.54) K/mm3 Baso # (Auto) (0.01-0.08) K/mm3 Neutrophils % (Manual) 85 H (40-60) % Band Neutrophils % 1 (0-10) % Lymphocytes % (Manual) 9 L (20-40) % Atypical Lymphs % 0 % Monocytes % (Manual) 4 (2-10) % Eosinophils % (Manual) 0 L (0.8-7.0) % Basophils % (Manual) 1 (0.2-1.2) Manual Slide Review Platelet Estimate Adequate RBC Morph Comment Normal PT 10.9 (9.7-12.0) SECONDS INR 1.00 APTT (22-31) SECONDS Sodium 135 L (136-145) mEq/L Potassium 4.2 (3.5-5.1) mEq/L Chloride 98 (98-107) mEq/L Carbon Dioxide 28 (21-32) mEq/L Anion Gap 13.2 (5-15) BUN 21 H (7-18) mg/dL Creatinine 1.3 (0.7-1.3) mg/dL Est Cr Clr Drug Dosing 41.31 mL/min Estimated GFR (MDRD) 52 (>60) mL/min BUN/Creatinine Ratio 16.2 (14-18) Glucose 214 H (83-115) mg/dL POC Glucose (83-110) mg/dL Hemoglobin A1c (4.50-6.20) % Lactic Acid (0.4-2.0) mmol/L Calcium 8.4 L (8.5-10.1) mg/dL Phosphorus (2.6-4.7) mg/dL Magnesium (1.8-2.4) mg/dl Total Bilirubin 1.4 H (0.2-1.0) mg/dL AST 13 L (15-37) U/L ALT 24 (16-63) U/L Alkaline Phosphatase 68 (46-116) U/L Troponin I < 0.017 (0.00-0.056) ng/mL Total Protein 7.1 (6.4-8.2) g/dl Albumin 3.6 (3.4-5.0) g/dl Globulin 3.5 gm/dL Albumin/Globulin Ratio 1.0 (1-2) Lipase 86 (73-393) U/L Urine Color (Yellow) Urine Appearance (Clear) Urine pH (5.0-8.0) Ur Specific [place] (1.005-1.030) Urine Protein (Negative) Urine Glucose (UA) (Negative) Urine Ketones (Negative) Urine Occult Blood (Negative) Urine Nitrite (Negative) Urine Bilirubin (Negative) Urine Urobilinogen (0.2-1.0) Ur Leukocyte Esterase (Negative) 02/25/20 02/26/20 02/26/20 Range/Units 22:10 01:58 05:20 WBC (4.23-9.07) K/mm3 RBC (4.63-6.08) M/mm3 Hgb (13.7-17.5) gm/dl Hct (40.1-51.0) % MCV (79.0-92.2) fl MCH (25.7-32.2) pg MCHC (32.2-35.5) g/dl RDW Std Deviation (35.1-43.9) fL Plt Count (163-337) K/mm3 MPV (9.4-12.3) fl Neut % (Auto) (34.0-67.9) % Lymph % (Auto) (21.8-53.1) % Weld % (Auto) (5.3-12.2) % Eos % (Auto) (0.8-7.0) Baso % (Auto) (0.1-1.2) % Neut # (Auto) (1.78-5.38) K/mm3 Lymph # (Auto) (1.32-3.57) K/mm3 Weld # (Auto) (0.30-0.82) K/mm3 Eos # (Auto) (0.04-0.54) K/mm3 Baso # (Auto) (0.01-0.08) K/mm3 Neutrophils % (Manual) (40-60) % Band Neutrophils % (0-10) % Lymphocytes % (Manual) (20-40) % Atypical Lymphs % % Monocytes % (Manual) (2-10) % Eosinophils % (Manual) (0.8-7.0) % Basophils % (Manual) (0.2-1.2) Manual Slide Review Platelet Estimate RBC Morph Comment PT (9.7-12.0) SECONDS INR APTT 28 (22-31) SECONDS Sodium (136-145) mEq/L Potassium (3.5-5.1) mEq/L Chloride (98-107) mEq/L Carbon Dioxide (21-32) mEq/L Anion Gap (5-15) BUN (7-18) mg/dL Creatinine (0.7-1.3) mg/dL Est Cr Clr Drug Dosing mL/min Estimated GFR (MDRD) (>60) mL/min BUN/Creatinine Ratio (14-18) Glucose (83-115) mg/dL POC Glucose (83-110) mg/dL Hemoglobin A1c 7.00 H (4.50-6.20) % Lactic Acid 1.1 (0.4-2.0) mmol/L Calcium (8.5-10.1) mg/dL Phosphorus (2.6-4.7) mg/dL Magnesium (1.8-2.4) mg/dl Total Bilirubin (0.2-1.0) mg/dL AST (15-37) U/L ALT (16-63) U/L Alkaline Phosphatase (46-116) U/L Troponin I (0.00-0.056) ng/mL Total Protein (6.4-8.2) g/dl Albumin (3.4-5.0) g/dl Globulin gm/dL Albumin/Globulin Ratio (1-2) Lipase (73-393) U/L Urine Color (Yellow) Urine Appearance (Clear) Urine pH (5.0-8.0) Ur Specific [place] (1.005-1.030) Urine Protein (Negative) Urine Glucose (UA) (Negative) Urine Ketones (Negative) Urine Occult Blood (Negative) Urine Nitrite (Negative) Urine Bilirubin (Negative) Urine Urobilinogen (0.2-1.0) Ur Leukocyte Esterase (Negative) 02/26/20 02/26/20 02/26/20 Range/Units 05:20 05:20 05:20 WBC 10.36 H (4.23-9.07) K/mm3 RBC 4.52 L (4.63-6.08) M/mm3 Hgb 13.5 L (13.7-17.5) gm/dl Hct 40.3 (40.1-51.0) % MCV 89.2 (79.0-92.2) fl MCH 29.9 (25.7-32.2) pg MCHC 33.5 (32.2-35.5) g/dl RDW Std Deviation 42.6 (35.1-43.9) fL Plt Count 241 (163-337) K/mm3 MPV 10.7 (9.4-12.3) fl Neut % (Auto) 80.3 H (34.0-67.9) % Lymph % (Auto) 8.1 L (21.8-53.1) % Weld % (Auto) 10.7 (5.3-12.2) % Eos % (Auto) 0.3 L (0.8-7.0) Baso % (Auto) 0.2 (0.1-1.2) % Neut # (Auto) 8.32 H (1.78-5.38) K/mm3 Lymph # (Auto) 0.84 L (1.32-3.57) K/mm3 Weld # (Auto) 1.11 H (0.30-0.82) K/mm3 Eos # (Auto) 0.03 L (0.04-0.54) K/mm3 Baso # (Auto) 0.02 (0.01-0.08) K/mm3 Neutrophils % (Manual) (40-60) % Band Neutrophils % (0-10) % Lymphocytes % (Manual) (20-40) % Atypical Lymphs % % Monocytes % (Manual) (2-10) % Eosinophils % (Manual) (0.8-7.0) % Basophils % (Manual) (0.2-1.2) Manual Slide Review Abnormal smear Platelet Estimate RBC Morph Comment PT (9.7-12.0) SECONDS INR APTT (22-31) SECONDS Sodium 136 (136-145) mEq/L Potassium 4.0 (3.5-5.1) mEq/L Chloride 100 (98-107) mEq/L Carbon Dioxide 26 (21-32) mEq/L Anion Gap 14.0 (5-15) BUN 22 H (7-18) mg/dL Creatinine 1.3 (0.7-1.3) mg/dL Est Cr Clr Drug Dosing 40.97 mL/min Estimated GFR (MDRD) 52 (>60) mL/min BUN/Creatinine Ratio 16.9 (14-18) Glucose 184 H (83-115) mg/dL POC Glucose (83-110) mg/dL Hemoglobin A1c (4.50-6.20) % Lactic Acid (0.4-2.0) mmol/L Calcium 8.4 L (8.5-10.1) mg/dL Phosphorus 3.9 (2.6-4.7) mg/dL Magnesium 1.7 L (1.8-2.4) mg/dl Total Bilirubin (0.2-1.0) mg/dL AST (15-37) U/L ALT (16-63) U/L Alkaline Phosphatase (46-116) U/L Troponin I (0.00-0.056) ng/mL Total Protein (6.4-8.2) g/dl Albumin (3.4-5.0) g/dl Globulin gm/dL Albumin/Globulin Ratio (1-2) Lipase (73-393) U/L Urine Color (Yellow) Urine Appearance (Clear) Urine pH (5.0-8.0) Ur Specific [place] (1.005-1.030) Urine Protein (Negative) Urine Glucose (UA) (Negative) Urine Ketones (Negative) Urine Occult Blood (Negative) Urine Nitrite (Negative) Urine Bilirubin (Negative) Urine Urobilinogen (0.2-1.0) Ur Leukocyte Esterase (Negative) 02/26/20 02/26/20 Range/Units 05:45 06:04 WBC (4.23-9.07) K/mm3 RBC (4.63-6.08) M/mm3 Hgb (13.7-17.5) gm/dl Hct (40.1-51.0) % MCV (79.0-92.2) fl MCH (25.7-32.2) pg MCHC (32.2-35.5) g/dl RDW Std Deviation (35.1-43.9) fL Plt Count (163-337) K/mm3 MPV (9.4-12.3) fl Neut % (Auto) (34.0-67.9) % Lymph % (Auto) (21.8-53.1) % Weld % (Auto) (5.3-12.2) % Eos % (Auto) (0.8-7.0) Baso % (Auto) (0.1-1.2) % Neut # (Auto) (1.78-5.38) K/mm3 Lymph # (Auto) (1.32-3.57) K/mm3 Weld # (Auto) (0.30-0.82) K/mm3 Eos # (Auto) (0.04-0.54) K/mm3 Baso # (Auto) (0.01-0.08) K/mm3 Neutrophils % (Manual) (40-60) % Band Neutrophils % (0-10) % Lymphocytes % (Manual) (20-40) % Atypical Lymphs % % Monocytes % (Manual) (2-10) % Eosinophils % (Manual) (0.8-7.0) % Basophils % (Manual) (0.2-1.2) Manual Slide Review Platelet Estimate RBC Morph Comment PT (9.7-12.0) SECONDS INR APTT (22-31) SECONDS Sodium (136-145) mEq/L Potassium (3.5-5.1) mEq/L Chloride (98-107) mEq/L Carbon Dioxide (21-32) mEq/L Anion Gap (5-15) BUN (7-18) mg/dL Creatinine (0.7-1.3) mg/dL Est Cr Clr Drug Dosing mL/min Estimated GFR (MDRD) (>60) mL/min BUN/Creatinine Ratio (14-18) Glucose (83-115) mg/dL POC Glucose 188 H (83-110) mg/dL Hemoglobin A1c (4.50-6.20) % Lactic Acid (0.4-2.0) mmol/L Calcium (8.5-10.1) mg/dL Phosphorus (2.6-4.7) mg/dL Magnesium (1.8-2.4) mg/dl Total Bilirubin (0.2-1.0) mg/dL AST (15-37) U/L ALT (16-63) U/L Alkaline Phosphatase (46-116) U/L Troponin I (0.00-0.056) ng/mL Total Protein (6.4-8.2) g/dl Albumin (3.4-5.0) g/dl Globulin gm/dL Albumin/Globulin Ratio (1-2) Lipase (73-393) U/L Urine Color Yellow (Yellow) Urine Appearance Clear (Clear) Urine pH 5.5 (5.0-8.0) Ur Specific [place] 1.015 (1.005-1.030) Urine Protein Negative (Negative) Urine Glucose (UA) Negative (Negative) Urine Ketones Negative (Negative) Urine Occult Blood Negative (Negative) Urine Nitrite Negative (Negative) Urine Bilirubin Negative (Negative) Urine Urobilinogen 0.2 (0.2-1.0) Ur Leukocyte Esterase Negative (Negative) Result Diagrams: 02/26/20 05:20 02/26/20 05:20 Sepsis Event Note - Evaluation Sepsis Screening Result: No Definite Risk - Focused Exam Vital Signs: Vital Signs Temp Temp Pulse Pulse Resp BP BP 02/26/20 08:07 02/26/20 07:26 37.3 C 72 20 109/55 L 02/26/20 05:28 36.6 C 71 18 104/66 02/26/20 01:54 36.5 C 62 17 118/26 L 02/25/20 21:42 36.8 C 96 22 H 147/79 H Pulse Ox Pulse Ox 02/26/20 08:07 94 L 02/26/20 07:26 96 02/26/20 05:28 95 02/26/20 01:54 95 02/25/20 21:42 97 Date Exam was Performed: 02/26/20 Time Exam was Performed: 08:37 *Q Meaningful Use (ADM) - VTE Risk Assess *Q Each Risk Factor Represents 3 Points: Age 75 Years or Greater Total Score 3 Point Risk Factors: 3 Consult PN Assessment/Plan Procedures: Procedures ACUTE HEPATITIS PANEL (08/01/19) AGENT NOS ASSAY W/OPTIC (12/02/17) AIRWAY INHALATION TREATMENT (11/28/19) ASSAY OF BLOOD/URIC ACID (07/30/19) ASSAY OF LACTIC ACID (08/01/19) ASSAY OF MAGNESIUM (08/01/19) ASSAY OF NATRIURETIC PEPTIDE (11/28/19) ASSAY OF TROPONIN QUANT (06/20/19) BLOOD CULTURE FOR BACTERIA (12/02/17) C-REACTIVE PROTEIN (11/28/19) CARDIOVASCULAR STRESS TEST (06/06/17) CHEST WALL MANIPULATION (12/02/17) CHEST X-RAY 2VW FRONTAL&LATL (09/22/14) COMPLETE CBC W/AUTO DIFF WBC (11/28/19) COMPREHEN METABOLIC PANEL (11/28/19) CT ABD & PELV W/CONTRAST (08/01/19) CT ABD & PELVIS W/O CONTRAST (07/30/19) CT ANGIOGRAPHY CHEST (06/20/19) CULTURE SCREEN ONLY (01/04/19) DESTRUCT PREMALG LES 2-14 (09/09/19) DESTRUCT PREMALG LESION (09/09/19) ELECTROCARDIOGRAM TRACING (11/28/19) EMERGENCY DEPT VISIT (11/28/19) EMERGENCY DEPT VISIT (07/30/19) EMERGENCY DEPT VISIT (06/20/19) FIBRIN DEGRADATION QUANT (06/20/19) GAIT TRAINING THERAPY (08/01/19) GLUCOSE BLOOD TEST (08/01/19) GLYCOSYLATED HEMOGLOBIN TEST (08/14/19) HEPATITIS B SURFACE AG IA (08/01/19) HEPATITIS C AB TEST (08/01/19) HT MUSCLE IMAGE SPECT MULT (06/06/17) HYDRATE IV INFUSION ADD-ON (08/01/19) INFLUENZA ASSAY W/OPTIC (01/04/19) INFLUENZA DNA AMP PROB ADDL (12/02/17) INFLUENZA DNA AMP PROBE (12/02/17) INSERT TEMP BLADDER CATH (08/01/19) LEUKOCYTE ASSESSMENT FECAL (12/02/17) LIPID PANEL (08/14/19) MEASURE BLOOD OXYGEN LEVEL (08/01/19) MEASURE BLOOD OXYGEN LEVEL (08/01/19) MEASURE BLOOD OXYGEN LEVEL (12/02/17) MEASURE BLOOD OXYGEN LEVEL (12/02/17) METABOLIC PANEL TOTAL CA (12/02/17) MICROBE SUSCEPTIBLE USMAN (11/12/14) MR-STAPH DNA AMP PROBE (08/01/19) MRI LUMBAR SPINE W/O DYE (04/20/17) MYCOPLASMA ANTIBODY (12/02/17) OFFICE/OUTPATIENT VISIT EST (09/09/19) OFFICE/OUTPATIENT VISIT EST (06/20/18) OFFICE/OUTPATIENT VISIT EST (05/25/17) OT EVAL LOW COMPLEX 30 MIN (08/01/19) PT EVAL LOW COMPLEX 20 MIN (12/02/17) PT EVAL MOD COMPLEX 30 MIN (08/01/19) ROUTINE VENIPUNCTURE (11/28/19) STREP A AG IA (01/04/19) THER/PROPH/DIAG INJ IV PUSH (08/01/19) THER/PROPH/DIAG INJ SC/IM (08/01/19) THER/PROPH/DIAG IV INF INIT (12/02/17) THERAPEUTIC ACTIVITIES (08/01/19) TISSUE EXAM BY PATHOLOGIST (10/11/19) TX/PRO/DX INJ NEW DRUG ADDON (08/01/19) TX/PRO/DX INJ SAME DRUG CASH GRAIN FARMER (08/01/19) UPR/LXTR ART STDY 3+ LVLS (05/01/17) UR ALBUMIN QUANTITATIVE (08/14/19) URINALYSIS AUTO W/SCOPE (08/01/19) URINE BACTERIA CULTURE (11/12/14) US URINE CAPACITY MEASURE (07/30/19) X-RAY EXAM ABDOMEN 2 VIEWS (08/01/19) X-RAY EXAM CHEST 1 VIEW (11/28/19) X-RAY EXAM CHEST 2 VIEWS (06/20/19) X-RAY EXAM OF FOOT (06/20/18) Problem List Initiated/Reviewed/Updated: Yes Plan: Small bowel obstruction without evidence of ischemia, likely related to adhesions from prior abdominal operations. Recommend continued NPO, NG decompression and accurate recording of output; await return of bowel function. Requesting Provider: Lucille Date Consult Requested: 02/26/20 Reason for Consult: small bowel obstruction Patient History Reviewed: Yes Admission H&P Reviewed: Yes Notified Requestor: Yes
--- NOTE | 2020-02-26 09:54 | CR ---
Chest: Portable view of the chest was obtained. Comparison: Prior chest x-ray of 02/25/20. Heart size is normal. Tortuous thoracic aorta is seen. Nasogastric tube is seen which is coiled within the mid esophagus and then ascends superiorly into the neck. Tip of nasogastric tube is not seen on this exam. Lungs show no acute parenchymal change. Old left-sided rib deformities are seen. Impression: 1. Nasogastric tube coiled upon itself with tip being within the neck and not seen on this exam. Removal and repositioning will be needed. 2. Other findings believed to be incidental. Diagnostic code #3 This report was dictated in MDT
[2020-02-26] MEDS: Lactated Ringers 1,000 ML IV SCH ×2 (10:17→21:08)
--- NOTE | 2020-02-26 10:35 | CR ---
Chest: Portable view of the chest was obtained. Comparison: Prior chest x-ray of 11/28/19. Heart size is normal. Tortuous thoracic aorta is noted. Lung markings are mildly increased which appear chronic. No acute parenchymal change is seen. Bony structures are grossly intact. Impression: 1. Findings as described above. 2. Nothing acute is seen. Diagnostic code #2 This report was dictated in MDT
--- NOTE | 2020-02-26 10:55 | CR ---
Chest: Frontal view of the chest was obtained. Comparison: Previous chest x-ray performed earlier on the same day (9:21 AM). Nasogastric tube is seen. Tip of the nasogastric tube lies at the gastroesophageal junction and should be advanced. Chest x-ray is otherwise stable. Impression: 1. Tip of nasogastric tube at the gastroesophageal junction and should be advanced. Diagnostic code #3 This report was dictated in MDT
[2020-02-26] MEDS ORDERED: Metoprolol Tartrate 5 MG/5 ML SDV IVPUSH PRN (11:00)
--- NOTE | 2020-02-26 12:53 | CT ---
CT abdomen and pelvis Technique: Multiple axial sections were obtained from above the dome of the diaphragm inferiorly through the pubic symphysis. Intravenous contrast was utilized. No oral contrast has been given. Delayed images were also obtained through the abdomen and pelvis. Comparison: Prior CT abdomen and pelvis exam of 07/31/19. Findings: Dilated fluid-filled loops of small bowel are identified mostly within jejunum. Most of the ileal loops appear normal in size. Transition point appears to be within the right lower quadrant of the pelvis. There is a small amount of fluid being seen in this area which extends into a partial right femoral hernia. Free fluid is also noted within the dependent portion of the pelvis. Appendix is not visualized with certainty. Visualized lung bases show scattered pulmonary fibrosis. Liver contains no focal abnormality. Spleen appears within normal limits. Small hiatal hernia is noted. Adrenal glands show no nodule. Numerous cysts are seen within both kidneys. Surgical clips are seen from prior cholecystectomy. Pancreas shows no discrete abnormality. Aorta shows mid and distal aorta which shows intraluminal stents. Contrast remains within the stents. No retroperitoneal adenopathy or mesenteric abnormalities are otherwise seen. Delayed images show contrast within the ureters as well as within the bladder. Bone window settings were reviewed which show mild scattered degenerative change without acute osseous finding. Impression: 1. Findings compatible with small bowel obstruction with transition point within the right lower abdomen. This obstruction is most likely from adhesion. 2. Small amount of free fluid is seen within the pelvis within the dependent portions and within the right lower abdomen which extends into a partial right femoral hernia. 3. Other findings as noted above believed to be nonacute. Diagnostic code #3 This report was dictated in MDT I agree with preliminary report from winnie, finalized on 02/26/20, 1:09 AM Central Daylight Time [facility]
--- NOTE | 2020-02-26 13:24 | CR ---
Abdomen: Frontal view of the chest was obtained as well as view of the upper abdomen. Study obtained utilizing portable technique. Tip of nasogastric tube lies slightly proximal to the gastroesophageal junction. Chronic change within both lungs. Prior aortic abdominal surgery. Impression: 1. Tip of nasogastric tube slightly above the gastroesophageal junction. 2. Other findings as noted above. Diagnostic code #3 This report was dictated in MDT
[2020-02-26] MEDS: Benzocaine 20% Oral Spray 59.2 ML Canister MUCMEM PRN ×2 (13:56→19:05)
[2020-02-27] MEDS: Ketorolac 15 MG/ML SDV IVPUSH SCH ×4 (00:49→18:36)
[2020-02-27] MEDS ORDERED: D5 1/2 NS w/ 20 mEq/L KCl 1,000 ML IV SCH (06:45)
[2020-02-27] MEDS: Heparin Sodium 5,000 Units/ML Vial SUBCUT SCH ×3 (06:58→21:12)
--- NOTE | 2020-02-27 08:12 | PCM.SN.2 ---
- Free Text/Narrative Note: Date: 02/27/2020 Subjective: minimal abdominal pain. No flatus yet. Objective: Afebrile, Blood pressure up with systolics in 160 mm Hg range, other vitals within normal range. NG tube with about 1 L thin brownish output Breathing comfortably Abdomen moderately distended, soft, minimal tenderness, relatively dull to percussion Assessment: Hospital day 2 with small bowel obstruction, with 1 L NG output in 24 hours and no flatus since admission. Appears well clinically. Plan: Agree with current plan of care, recommend continued NG decompression and recording of output. Await return of bowel function.
[2020-02-27] MEDS: Benzocaine 20% Oral Spray 59.2 ML Canister MUCMEM PRN (08:31)
[2020-02-27] MEDS: Budesonide 0.5 MG/2 ML Neb Susp INH SCH ×2 (08:45→20:30)
[2020-02-27] MEDS: Arformoterol 15 MCG/2 ML Neb Soln INH SCH ×2 (08:45→20:30)
--- NOTE | 2020-02-27 10:22 | PCM.PN ---
- General Info Date of Service: 02/27/20 Admission Dx/Problem (Free Text): Admission Diagnosis/Problem Admission Diagnosis/Problem Small bowel obstruction Subjective Update: Patient continues with mild abdominal pain and nausea. 1 L out NGT over 24hrs. Functional Status: Reports: Pain Controlled - Review of Systems General: Reports: No Symptoms HEENT: Reports: No Symptoms Pulmonary: Reports: No Symptoms Cardiovascular: Reports: No Symptoms Gastrointestinal: Reports: Nausea Neurological: Reports: No Symptoms Psychiatric: Reports: No Symptoms - Patient Data Vitals - Most Recent: Last Vital Signs Temp 98.2 F 02/27/20 07:53 Pulse 94 02/27/20 07:53 Resp 20 02/27/20 07:53 BP 167/80 H 02/27/20 07:53 Pulse Ox 89 L 02/27/20 08:45 Weight - Most Recent: 155 lb I&O - Last 24 Hours: Intake & Output 02/26/20 02/27/20 02/27/20 22:59 06:59 14:59 Intake Total 1064 1231 Output Total 210 1190 Balance 854 41 Lab Results Last 24 Hours: Laboratory Results - last 24 hr 02/26/20 02/27/20 02/27/20 Range/Units 16:49 00:53 04:37 WBC 4.36 (4.23-9.07) K/mm3 RBC 4.08 L (4.63-6.08) M/mm3 Hgb 12.0 L D (13.7-17.5) gm/dl Hct 37.0 L (40.1-51.0) % MCV 90.7 (79.0-92.2) fl MCH 29.4 (25.7-32.2) pg MCHC 32.4 (32.2-35.5) g/dl RDW Std Deviation 42.6 (35.1-43.9) fL Plt Count 187 (163-337) K/mm3 MPV 11.1 (9.4-12.3) fl Neut % (Auto) 64.8 (34.0-67.9) % Lymph % (Auto) 17.7 L (21.8-53.1) % [place] % (Auto) 13.1 H (5.3-12.2) % Eos % (Auto) 3.4 (0.8-7.0) Baso % (Auto) 0.5 (0.1-1.2) % Neut # (Auto) 2.83 (1.78-5.38) K/mm3 Lymph # (Auto) 0.77 L (1.32-3.57) K/mm3 [place] # (Auto) 0.57 (0.30-0.82) K/mm3 Eos # (Auto) 0.15 (0.04-0.54) K/mm3 Baso # (Auto) 0.02 (0.01-0.08) K/mm3 Sodium (136-145) mEq/L Potassium (3.5-5.1) mEq/L Chloride (98-107) mEq/L Carbon Dioxide (21-32) mEq/L Anion Gap (5-15) BUN (7-18) mg/dL Creatinine (0.7-1.3) mg/dL Est Cr Clr Drug Dosing mL/min Estimated GFR (MDRD) (>60) mL/min BUN/Creatinine Ratio (14-18) Glucose (83-115) mg/dL POC Glucose 104 97 (83-110) mg/dL Calcium (8.5-10.1) mg/dL Phosphorus (2.6-4.7) mg/dL Magnesium (1.8-2.4) mg/dl Total Bilirubin (0.2-1.0) mg/dL AST (15-37) U/L ALT (16-63) U/L Alkaline Phosphatase (46-116) U/L Total Protein (6.4-8.2) g/dl Albumin (3.4-5.0) g/dl Globulin gm/dL Albumin/Globulin Ratio (1-2) 02/27/20 02/27/20 Range/Units 04:37 06:40 WBC (4.23-9.07) K/mm3 RBC (4.63-6.08) M/mm3 Hgb (13.7-17.5) gm/dl Hct (40.1-51.0) % MCV (79.0-92.2) fl MCH (25.7-32.2) pg MCHC (32.2-35.5) g/dl RDW Std Deviation (35.1-43.9) fL Plt Count (163-337) K/mm3 MPV (9.4-12.3) fl Neut % (Auto) (34.0-67.9) % Lymph % (Auto) (21.8-53.1) % [place] % (Auto) (5.3-12.2) % Eos % (Auto) (0.8-7.0) Baso % (Auto) (0.1-1.2) % Neut # (Auto) (1.78-5.38) K/mm3 Lymph # (Auto) (1.32-3.57) K/mm3 [place] # (Auto) (0.30-0.82) K/mm3 Eos # (Auto) (0.04-0.54) K/mm3 Baso # (Auto) (0.01-0.08) K/mm3 Sodium 140 (136-145) mEq/L Potassium 3.5 (3.5-5.1) mEq/L Chloride 104 (98-107) mEq/L Carbon Dioxide 29 (21-32) mEq/L Anion Gap 10.5 (5-15) BUN 21 H (7-18) mg/dL Creatinine 1.0 (0.7-1.3) mg/dL Est Cr Clr Drug Dosing 53.26 mL/min Estimated GFR (MDRD) > 60 (>60) mL/min BUN/Creatinine Ratio 21.0 H (14-18) Glucose 93 (83-115) mg/dL POC Glucose 87 (83-110) mg/dL Calcium 8.0 L (8.5-10.1) mg/dL Phosphorus 2.9 (2.6-4.7) mg/dL Magnesium 2.1 (1.8-2.4) mg/dl Total Bilirubin 1.2 H (0.2-1.0) mg/dL AST 13 L (15-37) U/L ALT 17 (16-63) U/L Alkaline Phosphatase 44 L (46-116) U/L Total Protein 6.0 L (6.4-8.2) g/dl Albumin 2.8 L (3.4-5.0) g/dl Globulin 3.2 gm/dL Albumin/Globulin Ratio 0.9 L (1-2) Med Orders - Current: Current Medications Albuterol (Proventil Neb Soln) 2.5 mg NEB Q4HRRT PRN PRN Reason: SOB/Wheezing Arformoterol Tartrate (Brovana) 15 mcg INH BID [facility] Last Admin: 02/27/20 08:45 Dose: 15 mcg Benzocaine (Hurricaine 20% [place]) 0 ml MUCMEM Q2H PRN PRN Reason: Other Last Admin: 02/27/20 08:31 Dose: 1 spray Budesonide (Pulmicort) 0.5 mg INH BID [facility] Last Admin: 02/27/20 08:45 Dose: 0.5 mg Heparin Sodium (Porcine) (Heparin Sodium) 5,000 units SUBCUT Q8HR [facility] Last Admin: 02/27/20 06:58 Dose: 5,000 units Potassium Chloride/Dextrose/Sod Cl (D5 1/2 Ns W/ 20 Meq/L Kcl) 1,000 mls @ 75 mls/hr IV ASDIRECTED [facility] Last Admin: 02/27/20 06:59 Dose: 75 mls/hr Ketorolac Tromethamine (Toradol) 15 mg IVPUSH Q6H [facility] Last Admin: 02/27/20 06:59 Dose: 15 mg Metoprolol Tartrate (Lopressor) 5 mg IVPUSH Q6H PRN PRN Reason: TACHYCARDIA HR >110 Ondansetron HCl (Zofran) 4 mg IV Q4H PRN PRN Reason: Nausea/Vomiting Last Admin: 02/27/20 08:28 Dose: 4 mg Discontinued Medications Albuterol (Proventil Hfa) 0 gm INH DAILY PRN PRN Reason: Shortness of Breath Heparin Sodium (Porcine) (Heparin Sodium) 5,000 units SUBCUT Q8H [facility] Last Admin: 02/26/20 02:05 Dose: Not Given Sodium Chloride (Normal Saline) 1,000 mls @ 85 mls/hr IV ASDIRECTED [facility] Last Admin: 02/25/20 22:33 Dose: 85 mls/hr Sodium Chloride (Normal Saline) 1,000 mls @ 85 mls/hr IV ASDIRECTED [facility] Lactated Ringer's (Ringers, Lactated) 1,000 mls @ 85 mls/hr IV ASDIRECTED [facility] Last Admin: 02/26/20 21:08 Dose: 85 mls/hr Magnesium Sulfate 2 gm/ Premix 50 mls @ 25 mls/hr IV ONETIME ONE Stop: 02/26/20 10:19 Last Admin: 05/06/20 09:17 Dose: 25 mls/hr Iopamidol (Isovue-300 (61%)) 100 ml IVPUSH ONETIME ONE Stop: 02/26/20 00:06 Last Admin: 02/26/20 00:11 Dose: 100 ml Ketorolac Tromethamine (Toradol) 30 mg IV Q6H PRN PRN Reason: Pain (moderate 4-6) Stop: 03/02/20 01:22 - Exam General: Alert, Oriented HEENT: Pupils Equal, Mucous Membr. Moist/[place] Neck: Supple Lungs: Clear to Auscultation, Normal Respiratory Effort Cardiovascular: Regular Rate, Regular Rhythm GI/Abdominal Exam: Soft, Tender (mild). No: Normal Bowel Sounds (absent) Extremities: Normal Inspection, Normal Range of Motion, Non-Tender, No Pedal Edema, Normal Capillary Refill Skin: Warm, Dry, Intact Neurological: No New Focal Deficit Psy/Mental Status: Alert, Normal Affect, Normal Mood Sepsis Event Note - Evaluation Sepsis Screening Result: No Definite Risk - Focused Exam Vital Signs: Vital Signs Temp Pulse Resp BP Pulse Ox Pulse Ox 02/27/20 08:45 89 L 02/27/20 07:53 98.2 F 94 20 167/80 H 95 02/27/20 06:49 98.1 F 91 18 161/75 H 90 L Date Exam was Performed: 02/27/20 Time Exam was Performed: 10:15 - Problem List Review Problem List Initiated/Reviewed/Updated: Yes - Plan Plan:: Assessment/Plan 84-year-old gentleman with small bowel obstruction. 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 Jiménez was contacted through the emergency department. Plan: * NPO * NG tube to suction. * change meds to IV * bowel rest HTN * On lisinopril, HCTZ, Metoprolol and Cardizem at home * BP here in the 160s systolic Plan * metoprolol IV for tachycardia * Hydralazine for BP >180/100 * restart home meds VITALY Type 2 DM * HbA1c 7.00 * On sitagliptin at home Plan * Hold sitagliptin * FSBS QID * SSI, low dose * D5 1/2 NS with 20 meq KCl/L at 100 ml/hr COPD * Not current exacerbation * On albuterol, ipratropium bromide, Brovana, Pulmicort, and prednisone prn Plan * Continue home meds. DO NOT INTUBATE DO NOT RESUSCITATE category as this is his wish and he has advanced directives. PT/OT ordered. Disposition: discharge to home in 2-3 days. VTE prophylaxis: heparin sq
[2020-02-27] MEDS ORDERED: 50% Dextrose in Water 50 ML Syringe IVPUSH PRN (10:47)
[2020-02-27] MEDS ORDERED: hydrALAZINE 20 MG/ML SDV IVPUSH PRN (11:08)
[2020-02-27] MEDS: Insulin Lispro 100 Units/ML 3 ML Vial SUBCUT SCH ×3 (11:11→21:22)
[2020-02-27] MEDS: D5 1/2 NS w/ 20 mEq/L KCl 1,000 ML IV SCH (17:59)
[2020-02-28] MEDS: Ketorolac 15 MG/ML SDV IVPUSH SCH ×3 (03:04→14:32)
[2020-02-28] MEDS: D5 1/2 NS w/ 20 mEq/L KCl 1,000 ML IV SCH (04:27)
[2020-02-28] MEDS ORDERED: D5 1/2 NS w/ 20 mEq/L KCl 1,000 ML IV SCH ×2 (06:00)
[2020-02-28] MEDS: Heparin Sodium 5,000 Units/ML Vial SUBCUT SCH ×2 (06:53→14:34)
[2020-02-28] MEDS: Insulin Lispro 100 Units/ML 3 ML Vial SUBCUT SCH ×4 (06:59→21:06)
[2020-02-28] MEDS: Arformoterol 15 MCG/2 ML Neb Soln INH SCH ×2 (08:08→20:10)
[2020-02-28] MEDS: Budesonide 0.5 MG/2 ML Neb Susp INH SCH ×2 (08:08→20:10)
--- NOTE | 2020-02-28 08:31 | PCM.SN.2 ---
- Free Text/Narrative Note: S: one small episode of flatus yesterday afternoon. reports sore throat with NG in place. No acute events. O: AF-VSS NG with similar thin brown liquid output to yesterday. Recorded 400 cc/24hr, down from 900 cc previously Abdomen moderately distended, not tender, soft A: Small bowel obstruction, with decrease in NG output and report of some flatus yesterday. Still with distention and almost feculent NG output. Now symptomatic for about 72 hours. P: I discussed with the patient, that, if he has not passed any more gas by lunch time and his NG output is still significant, my recommendation is for exploratory laparoscopy and adhesiolysis. I will reassess this afternoon.
--- NOTE | 2020-02-28 10:01 | PCM.PN ---
- General Info Date of Service: 02/28/20 Admission Dx/Problem (Free Text): Admission Diagnosis/Problem Admission Diagnosis/Problem Small bowel obstruction Subjective Update: Patient continues to have very little in the way of bowel function. He passed gas one time yesterday and has not since then. Still had 400 mL out of his NG tube, down from 900 the day before. Still has some lower abdominal pain. Functional Status: Reports: Pain Controlled - Review of Systems General: Reports: No Symptoms HEENT: Reports: No Symptoms Pulmonary: Reports: No Symptoms Cardiovascular: Reports: No Symptoms Gastrointestinal: Reports: Abdominal Pain, Nausea Musculoskeletal: Reports: No Symptoms Skin: Reports: No Symptoms Neurological: Reports: No Symptoms Psychiatric: Reports: No Symptoms - Patient Data Vitals - Most Recent: Last Vital Signs Temp 98.4 F 02/28/20 07:44 Pulse 79 02/28/20 07:44 Resp 20 02/28/20 07:44 BP 157/77 H 02/28/20 07:44 Pulse Ox 93 L 02/28/20 08:08 Weight - Most Recent: 150 lb I&O - Last 24 Hours: Intake & Output 02/27/20 02/28/20 02/28/20 22:59 06:59 14:59 Intake Total 824 1020 Output Total 800 1850 Balance 24 -830 Lab Results Last 24 Hours: Laboratory Results - last 24 hr 02/27/20 02/27/20 02/27/20 Range/Units 11:05 17:05 21:21 Sodium (136-145) mEq/L Potassium (3.5-5.1) mEq/L Chloride (98-107) mEq/L Carbon Dioxide (21-32) mEq/L Anion Gap (5-15) BUN (7-18) mg/dL Creatinine (0.7-1.3) mg/dL Est Cr Clr Drug Dosing mL/min Estimated GFR (MDRD) (>60) mL/min BUN/Creatinine Ratio (14-18) Glucose (83-115) mg/dL POC Glucose 120 H 121 H 125 H (83-110) mg/dL Calcium (8.5-10.1) mg/dL Phosphorus (2.6-4.7) mg/dL Magnesium (1.8-2.4) mg/dl Total Bilirubin (0.2-1.0) mg/dL AST (15-37) U/L ALT (16-63) U/L Alkaline Phosphatase (46-116) U/L Total Protein (6.4-8.2) g/dl Albumin (3.4-5.0) g/dl Globulin gm/dL Albumin/Globulin Ratio (1-2) 02/28/20 02/28/20 Range/Units 06:40 08:01 Sodium 137 (136-145) mEq/L Potassium 3.8 (3.5-5.1) mEq/L Chloride 103 (98-107) mEq/L Carbon Dioxide 28 (21-32) mEq/L Anion Gap 9.8 (5-15) BUN 9 (7-18) mg/dL Creatinine 0.9 (0.7-1.3) mg/dL Est Cr Clr Drug Dosing 57.75 mL/min Estimated GFR (MDRD) > 60 (>60) mL/min BUN/Creatinine Ratio 10.0 L (14-18) Glucose 134 H (83-115) mg/dL POC Glucose 159 H (83-110) mg/dL Calcium 8.3 L (8.5-10.1) mg/dL Phosphorus 2.0 L (2.6-4.7) mg/dL Magnesium 1.9 (1.8-2.4) mg/dl Total Bilirubin 0.9 (0.2-1.0) mg/dL AST 19 (15-37) U/L ALT 20 (16-63) U/L Alkaline Phosphatase 46 (46-116) U/L Total Protein 6.6 (6.4-8.2) g/dl Albumin 3.1 L (3.4-5.0) g/dl Globulin 3.5 gm/dL Albumin/Globulin Ratio 0.9 L (1-2) Med Orders - Current: Current Medications Albuterol (Proventil Neb Soln) 2.5 mg NEB Q4HRRT PRN PRN Reason: SOB/Wheezing Arformoterol Tartrate (Brovana) 15 mcg INH BID [facility] Last Admin: 02/28/20 08:08 Dose: 15 mcg Benzocaine (Hurricaine 20% [place]) 0 ml MUCMEM Q2H PRN PRN Reason: Other Last Admin: 02/27/20 08:31 Dose: 1 spray Budesonide (Pulmicort) 0.5 mg INH BID [facility] Last Admin: 02/28/20 08:08 Dose: 0.5 mg Dextrose/Water (Dextrose 50% In Water) 50 ml IVPUSH ASDIRECTED PRN PRN Reason: Hypoglycemia Enoxaparin Sodium (Lovenox) 40 mg SUBCUT Q12H [facility] Heparin Sodium (Porcine) (Heparin Sodium) 5,000 units SUBCUT Q8HR [facility] Stop: 02/28/20 23:00 Last Admin: 02/28/20 06:53 Dose: 5,000 units Hydralazine HCl (Apresoline) 10 mg IVPUSH Q4H PRN PRN Reason: Hypertension Potassium Chloride/Dextrose/Sod Cl (D5 1/2 Ns W/ 20 Meq/L Kcl) 1,000 mls @ 75 mls/hr IV ASDIRECTED [facility] Insulin Human Lispro (Humalog) 0 unit SUBCUT QIDACANDBED [facility]; Protocol Last Admin: 02/28/20 06:59 Dose: 1 units Ketorolac Tromethamine (Toradol) 15 mg IVPUSH Q6H [facility] Last Admin: 02/28/20 06:48 Dose: 15 mg Metoprolol Tartrate (Lopressor) 5 mg IVPUSH Q6H PRN PRN Reason: TACHYCARDIA HR >110 Ondansetron HCl (Zofran) 4 mg IV Q4H PRN PRN Reason: Nausea/Vomiting Last Admin: 02/27/20 08:28 Dose: 4 mg Discontinued Medications Albuterol (Proventil Hfa) 0 gm INH DAILY PRN PRN Reason: Shortness of Breath Heparin Sodium (Porcine) (Heparin Sodium) 5,000 units SUBCUT Q8H [facility] Last Admin: 02/26/20 02:05 Dose: Not Given Sodium Chloride (Normal Saline) 1,000 mls @ 85 mls/hr IV ASDIRECTED [facility] Last Admin: 02/25/20 22:33 Dose: 85 mls/hr Sodium Chloride (Normal Saline) 1,000 mls @ 85 mls/hr IV ASDIRECTED [facility] Lactated Ringer's (Ringers, Lactated) 1,000 mls @ 85 mls/hr IV ASDIRECTED [facility] Last Admin: 02/26/20 21:08 Dose: 85 mls/hr Magnesium Sulfate 2 gm/ Premix 50 mls @ 25 mls/hr IV ONETIME ONE Stop: 02/26/20 10:19 Last Admin: 02/26/20 09:17 Dose: 25 mls/hr Potassium Chloride/Dextrose/Sod Cl (D5 1/2 Ns W/ 20 Meq/L Kcl) 1,000 mls @ 75 mls/hr IV ASDIRECTED [facility] Last Admin: 02/27/20 06:59 Dose: 75 mls/hr Potassium Chloride/Dextrose/Sod Cl (D5 1/2 Ns W/ 20 Meq/L Kcl) 1,000 mls @ 100 mls/hr IV ASDIRECTED [facility] Last Admin: 02/28/20 04:27 Dose: 100 mls/hr Potassium Chloride/Dextrose/Sod Cl (D5 1/2 Ns W/ 20 Meq/L Kcl) 1,000 mls @ 75 mls/hr IV ASDIRECTED [facility] Iopamidol (Isovue-300 (61%)) 100 ml IVPUSH ONETIME ONE Stop: 02/26/20 00:06 Last Admin: 02/26/20 00:11 Dose: 100 ml Ketorolac Tromethamine (Toradol) 30 mg IV Q6H PRN PRN Reason: Pain (moderate 4-6) Stop: 03/02/20 01:22 - Exam General: Alert, Oriented HEENT: Pupils Equal, Mucous Membr. Moist/[place] Neck: Supple Lungs: Normal Respiratory Effort, Decreased Breath Sounds Cardiovascular: Regular Rate, Regular Rhythm GI/Abdominal Exam: Soft, Distended, Tender (mild lower abdominal ) Back Exam: Normal Inspection Extremities: Normal Inspection, Normal Range of Motion, Non-Tender, No Pedal Edema, Normal Capillary Refill Skin: Warm, Dry, Intact Neurological: No New Focal Deficit Psy/Mental Status: Alert, Normal Affect, Normal Mood Sepsis Event Note - Evaluation Sepsis Screening Result: No Definite Risk - Focused Exam Vital Signs: Vital Signs Temp Pulse Resp BP Pulse Ox Pulse Ox 02/28/20 08:08 93 L 02/28/20 07:44 98.4 F 79 20 157/77 H 92 L 02/28/20 03:11 98.1 F 90 16 152/68 H 91 L Date Exam was Performed: 02/28/20 Time Exam was Performed: 10:03 - Problem List Review Problem List Initiated/Reviewed/Updated: Yes - My Orders Last 24 Hours: My Active Orders 02/27/20 10:47 Blood Glucose Check, Bedside [RC] QIDACANDBED Dextrose 50% in Water 50 ml IVPUSH ASDIRECTED PRN 02/27/20 11:00 Insulin Lispro [HumaLOG] See Protocol SUBCUT QIDACANDBED 02/27/20 11:08 hydrALAZINE [Apresoline] 10 mg IVPUSH Q4H PRN 02/29/20 08:00 Enoxaparin [Lovenox] 40 mg SUBCUT Q12H - Plan Plan:: Assessment/Plan 84-year-old gentleman with small bowel obstruction. 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 Jiménez was contacted through the emergency department. * 400 mL out of NG tube overnight Plan: * NPO * NG tube to suction. * change meds to IV * bowel rest * Patient may go to surgery either today or tomorrow. * He is a moderate surgical risk for medical complications. He is 84 years old , diabetes, hypertension, and has severe COPD. He is oxygen dependent at home, although here he has had good oxygenation and is off of O2. HTN * On lisinopril, HCTZ, Metoprolol and Cardizem at home * BP here in the 160s systolic Plan * metoprolol IV for tachycardia * Hydralazine for BP >180/100 * restart home meds VITALY Type 2 DM * HbA1c 7.00 * On sitagliptin at home * Fingerstick blood sugars ranging from 90s to 150s. Plan * Hold sitagliptin * FSBS QID * SSI, low dose * D5 1/2 NS with 20 meq KCl/L at 75 ml/hr COPD * Not current exacerbation * On albuterol, ipratropium bromide, Brovana, Pulmicort, and prednisone prn Plan * Continue home meds. DO NOT INTUBATE DO NOT RESUSCITATE category as this is his wish and he has advanced directives. PT/OT ordered. Disposition: discharge to home in 2-3 days. VTE prophylaxis: heparin sq
--- NOTE | 2020-02-28 10:11 | PCM.PREANE ---
Preanesthetic Assessment - Procedure Proposed Procedure: Exploratory Laparoscopy and adhesiolysis - Anesthesia/Transfusion/Family Hx Anesthesia History: Prior Anesthesia Without Reaction Family History of Anesthesia Reaction: No Transfusion History: No Prior Transfusion(s) - Review of Systems General: Fatigue Pulmonary: No Symptoms Cardiovascular: No Symptoms Gastrointestinal: Abdominal Pain, Other (NG to low intermitant suction) Neurological: Numbness ("in toes at times") Other: Reports: Easy Bruising, Diabetes (gluco check this am 134) - Physical Assessment NPO Status Date: 02/27/20 NPO Status Time: 00:00 Vital Signs: Last Vital Signs Temp 36.9 C 02/28/20 07:44 Pulse 79 02/28/20 07:44 Resp 20 02/28/20 07:44 BP 157/77 H 02/28/20 07:44 Pulse Ox 93 L 02/28/20 08:08 Height: 1.78 m Weight: 68.039 kg ASA Class: 3 Mental Status: Alert & Oriented x3 Airway Class: Mallampati = 1 Thyro-Mental Finger Breadths: 3 Mouth Opening Finger Breadths: 3 ROM/Head Extension: Limited/Partial (arthritis) Lungs: Clear to Auscultation, Normal Respiratory Effort, Decreased Breath Sounds Cardiovascular: Regular Rate, Regular Rhythm - Lab Values: Laboratory Last Values WBC 4.36 K/mm3 (4.23-9.07) 02/27/20 04:37 RBC 4.08 M/mm3 (4.63-6.08) L 02/27/20 04:37 Hgb 12.0 gm/dl (13.7-17.5) L D 02/27/20 04:37 Hct 37.0 % (40.1-51.0) L 02/27/20 04:37 MCV 90.7 fl (79.0-92.2) 02/27/20 04:37 MCH 29.4 pg (25.7-32.2) 02/27/20 04:37 MCHC 32.4 g/dl (32.2-35.5) 02/27/20 04:37 RDW Std Deviation 42.6 fL (35.1-43.9) 02/27/20 04:37 Plt Count 187 K/mm3 (163-337) 02/27/20 04:37 MPV 11.1 fl (9.4-12.3) 02/27/20 04:37 Neut % (Auto) 64.8 % (34.0-67.9) 02/27/20 04:37 Lymph % (Auto) 17.7 % (21.8-53.1) L 02/27/20 04:37 [place] % (Auto) 13.1 % (5.3-12.2) H 02/27/20 04:37 Eos % (Auto) 3.4 (0.8-7.0) 02/27/20 04:37 Baso % (Auto) 0.5 % (0.1-1.2) 02/27/20 04:37 Neut # (Auto) 2.83 K/mm3 (1.78-5.38) 02/27/20 04:37 Lymph # (Auto) 0.77 K/mm3 (1.32-3.57) L 02/27/20 04:37 [place] # (Auto) 0.57 K/mm3 (0.30-0.82) 02/27/20 04:37 Eos # (Auto) 0.15 K/mm3 (0.04-0.54) 02/27/20 04:37 Baso # (Auto) 0.02 K/mm3 (0.01-0.08) 02/27/20 04:37 Neutrophils % (Manual) 85 % (40-60) H 02/25/20 22:10 Band Neutrophils % 1 % (0-10) 02/25/20 22:10 Lymphocytes % (Manual) 9 % (20-40) L 02/25/20 22:10 Atypical Lymphs % 0 % 02/25/20 22:10 Monocytes % (Manual) 4 % (2-10) 02/25/20 22:10 Eosinophils % (Manual) 0 % (0.8-7.0) L 02/25/20 22:10 Basophils % (Manual) 1 (0.2-1.2) 02/25/20 22:10 Manual Slide Review Abnormal smear 02/26/20 05:20 Platelet Estimate Adequate 02/25/20 22:10 RBC Morph Comment Normal 02/25/20 22:10 PT 10.9 SECONDS (9.7-12.0) 02/25/20 22:10 INR 1.00 02/25/20 22:10 APTT 28 SECONDS (22-31) 02/25/20 22:10 Sodium 137 mEq/L (136-145) 02/28/20 08:01 Potassium 3.8 mEq/L (3.5-5.1) 02/28/20 08:01 Chloride 103 mEq/L (98-107) 02/28/20 08:01 Carbon Dioxide 28 mEq/L (21-32) 02/28/20 08:01 Anion Gap 9.8 (5-15) 02/28/20 08:01 BUN 9 mg/dL (7-18) 02/28/20 08:01 Creatinine 0.9 mg/dL (0.7-1.3) 02/28/20 08:01 Est Cr Clr Drug Dosing 57.75 mL/min 02/28/20 08:01 Estimated GFR (MDRD) > 60 mL/min (>60) 02/28/20 08:01 BUN/Creatinine Ratio 10.0 (14-18) L 02/28/20 08:01 Glucose 134 mg/dL (83-115) H 02/28/20 08:01 POC Glucose 159 mg/dL (83-110) H 02/28/20 06:40 Hemoglobin A1c 7.00 % (4.50-6.20) H 02/26/20 05:20 Lactic Acid 1.1 mmol/L (0.4-2.0) 02/26/20 01:58 Calcium 8.3 mg/dL (8.5-10.1) L 02/28/20 08:01 Phosphorus 2.0 mg/dL (2.6-4.7) L 02/28/20 08:01 Magnesium 1.9 mg/dl (1.8-2.4) 02/28/20 08:01 Total Bilirubin 0.9 mg/dL (0.2-1.0) 02/28/20 08:01 AST 19 U/L (15-37) 02/28/20 08:01 ALT 20 U/L (16-63) 02/28/20 08:01 Alkaline Phosphatase 46 U/L (46-116) 02/28/20 08:01 Troponin I < 0.017 ng/mL (0.00-0.056) 02/25/20 22:10 Total Protein 6.6 g/dl (6.4-8.2) 02/28/20 08:01 Albumin 3.1 g/dl (3.4-5.0) L 02/28/20 08:01 Globulin 3.5 gm/dL 02/28/20 08:01 Albumin/Globulin Ratio 0.9 (1-2) L 02/28/20 08:01 Lipase 86 U/L (73-393) 02/25/20 22:10 Urine Color Yellow (Yellow) 02/26/20 05:45 Urine Appearance Clear (Clear) 02/26/20 05:45 Urine pH 5.5 (5.0-8.0) 02/26/20 05:45 Ur Specific [place] 1.015 (1.005-1.030) 02/26/20 05:45 Urine Protein Negative (Negative) 02/26/20 05:45 Urine Glucose (UA) Negative (Negative) 02/26/20 05:45 Urine Ketones Negative (Negative) 02/26/20 05:45 Urine Occult Blood Negative (Negative) 02/26/20 05:45 Urine Nitrite Negative (Negative) 02/26/20 05:45 Urine Bilirubin Negative (Negative) 02/26/20 05:45 Urine Urobilinogen 0.2 (0.2-1.0) 02/26/20 05:45 Ur Leukocyte Esterase Negative (Negative) 02/26/20 05:45 - Imaging/EKG Impressions: 02/25/20 EKG NSR rate 91, age indeterminant anterior septal infract - Allergies Allergies/Adverse Reactions: Allergies Allergy/AdvReac Type Severity Reaction Status Date / Time amoxicillin [From Augmentin] AdvReac Mild Stomach Verified 02/26/20 15:44 Upset cefuroxime AdvReac Mild Stomach Verified 02/26/20 15:44 Upset clavulanic acid AdvReac Mild Stomach Verified 02/26/20 15:44 [From Augmentin] Upset hydrochlorothiazide AdvReac Mild Other Verified 02/26/20 15:44 losartan AdvReac Mild Stomach Verified 02/26/20 15:44 Upset metronidazole AdvReac Mild Stomach Verified 02/26/20 15:44 Upset morphine AdvReac Mild Stomach Verified 02/26/20 15:44 Upset tiotropium AdvReac Mild Stomach Verified 02/26/20 15:44 [From Spiriva with Upset HandiHaler] tramadol AdvReac Mild Stomach Verified 02/26/20 15:44 Upset - Anesthesia Plan Pre-Op Medication Ordered: None - Acknowledgements Anesthesia Type Planned: General Anesthesia Pt an Appropriate Candidate for the Planned Anesthesia: Yes Alternatives and Risks of Anesthesia Discussed w Pt/Guardian: Yes Pt/Guardian Understands and Agrees with Anesthesia Plan: Yes PreAnesthesia Questionnaire HEENT History: Reports: Other (See Below) Other HEENT History: wears glasses Cardiovascular History: Reports: Aneurysm, Hypertension, PVD Respiratory History: Reports: COPD, Pneumonia, Recurrent Other Respiratory History: nebulizers at home. states he wears oxygen 2 liters nasal cannula sometimes at night at home. 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, Other (See Below) Other Oncologic History: lip Dermatologic History: Reports: None - Infectious Disease History Infectious Disease History: Reports: Chicken Pox, Influenza, Mumps - Past Surgical History HEENT Surgical History: Reports: Other (See Below) Other HEENT Surgeries/Procedures: sinuses removed Cardiovascular Surgical History: Reports: AAA Repair, Other (See Below) Other Cardiovascular Surgeries/Procedures: abdominal anuerysm stents Respiratory Surgical History: Reports: None GI Surgical History: Reports: Appendectomy, Cholecystectomy, Colonoscopy, Hernia , Abdominal, Hernia, Inguinal, Hernia Repair/Other, Small Bowel Male Surgical History: Reports: None Endocrine Surgical History: Reports: None Musculoskeletal Surgical History: Reports: None Oncologic Surgical History: Reports: Other (See Below) Other Oncologic Surgeries/Procedures: left lung tumor removal Dermatological Surgical History: Reports: None - SUBSTANCE USE Smoking Status *Q: Former Smoker Tobacco Use Within Last Twelve Months: Cigarettes Second Hand Smoke Exposure: No Days Per Week of Alcohol Use: 0 Number of Drinks Per Day: 0 Total Drinks Per Week: 0 Recreational Drug Use History: No - HOME MEDS Home Medications: Home Meds Aspirin [Halfprin] 81 mg PO BID 12/02/17 [History] Budesonide [Pulmicort] 0.5 mg IH BID 12/02/17 [History] Ipratropium [Atrovent HFA] 1 puff INH QID PRN 12/02/17 [History] LORazepam 0.5 mg PO TID PRN 12/02/17 [History] Lisinopril 20 mg PO DAILY 12/02/17 [History] Metoprolol Succinate 50 mg PO DAILY 12/02/17 [History] Prednisone [IJD: Prednisone] 5 mg PO ASDIRECTED 12/02/17 [History] dilTIAZem HCL [Taztia Xt] 360 mg PO QPM 12/02/17 [History] hydroCHLOROthiazide [Hydrochlorothiazide] 25 mg PO DAILY 12/02/17 [History] Arformoterol [Brovana] 2 ml INH BID 06/20/19 [History] Albuterol Sulfate [Proair Hfa] 90 mcg IH DAILY PRN 07/31/19 [History] Ondansetron [Ondansetron ODT] 1 tab PO TID PRN 02/25/20 [History] Tamsulosin [Flomax] 1 cap PO DAILY 02/25/20 [History] sitaGLIPtin Phosphate [Januvia] 2 tab PO DAILY 02/25/20 [History] - CURRENT (IN HOUSE) MEDS Current Meds: Current Medications Albuterol (Proventil Neb Soln) 2.5 mg NEB Q4HRRT PRN PRN Reason: SOB/Wheezing Arformoterol Tartrate (Brovana) 15 mcg INH BID [facility] Last Admin: 02/28/20 08:08 Dose: 15 mcg Benzocaine (Hurricaine 20% [place]) 0 ml MUCMEM Q2H PRN PRN Reason: Other Last Admin: 02/27/20 08:31 Dose: 1 spray Budesonide (Pulmicort) 0.5 mg INH BID [facility] Last Admin: 02/28/20 08:08 Dose: 0.5 mg Dextrose/Water (Dextrose 50% In Water) 50 ml IVPUSH ASDIRECTED PRN PRN Reason: Hypoglycemia Enoxaparin Sodium (Lovenox) 40 mg SUBCUT Q24H [facility] Heparin Sodium (Porcine) (Heparin Sodium) 5,000 units SUBCUT Q8HR [facility] Stop: 02/28/20 23:00 Last Admin: 02/28/20 06:53 Dose: 5,000 units Hydralazine HCl (Apresoline) 10 mg IVPUSH Q4H PRN PRN Reason: Hypertension Potassium Chloride/Dextrose/Sod Cl (D5 1/2 Ns W/ 20 Meq/L Kcl) 1,000 mls @ 75 mls/hr IV ASDIRECTED [facility] Insulin Human Lispro (Humalog) 0 unit SUBCUT QIDACANDBED [facility]; Protocol Last Admin: 02/28/20 06:59 Dose: 1 units Ketorolac Tromethamine (Toradol) 15 mg IVPUSH Q6H [facility] Stop: 03/02/20 07:31 Last Admin: 02/28/20 06:48 Dose: 15 mg Metoprolol Tartrate (Lopressor) 5 mg IVPUSH Q6H PRN PRN Reason: TACHYCARDIA HR >110 Ondansetron HCl (Zofran) 4 mg IV Q4H PRN PRN Reason: Nausea/Vomiting Last Admin: 02/27/20 08:28 Dose: 4 mg Discontinued Medications Albuterol (Proventil Hfa) 0 gm INH DAILY PRN PRN Reason: Shortness of Breath Heparin Sodium (Porcine) (Heparin Sodium) 5,000 units SUBCUT Q8H [facility] Last Admin: 02/26/20 02:05 Dose: Not Given Sodium Chloride (Normal Saline) 1,000 mls @ 85 mls/hr IV ASDIRECTED [facility] Last Admin: 02/25/20 22:33 Dose: 85 mls/hr Sodium Chloride (Normal Saline) 1,000 mls @ 85 mls/hr IV ASDIRECTED [facility] Lactated Ringer's (Ringers, Lactated) 1,000 mls @ 85 mls/hr IV ASDIRECTED [facility] Last Admin: 02/26/20 21:08 Dose: 85 mls/hr Magnesium Sulfate 2 gm/ Premix 50 mls @ 25 mls/hr IV ONETIME ONE Stop: 02/26/20 10:19 Last Admin: 02/26/20 09:17 Dose: 25 mls/hr Potassium Chloride/Dextrose/Sod Cl (D5 1/2 Ns W/ 20 Meq/L Kcl) 1,000 mls @ 75 mls/hr IV ASDIRECTED [facility] Last Admin: 02/27/20 06:59 Dose: 75 mls/hr Potassium Chloride/Dextrose/Sod Cl (D5 1/2 Ns W/ 20 Meq/L Kcl) 1,000 mls @ 100 mls/hr IV ASDIRECTED [facility] Last Admin: 02/28/20 04:27 Dose: 100 mls/hr Potassium Chloride/Dextrose/Sod Cl (D5 1/2 Ns W/ 20 Meq/L Kcl) 1,000 mls @ 75 mls/hr IV ASDIRECTED [facility] Iopamidol (Isovue-300 (61%)) 100 ml IVPUSH ONETIME ONE Stop: 02/26/20 00:06 Last Admin: 02/26/20 00:11 Dose: 100 ml Ketorolac Tromethamine (Toradol) 30 mg IV Q6H PRN PRN Reason: Pain (moderate 4-6) Stop: 03/02/20 01:22
[2020-02-28] MEDS ORDERED: Lidocaine 1% 4 ML ONE (11:49)
[2020-02-28] MEDS ORDERED: Rocuronium 50 MG/5 ML Vial ONE (11:49)
[2020-02-28] MEDS ORDERED: Midazolam 1 MG/ML 2 ML SDV ONE (11:49)
[2020-02-28] MEDS ORDERED: Ondansetron 4 MG/2 ML SDV ONE (11:49)
[2020-02-28] MEDS ORDERED: Propofol 200 MG/20 ML SDV ONE (11:49)
[2020-02-28] MEDS ORDERED: fentaNYL 250 MCG/5 ML SDV ONE (11:49)
[2020-02-28] MEDS ORDERED: Lactated Ringers 1,000 ML ONE (11:50)
[2020-02-28] MEDS ORDERED: Succinylcholine/Sod PF 100 MG/5 ML SYRINGE IV ONE (11:51)
[2020-02-28] MEDS ORDERED: ceFAZolin 1 GM Vial ONE (11:52)
[2020-02-28] MEDS ORDERED: Bupivacaine 0.5%/EPINEPHrine 1:200,000 50 ML MDV ONE (11:53)
[2020-02-28] MEDS ORDERED: ceFAZolin 2 GM in Premix Bag 1 BAG IV SCH ×2 (12:00→13:30)
[2020-02-28] MEDS ORDERED: fentaNYL 100 MCG/2 ML SDV IVPUSH PRN (13:06)
[2020-02-28] MEDS ORDERED: Ondansetron 4 MG/2 ML SDV IVPUSH PRN (13:06)
[2020-02-28] MEDS ORDERED: HYDROmorphone 0.5 MG/0.5 ML Syringe IVPUSH PRN (13:06)
[2020-02-28] MEDS ORDERED: oxyCODONE 5 MG Tab PO PRN (13:23)
--- NOTE | 2020-02-28 13:32 | PCM.POSTAN ---
POST ANESTHESIA ASSESSMENT - MENTAL STATUS Mental Status: Alert, Oriented - VITAL SIGNS Vital Signs: Last Vital Signs Temp 98.4 F 02/28/20 07:44 Pulse 79 02/28/20 07:44 Resp 20 02/28/20 07:44 BP 157/77 H 02/28/20 07:44 Pulse Ox 94 L 02/28/20 12:10 1324 173/65 100 91 20 99.9 - RESPIRATORY Respiratory Status: Respiratory Rate WNL, Airway Patent, O2 Saturation Stable, Supplemental Oxygen - CARDIOVASCULAR CV Status: Pulse Rate WNL, Blood Pressure Stable - GASTROINTESTINAL GI Status: No Symptoms - POST OP HYDRATION Hydration Status: Adequate & Stable
--- NOTE | 2020-02-28 13:40 | PCM.PRNOTE ---
- Free Text/Narrative Note: Date: 02/28/2020 Operation: diagnostic laparoscopy, adhesiolysis Surgeon: Shady Jiménez MD Indication: small bowel obstruction without signs of improvement with nasogastric decompression after 72 hours. Findings: minor adhesions along anterior abdominal wall at midline. Visible pre- peritoneal inguinal hernia mesh with some wadding and minor adhesions to sigmoid colon on left side. Small right sided indirect inguinal hernia, reduced. No femoral hernia. The small bowel all appeared healthy, with no obvious transition point and no significantly dilated small bowel. Detailed Report: The patient was taken to the operating room and placed in supine position. Time out was performed and general endotracheal anesthesia initiated. The left arm was tucked at the patient's side, and the abdominal hair was clipped. The abdomen was prepped and draped in usual sterile fashion. 0.5% marcaine with epinephrine was injected at all incision sites. A Veress needle was inserted into the peritoneal cavity at Whatley's point without complication. The abdomen was insufflated, and a small infraumbilical incision was made for a 5 mm laparoscopic port. Air was aspirated at this site prior to trocar placement. Once the port was in place, A 5 mm 30 degree laparoscope was inserted. Additional 5 mm ports were placed at the left upper and left lower quadrants under visualization with the laparoscope. There was adhesed omentum and small bowel along the infraumbilical midline anterior abdominal wall. This was taken down sharply using the [place] Ligasure. The small bowel was then inspected from the ileocecal junction to the Ligament of Treitz. No additional transition point was identified. The mesentery of the bowel was not twisted. The bowel itself appeared viable and not especially dilated. The colon appeared normal. There was a pre-peritoneal mesh covering the left myopectineal orifice, with some minor bunching of the mesh and some adhesions between the mesh and the sigmoid colon that did not appear clinically significant. A small, shallow right indirect inguinal hernia was noted. There was no femoral hernia. Pneumoperitoneum was released and ports removed. Incisions were closed at the level of the skin with vicryl suture and dressed with dermabond. The patient tolerated the procedure well. Shady Jiménez MD General Surgery
[2020-02-28] MEDS: Acetaminophen 325 MG Tab PO SCH ×2 (14:32→20:52)
[2020-02-28] MEDS: Lactated Ringers 1,000 ML IV SCH (14:46)
[2020-02-28] MEDS: Tamsulosin 0.4 MG Cap.ER PO SCH (15:22)
[2020-02-28] MEDS: Diltiazem 180 MG Cap.CD PO SCH (17:19)
[2020-02-29] MEDS: Lactated Ringers 1,000 ML IV SCH (04:17)
[2020-02-29] MEDS: Acetaminophen 325 MG Tab PO SCH ×4 (04:20→21:05)
[2020-02-29] MEDS: Insulin Lispro 100 Units/ML 3 ML Vial SUBCUT SCH ×4 (07:10→21:06)
--- NOTE | 2020-02-29 08:00 | PCM.SN.2 ---
- Free Text/Narrative Note: S: no acute events. Reports ample urine output. Minor pain at lovenox injection sites. No nausea. Reports some flatus. Has an appetite. Tolerating full liquid diet. O: AF-VSS NG tube out Breathing comfortably on room air Abd with mild distention, dull to percussion, incision sites look good with minor surrounding ecchymosis A: POD 1 s/p laparoscopic adhesiolysis, doing well. P: d/c narcotics continue pumonary toilet, ambulating d/c iv fluids advance to regular diet anticipate discharge to home tomorrow if he continues to well, tolerating diet and passing flatus.
[2020-02-29] MEDS: Tamsulosin 0.4 MG Cap.ER PO SCH (08:05)
[2020-02-29] MEDS: Aspirin 81 MG Tab.EC PO SCH ×2 (08:06→21:05)
[2020-02-29] MEDS: Enoxaparin 40 MG/0.4 ML Syringe SUBCUT SCH (08:06)
[2020-02-29] MEDS: Metoprolol Succinate 50 MG Tab.ER PO SCH (08:08)
[2020-02-29] MEDS: Budesonide 0.5 MG/2 ML Neb Susp INH SCH ×2 (08:34→20:29)
[2020-02-29] MEDS: Arformoterol 15 MCG/2 ML Neb Soln INH SCH ×2 (08:34→20:29)
--- NOTE | 2020-02-29 11:18 | PCM48HPAN ---
Post Anesthesia Note - EVALUATION WITHIN 48HRS OF ANESTHETIC Vital Signs in Normal Range: Yes Patient Participated in Evaluation: Yes Respiratory Function Stable: Yes Airway Patent: Yes Cardiovascular Function Stable: Yes Hydration Status Stable: Yes Pain Control Satisfactory: Yes Nausea and Vomiting Control Satisfactory: Yes Mental Status Recovered: Yes Vital Signs: Last Vital Signs Temp 36.7 C 02/29/20 08:07 Pulse 88 02/29/20 08:08 Resp 16 02/29/20 08:07 BP 128/57 L 02/29/20 08:08 Pulse Ox 94 L 02/29/20 08:36 - COMMENTS/OBSERVATIONS Free Text/Narrative:: no anesthesia complications noted
[2020-02-29] MEDS: Diltiazem 180 MG Cap.CD PO SCH (17:34)
[2020-03-01] MEDS: Acetaminophen 325 MG Tab PO SCH (06:52)
[2020-03-01] MEDS: Insulin Lispro 100 Units/ML 3 ML Vial SUBCUT SCH (07:53)
[2020-03-01] MEDS: Enoxaparin 40 MG/0.4 ML Syringe SUBCUT SCH (07:55)
[2020-03-01] MEDS: Tamsulosin 0.4 MG Cap.ER PO SCH (08:00)
[2020-03-01] MEDS: Metoprolol Succinate 50 MG Tab.ER PO SCH (08:00)
[2020-03-01] MEDS: Aspirin 81 MG Tab.EC PO SCH (08:01)
[2020-03-01] MEDS: Budesonide 0.5 MG/2 ML Neb Susp INH SCH (08:04)
[2020-03-01] MEDS: Arformoterol 15 MCG/2 ML Neb Soln INH SCH (08:04)
--- NOTE | 2020-03-01 08:16 | PCM.DCSUM1 ---
Discharge Summary - Hospital Course Free Text/Narrative:: Mr. Nance is an 84 yo man with history of multiple abdominal operations and history of small bowel obstruction who presented 02/26/2020 with signs and symptoms of small bowel obstruction. He was admitted for NG tube decompression and fluid resuscitation. After 72 hours, his symptoms had not resolved, and so the decision was made to go to the operating room for laparoscopic exploration and adhesiolysis. The bowel looked healthly and relatively decompressed, with no evident point of obstruction. Adhesions to the anterior abdominal wall were lysed. Prior left inguinal hernia repair was evident with visualization of pre- peritoneal mesh. There was a small right inguinal hernia, reduced. THe patient did well post-operatively; the NG tube was removed and he tolerated a diet without problem. He began to regularly pass flatus. He was deemed fit for discharge on post-operative day 2. Diagnosis: Stroke: No - Discharge Data Discharge Date: 03/01/20 Discharge Disposition: Home, Self-Care 01 Condition: Good - Referral to Home Health Primary Care Physician: Ryley Fernandes PA-C - Patient Summary/Data Operative Procedure(s) Performed: laparoscopic lysis of adhesions Consults: Consultations 02/26/20 02:16 OT Evaluation and Treatment [CONS] Routine 02/26/20 02:17 Consult to Physical Therapy [PT Evaluation and Treatment] [CONS] Routine 02/26/20 07:27 Consult to Case Management/Client Support Professional [CONS] Routine - Patient Instructions Diet: Regular Diet as Tolerated, Diabetic Diet Activity: As Tolerated Showering/Bathing: May Shower Wound/Incision Care: Keep Operative Site/Wound Site Clean and Dry Notify Provider of: Fever, Increased Pain, Swelling and Redness, Drainage, Nausea and/or Vomiting - Discharge Plan *PRESCRIPTION DRUG MONITORING PROGRAM REVIEWED*: Not Applicable *COPY OF PRESCRIPTION DRUG MONITORING REPORT IN PATIENT CLEMENTE: Not Applicable Home Medications: Home Meds Aspirin [Halfprin] 81 mg PO BID 12/02/17 [History] Budesonide [Pulmicort] 0.5 mg IH BID 12/02/17 [History] Ipratropium [Atrovent HFA] 1 puff INH QID PRN 12/02/17 [History] LORazepam 0.5 mg PO TID PRN 12/02/17 [History] Lisinopril 20 mg PO DAILY 12/02/17 [History] Metoprolol Succinate 50 mg PO DAILY 12/02/17 [History] Prednisone [IJD: Prednisone] 5 mg PO ASDIRECTED 12/02/17 [History] dilTIAZem HCL [Taztia Xt] 360 mg PO QPM 12/02/17 [History] hydroCHLOROthiazide [Hydrochlorothiazide] 25 mg PO DAILY 12/02/17 [History] Arformoterol [Brovana] 2 ml INH BID 06/20/19 [History] Albuterol Sulfate [Proair Hfa] 90 mcg IH DAILY PRN 07/31/19 [History] Ondansetron [Ondansetron ODT] 1 tab PO TID PRN 02/25/20 [History] Tamsulosin [Flomax] 1 cap PO DAILY 02/25/20 [History] sitaGLIPtin Phosphate [Januvia] 2 tab PO DAILY 02/25/20 [History] Oxygen Therapy Mode: Room Air Forms: ED Department Discharge Referrals: Ryley Fernandes PA-C [Primary Care Provider] - - Discharge Summary/Plan Comment DC Time >30 min.: No - Patient Data Vitals - Most Recent: Last Vital Signs Temp 36.5 C 03/01/20 07:25 Pulse 78 03/01/20 08:00 Resp 20 03/01/20 07:25 BP 139/71 03/01/20 08:00 Pulse Ox 91 L 03/01/20 07:25 Weight - Most Recent: 69.808 kg I&O - Last 24 hours: Intake & Output 02/29/20 03/01/20 03/01/20 22:59 06:59 14:59 Intake Total 600 200 Output Total 600 Balance 0 200 Lab Results - Last 24 hrs: Laboratory Results - last 24 hr 02/29/20 02/29/20 02/29/20 Range/Units 11:11 17:34 20:43 POC Glucose 140 H 127 H 170 H (83-110) mg/dL 03/01/20 Range/Units 06:51 POC Glucose 138 H (83-110) mg/dL Med Orders - Current: Current Medications Acetaminophen (Tylenol) 325 mg PO Q8H [facility] Last Admin: 03/01/20 06:52 Dose: 325 mg Albuterol (Proventil Neb Soln) 2.5 mg NEB Q4HRRT PRN PRN Reason: SOB/Wheezing Last Admin: 02/28/20 12:08 Dose: 2.5 mg Arformoterol Tartrate (Brovana) 15 mcg INH BID [facility] Last Admin: 03/01/20 08:04 Dose: 15 mcg Aspirin (Halfprin) 81 mg PO BID [facility] Last Admin: 03/01/20 08:01 Dose: 81 mg Budesonide (Pulmicort) 0.5 mg INH BID [facility] Last Admin: 03/01/20 08:04 Dose: 0.5 mg Diltiazem HCl (Cardizem Cd) 360 mg PO QPM [facility] Last Admin: 02/29/20 17:34 Dose: 360 mg Enoxaparin Sodium (Lovenox) 40 mg SUBCUT Q24H [facility] Last Admin: 03/01/20 07:55 Dose: 40 mg Hydralazine HCl (Apresoline) 10 mg IVPUSH Q4H PRN PRN Reason: Hypertension Insulin Human Lispro (Humalog) 0 unit SUBCUT QIDACANDBED [facility]; Protocol Last Admin: 03/01/20 07:53 Dose: Not Given Metoprolol Succinate (Toprol Xl) 50 mg PO DAILY [facility] Last Admin: 03/01/20 08:00 Dose: 50 mg Tamsulosin HCl (Flomax) 0.4 mg PO DAILY [facility] Last Admin: 03/01/20 08:00 Dose: 0.4 mg Discontinued Medications Albuterol (Proventil Hfa) 0 gm INH DAILY PRN PRN Reason: Shortness of Breath Benzocaine (Hurricaine 20% [place]) 0 ml MUCMEM Q2H PRN PRN Reason: Other Last Admin: 02/27/20 08:31 Dose: 1 spray Bupivacaine HCl/Epinephrine Bitart (Marcaine 0.5%/Epinephrine 1:200,000) Confirm Administered Dose 50 ml .ROUTE .STK-MED ONE Stop: 02/28/20 11:54 Last Admin: 02/28/20 12:44 Dose: 20 ml Cefazolin Sodium (Ancef) Confirm Administered Dose 2 gm .ROUTE .STK-MED ONE Stop: 02/28/20 11:53 Dextrose/Water (Dextrose 50% In Water) 50 ml IVPUSH ASDIRECTED PRN PRN Reason: Hypoglycemia Fentanyl (Sublimaze) Confirm Administered Dose 250 mcg .ROUTE .STK-MED ONE Stop: 02/28/20 11:50 Fentanyl (Sublimaze) 50 mcg IVPUSH Q5M PRN PRN Reason: Pain Stop: 02/28/20 15:00 Glycopyrrolate () Confirm Administered Dose 1 mg .ROUTE .STK-MED ONE Stop: 02/28/20 13:08 Heparin Sodium (Porcine) (Heparin Sodium) 5,000 units SUBCUT Q8H [facility] Last Admin: 02/26/20 02:05 Dose: Not Given Heparin Sodium (Porcine) (Heparin Sodium) 5,000 units SUBCUT Q8HR [facility] Stop: 02/28/20 23:00 Last Admin: 02/28/20 14:34 Dose: Not Given Hydromorphone HCl (Dilaudid) 0.5 mg IVPUSH Q10M PRN PRN Reason: Pain (severe 7-10) Stop: 02/28/20 15:00 Sodium Chloride (Normal Saline) 1,000 mls @ 85 mls/hr IV ASDIRECTED [facility] Last Admin: 02/25/20 22:33 Dose: 85 mls/hr Sodium Chloride (Normal Saline) 1,000 mls @ 85 mls/hr IV ASDIRECTED [facility] Lactated Ringer's (Ringers, Lactated) 1,000 mls @ 85 mls/hr IV ASDIRECTED [facility] Last Admin: 02/26/20 21:08 Dose: 85 mls/hr Magnesium Sulfate 2 gm/ Premix 50 mls @ 25 mls/hr IV ONETIME ONE Stop: 02/26/20 10:19 Last Admin: 02/26/20 09:17 Dose: 25 mls/hr Potassium Chloride/Dextrose/Sod Cl (D5 1/2 Ns W/ 20 Meq/L Kcl) 1,000 mls @ 75 mls/hr IV ASDIRECTED [facility] Last Admin: 02/27/20 06:59 Dose: 75 mls/hr Potassium Chloride/Dextrose/Sod Cl (D5 1/2 Ns W/ 20 Meq/L Kcl) 1,000 mls @ 100 mls/hr IV ASDIRECTED [facility] Last Admin: 02/28/20 04:27 Dose: 100 mls/hr Potassium Chloride/Dextrose/Sod Cl (D5 1/2 Ns W/ 20 Meq/L Kcl) 1,000 mls @ 75 mls/hr IV ASDIRECTED [facility] Potassium Chloride/Dextrose/Sod Cl (D5 1/2 Ns W/ 20 Meq/L Kcl) 1,000 mls @ 75 mls/hr IV ASDIRECTED [facility] Cefazolin Sodium/Dextrose 2 gm (/ Premix) 50 mls @ 100 mls/hr IV Q8H [facility] Last Admin: 02/28/20 15:23 Dose: Not Given Lidocaine HCl (Xylocaine-Mpf 1%) Confirm Administered Dose 4 mls @ as directed .ROUTE .STK-MED ONE Stop: 02/28/20 11:50 Lactated Ringer's (Ringers, Lactated) Confirm Administered Dose 1,000 mls @ as directed .ROUTE .STK-MED ONE Stop: 02/28/20 11:51 Cefazolin Sodium/Dextrose 2 gm (/ Premix) 50 mls @ 100 mls/hr IV Q8H [facility] Last Admin: 02/28/20 15:23 Dose: Not Given Lactated Ringer's (Ringers, Lactated) 1,000 mls @ 75 mls/hr IV ASDIRECTED [facility] Last Admin: 02/29/20 04:17 Dose: 75 mls/hr Iopamidol (Isovue-300 (61%)) 100 ml IVPUSH ONETIME ONE Stop: 02/26/20 00:06 Last Admin: 02/26/20 00:11 Dose: 100 ml Ketorolac Tromethamine (Toradol) 30 mg IV Q6H PRN PRN Reason: Pain (moderate 4-6) Stop: 03/02/20 01:22 Ketorolac Tromethamine (Toradol) 15 mg IVPUSH Q6H [facility] Stop: 03/02/20 07:31 Last Admin: 02/28/20 14:32 Dose: 15 mg Metoprolol Tartrate (Lopressor) 5 mg IVPUSH Q6H PRN PRN Reason: TACHYCARDIA HR >110 Midazolam HCl (Versed 1 Mg/Ml) Confirm Administered Dose 2 mg .ROUTE .STK-MED ONE Stop: 02/28/20 11:50 Neostigmine Methylsulfate (Neostigmine Methylsulfate) Confirm Administered Dose 5 mg .ROUTE .STK-MED ONE Stop: 02/28/20 13:08 Ondansetron HCl (Zofran) 4 mg IV Q4H PRN PRN Reason: Nausea/Vomiting Last Admin: 02/27/20 08:28 Dose: 4 mg Ondansetron HCl (Zofran) Confirm Administered Dose 4 mg .ROUTE .STK-MED ONE Stop: 02/28/20 11:50 Ondansetron HCl (Zofran) 4 mg IVPUSH ONETIME PRN PRN Reason: Nausea/Vomiting Stop: 02/28/20 16:00 Oxycodone HCl (Oxycodone) 5 mg PO Q4H PRN PRN Reason: Pain (moderate 4-6) Propofol (Diprivan 20 Ml) Confirm Administered Dose 200 mg .ROUTE .STK-MED ONE Stop: 02/28/20 11:50 Rocuronium [place] (Zemuron) Confirm Administered Dose 50 mg .ROUTE .STK-MED ONE Stop: 02/28/20 11:50
== END 2020-03-01 09:24 | disposition home or self-care (01) | DRG 337 ==
LOC: JD.ED 21:30 → JD.MS 02-26 01:35
PROVIDERS: ADMIT Surgery; ATTEND Surgery
PROC: 0D9670Z Drainage of Stomach with Drainage Device, Via Natural or Artificial Opening (ICD-10-PCS; principal; 2020-02-26)
PROC: 0DNU4ZZ Release Omentum, Percutaneous Endoscopic Approach (ICD-10-PCS; 2020-02-28)
PROC: 0DN84ZZ Release Small Intestine, Percutaneous Endoscopic Approach (ICD-10-PCS; 2020-02-28)
DX: K56.609 Unspecified intestinal obstruction, unspecified as to partial versus complete obstruction (principal); J44.1 Chronic obstructive pulmonary disease with (acute) exacerbation; J96.10 Chronic respiratory failure, unspecified whether with hypoxia or hypercapnia; E11.9 Type 2 diabetes mellitus without complications; I73.9 Peripheral vascular disease, unspecified; K56.51 Intestinal adhesions [bands], with partial obstruction; J44.9 Chronic obstructive pulmonary disease, unspecified; K40.90 Unilateral inguinal hernia, without obstruction or gangrene, not specified as recurrent; Z66 Do not resuscitate; I71.4 Abdominal aortic aneurysm, without rupture; I10 Essential (primary) hypertension; E11.51 Type 2 diabetes mellitus with diabetic peripheral angiopathy without gangrene; K21.9 Gastro-esophageal reflux disease without esophagitis; N40.0 Benign prostatic hyperplasia without lower urinary tract symptoms; Z88.6 Allergy status to analgesic agent; M19.90 Unspecified osteoarthritis, unspecified site; E86.0 Dehydration; Z79.84 Long term (current) use of oral hypoglycemic drugs; Z85.118 Personal history of other malignant neoplasm of bronchus and lung; Z90.49 Acquired absence of other specified parts of digestive tract; Z79.51 Long term (current) use of inhaled steroids; Z87.891 Personal history of nicotine dependence; Z79.4 Long term (current) use of insulin; Z87.442 Personal history of urinary calculi; Z87.01 Personal history of pneumonia (recurrent); Z79.82 Long term (current) use of aspirin; Z98.890 Other specified postprocedural states; Z79.52 Long term (current) use of systemic steroids; Z79.899 Other long term (current) drug therapy; Z88.8 Allergy status to other drugs, medicaments and biological substances; Z88.1 Allergy status to other antibiotic agents; Z88.5 Allergy status to narcotic agent; Z99.81 Dependence on supplemental oxygen
CPT/HCPCS: 36415 ×2; 71045; 74177; 80053; 83690; 84484; 85007; 85027; 85610; 85730; 93005; 96360; 96361 ×2; 99285; J7030; Q9967; 00840; 74018; 74018-26; 80048; 81003; 82962; 83036; 83605; 83735; 84100; 85025; 94640; 94760; 94761; 97110-GP; 97162-GP; 97165-GO; 97530-GO; A9270-GY; J0330; J0690; J1644; J1650; J1815-GY; J1885; J2001; J2250; J2405; J2704; J2710; J3010; J3475; J3480; J3490; J7120

== ENCOUNTER 2020-09-30 10:22 | Emergency (ER) | payer MEDICARE, BC ==
[2020-09-30] MEDS ORDERED: Albuterol 6.7 GM Inhaler INH ONE (11:04)
--- NOTE | 2020-09-30 11:31 | EDM.PDOC ---
ED HPI GENERAL MEDICAL PROBLEM - General Chief Complaint: Respiratory Problem Stated Complaint: SOB/FEVER Time Seen by Provider: 09/30/20 10:35 Source of Information: Reports: Patient History Limitations: Reports: No Limitations - History of Present Illness INITIAL COMMENTS - FREE TEXT/NARRATIVE: The patient presents with a cough, shortness of breath and temperature. This all started last night with a temp of 100.2. He has a dry cough and he is short of breath at times. He also has some fatigue. He has been very careful about COVID 19 but he had to take his daughter to [place] for surgery and he went into [facility] a few days ago. He has a history of COPD and he wears oxygen at night at times. His oxygen saturations were good here. He quit smoking years ago. He has no chest pain. Onset: Gradual Duration: Day(s): (last night) Severity: Mild Improves with: Reports: None Worsens with: Reports: None Associated Symptoms: Reports: Cough, Fever/Chills, Shortness of Breath. Denies: Chest Pain, Headaches, Nausea/Vomiting - Related Data Allergies Allergy/AdvReac Type Severity Reaction Status Date / Time amoxicillin [From Augmentin] AdvReac Mild Stomach Verified 09/30/20 10:47 Upset cefuroxime AdvReac Mild Stomach Verified 09/30/20 10:47 Upset clavulanic acid AdvReac Mild Stomach Verified 09/30/20 10:47 [From Augmentin] Upset hydrochlorothiazide AdvReac Mild Other Verified 09/30/20 10:47 losartan AdvReac Mild Stomach Verified 09/30/20 10:47 Upset metronidazole AdvReac Mild Stomach Verified 09/30/20 10:47 Upset morphine AdvReac Mild Stomach Verified 09/30/20 10:47 Upset tiotropium AdvReac Mild Stomach Verified 09/30/20 10:47 [From Spiriva with Upset HandiHaler] tramadol AdvReac Mild Stomach Verified 09/30/20 10:47 Upset Home Meds: Home Meds Aspirin [Halfprin] 81 mg PO BID 12/02/17 [History] Budesonide [Pulmicort] 0.5 mg IH BID 12/02/17 [History] Ipratropium [Atrovent HFA] 1 puff INH QID PRN 12/02/17 [History] LORazepam 0.5 mg PO TID PRN 12/02/17 [History] Lisinopril 20 mg PO DAILY 12/02/17 [History] Metoprolol Succinate 50 mg PO DAILY 12/02/17 [History] Prednisone [IJD: Prednisone] 5 mg PO ASDIRECTED 12/02/17 [History] dilTIAZem HCL [Taztia Xt] 360 mg PO QPM 12/02/17 [History] hydroCHLOROthiazide [Hydrochlorothiazide] 25 mg PO DAILY 12/02/17 [History] Arformoterol [Brovana] 2 ml INH BID 06/20/19 [History] Albuterol Sulfate [Proair Hfa] 90 mcg IH DAILY PRN 07/31/19 [History] Ondansetron [Ondansetron ODT] 1 tab PO TID PRN 02/25/20 [History] Tamsulosin [Flomax] 1 cap PO DAILY 02/25/20 [History] sitaGLIPtin Phosphate [Januvia] 2 tab PO DAILY 02/25/20 [History] Azithromycin [Zithromax] 250 mg PO DAILY #6 tab 09/30/20 [Rx] Past Medical History HEENT History: Reports: Other (See Below) Other HEENT History: wears glasses Cardiovascular History: Reports: Aneurysm, Hypertension, PVD Respiratory History: Reports: COPD, Pneumonia, Recurrent Other Respiratory History: nebulizers at home. states he wears oxygen 2 liters nasal cannula sometimes at night at home. 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, Other (See Below) Other Oncologic History: lip Dermatologic History: Reports: None - Infectious Disease History Infectious Disease History: Reports: Chicken Pox, Influenza, Mumps - Past Surgical History HEENT Surgical History: Reports: Other (See Below) Other HEENT Surgeries/Procedures: sinuses removed Cardiovascular Surgical History: Reports: AAA Repair, Other (See Below) Other Cardiovascular Surgeries/Procedures: abdominal anuerysm stents Respiratory Surgical History: Reports: None GI Surgical History: Reports: Appendectomy, Cholecystectomy, Colonoscopy, Hernia, Abdominal, Hernia, Inguinal, Hernia Repair/Other, Small Bowel Male Surgical History: Reports: None Endocrine Surgical History: Reports: None Musculoskeletal Surgical History: Reports: None Oncologic Surgical History: Reports: Other (See Below) Other Oncologic Surgeries/Procedures: left lung tumor removal Dermatological Surgical History: Reports: None Social & Family History - Family History Family Medical History: No Pertinent Family History Cardiac: Reports: Stent - Tobacco Use Tobacco Use Status *Q: Former Tobacco User Used Tobacco, but Quit: Yes Month/Year Tobacco Last Used: 1994 - Caffeine Use Caffeine Use: Reports: Coffee Other Caffeine Use: 2 cups/day Caffeine Use Comment: 3 cups of coffee a day - Recreational Drug Use Recreational Drug Use: No - Living Situation & Occupation Living situation: Reports: , Assisted Living Occupation: Retired ED ROS GENERAL - Review of Systems Review Of Systems: See Below Constitutional: Reports: Fever, Fatigue HEENT: Reports: No Symptoms Respiratory: Reports: Shortness of Breath, Cough Cardiovascular: Reports: No Symptoms Endocrine: Reports: No Symptoms GI/Abdominal: Reports: No Symptoms : Reports: No Symptoms Musculoskeletal: Reports: No Symptoms ED EXAM, GENERAL - Physical Exam Exam: See Below Exam Limited By: No Limitations General Appearance: Alert, No Apparent Distress Ears: Normal External Exam Nose: Normal Inspection Head: Atraumatic, Normocephalic Neck: Normal Inspection Respiratory/Chest: No Respiratory Distress, Wheezing Cardiovascular: Regular Rate, Rhythm, No Edema, No Murmur GI/Abdominal: Soft, Non-Tender, No Organomegaly, No Mass Back Exam: Normal Inspection Extremities: Normal Inspection Neurological: Alert, Oriented, No Motor/Sensory Deficits Course - Vital Signs Last Recorded V/S: Last Vital Signs Temp 97.6 F 09/30/20 11:42 Pulse 75 09/30/20 11:42 Resp 18 09/30/20 11:42 BP 143/61 H 09/30/20 11:42 Pulse Ox 93 L 09/30/20 11:42 - Orders/Labs/Meds Orders: Active Orders 24 hr Category Date Time Status Cardiac Monitoring [RC] . DIRECTED Care 09/30/20 11:02 Active RT Post Treatment Assessment [RC] Click to Edit Care 09/30/20 11:04 Active RT Pre-Treatment Assessment [RC] Click to Edit Care 09/30/20 11:04 Active Labs: Laboratory Tests 1209/30/20 09/30/20 Range/Units 11:18 11:18 11:18 WBC 14.31 H (4.23-9.07) K/mm3 RBC 4.46 L (4.63-6.08) M/mm3 Hgb 13.3 L (13.7-17.5) gm/dl Hct 40.0 L (40.1-51.0) % MCV 89.7 (79.0-92.2) fl MCH 29.8 (25.7-32.2) pg MCHC 33.3 (32.2-35.5) g/dl RDW Std Deviation 42.2 (35.1-43.9) fL Plt Count 210 (163-337) K/mm3 MPV 10.2 (9.4-12.3) fl Neut % (Auto) 83.8 H (34.0-67.9) % Lymph % (Auto) 6.6 L (21.8-53.1) % Whitman % (Auto) 9.1 (5.3-12.2) % Eos % (Auto) 0.2 L (0.8-7.0) Baso % (Auto) 0.1 (0.1-1.2) % Neut # (Auto) 11.99 H (1.78-5.38) K/mm3 Lymph # (Auto) 0.94 L (1.32-3.57) K/mm3 Whitman # (Auto) 1.30 H (0.30-0.82) K/mm3 Eos # (Auto) 0.03 L (0.04-0.54) K/mm3 Baso # (Auto) 0.02 (0.01-0.08) K/mm3 Manual Slide Review Abnormal smear Sodium 137 (136-145) mEq/L Potassium 3.7 (3.5-5.1) mEq/L Chloride 102 (98-107) mEq/L Carbon Dioxide 28 (21-32) mEq/L Anion Gap 10.7 (5-15) BUN 19 H (7-18) mg/dL Creatinine 1.3 (0.7-1.3) mg/dL Est Cr Clr Drug Dosing 41.05 mL/min Estimated GFR (MDRD) 52 (>60) mL/min BUN/Creatinine Ratio 14.6 (14-18) Glucose 148 H (83-115) mg/dL Lactic Acid 1.7 (0.4-2.0) mmol/L Calcium 9.2 (8.5-10.1) mg/dL Total Bilirubin 1.2 H (0.2-1.0) mg/dL AST 11 L (15-37) U/L ALT 22 (16-63) U/L Alkaline Phosphatase 61 (46-116) U/L C-Reactive Protein 2.3 H* (<1.0) mg/dL Total Protein 7.0 (6.4-8.2) g/dl Albumin 3.6 (3.4-5.0) g/dl Globulin 3.4 gm/dL Albumin/Globulin Ratio 1.1 (1-2) Influenza Type A RNA (NEGATIVE) Influenza Type B RNA (NEGATIVE) SARS-CoV-2 RNA (EMIL) (NEGATIVE) 09/30/20 Range/Units 11:38 WBC (4.23-9.07) K/mm3 RBC (4.63-6.08) M/mm3 Hgb (13.7-17.5) gm/dl Hct (40.1-51.0) % MCV (79.0-92.2) fl MCH (25.7-32.2) pg MCHC (32.2-35.5) g/dl RDW Std Deviation (35.1-43.9) fL Plt Count (163-337) K/mm3 MPV (9.4-12.3) fl Neut % (Auto) (34.0-67.9) % Lymph % (Auto) (21.8-53.1) % Whitman % (Auto) (5.3-12.2) % Eos % (Auto) (0.8-7.0) Baso % (Auto) (0.1-1.2) % Neut # (Auto) (1.78-5.38) K/mm3 Lymph # (Auto) (1.32-3.57) K/mm3 Whitman # (Auto) (0.30-0.82) K/mm3 Eos # (Auto) (0.04-0.54) K/mm3 Baso # (Auto) (0.01-0.08) K/mm3 Manual Slide Review Sodium (136-145) mEq/L Potassium (3.5-5.1) mEq/L Chloride (98-107) mEq/L Carbon Dioxide (21-32) mEq/L Anion Gap (5-15) BUN (7-18) mg/dL Creatinine (0.7-1.3) mg/dL Est Cr Clr Drug Dosing mL/min Estimated GFR (MDRD) (>60) mL/min BUN/Creatinine Ratio (14-18) Glucose (83-115) mg/dL Lactic Acid (0.4-2.0) mmol/L Calcium (8.5-10.1) mg/dL Total Bilirubin (0.2-1.0) mg/dL AST (15-37) U/L ALT (16-63) U/L Alkaline Phosphatase (46-116) U/L C-Reactive Protein (<1.0) mg/dL Total Protein (6.4-8.2) g/dl Albumin (3.4-5.0) g/dl Globulin gm/dL Albumin/Globulin Ratio (1-2) Influenza Type A RNA Negative (NEGATIVE) Influenza Type B RNA Negative (NEGATIVE) SARS-CoV-2 RNA (EMIL) Negative (NEGATIVE) Meds: Medications Discontinued Medications Generic Name Dose Route Start Last Admin Trade Name Freq PRN Reason Stop Dose Admin Albuterol 0 gm 09/30/20 11:04 09/30/20 11:51 Proventil Hfa INH 09/30/20 11:05 2 puff ONETIME ONE Administration - Re-Assessments/Exams Free Text/Narrative Re-Assessment/Exam: 09/30/20 11:32 I ordered labs, COVID 19, CXR and albuterol 2 puffs. 09/30/20 12:52 His CXR looks good. His WBC was elevated at 14.31. His glucose was elevated at 148. His total bili was elevated at 1.2. His CRP is elevated at 2.3 His influenza and COVID 19 are negative. I feel he has bronchitis. I will get him on some azithromax. Departure - Departure Time of Disposition: 12:55 Disposition: Home, Self-Care 01 Condition: Good Clinical Impression: Bronchitis - Discharge Information *PRESCRIPTION DRUG MONITORING PROGRAM REVIEWED*: Not Applicable *COPY OF PRESCRIPTION DRUG MONITORING REPORT IN PATIENT CLEMENTE: Not Applicable Prescriptions: Azithromycin [Zithromax] 250 mg PO DAILY #6 tab Referrals: Ryley Fernandes PA-C [Primary Care Provider] - 1 Week Forms: ED Department Discharge Additional Instructions: Keep taking your medications. Take zithromax 2 pills on day 1 and 1 pill on day 2 through 5. Please return if you are worse. Follow up with your provider within a week. Sepsis Event Note (ED) - Evaluation Sepsis Screening Result: No Definite Risk - Focused Exam Vital Signs: Vital Signs Temp Pulse Resp BP Pulse Ox 09/30/20 11:42 97.6 F 75 18 143/61 H 93 L 09/30/20 10:37 96.6 F L 83 20 165/74 H 95 - My Orders Last 24 Hours: My Active Orders 09/30/20 11:02 Cardiac Monitoring [RC] . DIRECTED 09/30/20 11:04 RT Post Treatment Assessment [RC] Click to Edit RT Pre-Treatment Assessment [RC] Click to Edit - Assessment/Plan Last 24 Hours: My Active Orders 09/30/20 11:02 Cardiac Monitoring [RC] . DIRECTED 09/30/20 11:04 RT Post Treatment Assessment [RC] Click to Edit RT Pre-Treatment Assessment [RC] Click to Edit
--- NOTE | 2020-09-30 11:46 | CR ---
Chest: Portable view of the chest was obtained. Comparison: Prior chest x-ray of 02/26/20. Findings: Heart and mediastinum: Heart appears normal for portable technique. Tortuous thoracic aorta is noted. No mediastinal abnormality is seen. Lungs: Lung markings are mildly increased which appear chronic. No acute parenchymal change is appreciated. No pleural effusions are seen. Osseous: No discrete osseous abnormality is appreciated. Impression: 1. Findings as noted above. 2. Nothing acute is suggested. Diagnostic code #2
[2020-09-30 12:19] LABS: CORONAVIRUS COVID-19 NAA NEGATIVE (NEGATIVE)
== END 2020-09-30 13:16 | disposition home or self-care (01) ==
LOC: JD.ED 10:22
DX: J40 Bronchitis, not specified as acute or chronic (principal); N40.0 Benign prostatic hyperplasia without lower urinary tract symptoms; E11.51 Type 2 diabetes mellitus with diabetic peripheral angiopathy without gangrene; M19.90 Unspecified osteoarthritis, unspecified site; I10 Essential (primary) hypertension; Z87.891 Personal history of nicotine dependence; Z20.828 Contact with and (suspected) exposure to other viral communicable diseases; Z88.1 Allergy status to other antibiotic agents; Z88.8 Allergy status to other drugs, medicaments and biological substances; Z88.5 Allergy status to narcotic agent; Z79.82 Long term (current) use of aspirin; Z79.84 Long term (current) use of oral hypoglycemic drugs; Z79.899 Other long term (current) drug therapy
CPT/HCPCS: 0240U; 36415; 71045; 71045-26; 80053; 83605; 85025; 86140; 99283; 99285-25; A9270-GY

== ENCOUNTER 2021-09-28 13:52 | Emergency (ER) | payer MEDICARE, BC ==
[2021-09-28] MEDS ORDERED: Sodium Chloride 0.9% 10 ML Syringe FLUSH PRN (15:44)
--- NOTE | 2021-09-28 16:09 | CR ---
Chest: Frontal view of the chest was obtained. Comparison: Prior chest x-ray of 12/31/20. Heart size is normal. Tortuous thoracic aorta is seen. Lungs are hyperinflated compatible with emphysematous change. No acute parenchymal change is appreciated. Surgical clip is seen within the left upper chest. Previous left-sided rib resection is seen within the fifth and sixth ribs. Impression: 1. Emphysematous change. Prior rib resections. 2. Nothing acute is seen on frontal chest x-ray. Diagnostic code #2
[2021-09-28 17:15] LABS: CORONAVIRUS COVID-19 NAA NEGATIVE (NEGATIVE)
[2021-09-28] MEDS ORDERED: Albuterol/Ipratropium 3.0-0.5 MG/3 ML Neb Soln NEB ONE (17:44)
--- NOTE | 2021-09-28 17:54 | EDM.PDOC ---
ED HPI GENERAL MEDICAL PROBLEM - General Chief Complaint: Respiratory Problem Stated Complaint: SINUS\COUGH Time Seen by Provider: 09/28/21 15:44 Source of Information: Reports: Patient, RN Notes Reviewed History Limitations: Reports: No Limitations - History of Present Illness INITIAL COMMENTS - FREE TEXT/NARRATIVE: Patient is an 85-year-old male presenting to the emergency department with complaints of sinus congestion, nasal drainage, postnasal drip, cough, shortness of breath, weakness, and fatigue. Reports symptoms have been going on for approximately 1 week. He was evaluated in the clinic 4 days ago and started on Levaquin and prednisone for COPD exacerbation. He reports that the prednisone made him very shaky so he stopped taking it. He feels his sinus congestion is his biggest problem at this time. It causes him to cough which he has a hard time recovering from. Denies any significant chest pain. He said no vomiting or diarrhea. Patient has been vaccinated against Covid and was also tested this morning using a rapid test and found to be negative. He does have oxygen at home that he may use as needed. Since onset of illness, he has been wearing 1 L of oxygen by nasal cannula to keep his saturations above 90. Normal oxygen saturation for him on room air is 93%. He does have DuoNeb breathing treatments at home, but states he can only use them twice daily as his insurance will not approve them for him to use more often than that. He does feel that these treatments improve his symptoms. Primary care provider is MELISSA Sorensen. - Related Data Allergies Allergy/AdvReac Type Severity Reaction Status Date / Time amoxicillin [From Augmentin] AdvReac Mild Stomach Verified 09/30/20 10:47 Upset cefuroxime AdvReac Mild Stomach Verified 09/30/20 10:47 Upset clavulanic acid AdvReac Mild Stomach Verified 09/30/20 10:47 [From Augmentin] Upset hydrochlorothiazide AdvReac Mild Other Verified 09/30/20 10:47 losartan AdvReac Mild Stomach Verified 09/30/20 10:47 Upset metronidazole AdvReac Mild Stomach Verified 09/30/20 10:47 Upset morphine AdvReac Mild Stomach Verified 09/30/20 10:47 Upset tiotropium AdvReac Mild Stomach Verified 09/30/20 10:47 [From Spiriva with Upset HandiHaler] tramadol AdvReac Mild Stomach Verified 09/30/20 10:47 Upset Home Meds: Home Meds Aspirin [Halfprin] 81 mg PO BID 12/02/17 [History] Budesonide [Pulmicort] 0.5 mg IH BID 12/02/17 [History] Ipratropium [Atrovent HFA] 1 puff INH QID PRN 12/02/17 [History] LORazepam 0.5 mg PO TID PRN 12/02/17 [History] Lisinopril 20 mg PO DAILY 12/02/17 [History] Metoprolol Succinate 50 mg PO DAILY 12/02/17 [History] Prednisone [IJD: Prednisone] 5 mg PO ASDIRECTED 12/02/17 [History] dilTIAZem HCL [Taztia Xt] 360 mg PO QPM 12/02/17 [History] hydroCHLOROthiazide [Hydrochlorothiazide] 25 mg PO DAILY 12/02/17 [History] Arformoterol [Brovana] 2 ml INH BID 06/20/19 [History] Albuterol Sulfate [Proair Hfa] 90 mcg IH DAILY PRN 07/31/19 [History] Ondansetron [Ondansetron ODT] 1 tab PO TID PRN 02/25/20 [History] Tamsulosin [Flomax] 1 cap PO DAILY 02/25/20 [History] sitaGLIPtin Phosphate [Januvia] 2 tab PO DAILY 02/25/20 [History] Azithromycin [Zithromax] 250 mg PO DAILY #6 tab 09/30/20 [Rx] Albuterol/Ipratropium [DuoNeb 3.0-0.5 MG/3 ML] 3 ml .XX Q4H PRN #14 ml 09/28/21 [Rx] Past Medical History HEENT History: Reports: Other (See Below) Other HEENT History: wears glasses Cardiovascular History: Reports: Aneurysm, Hypertension, PVD Respiratory History: Reports: COPD, Pneumonia, Recurrent Other Respiratory History: nebulizers at home. states he wears oxygen 2 liters nasal cannula sometimes at night at home. 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, Other (See Below) Other Oncologic History: lip Dermatologic History: Reports: None - Infectious Disease History Infectious Disease History: Reports: Chicken Pox, Influenza, Mumps - Past Surgical History HEENT Surgical History: Reports: Other (See Below) Other HEENT Surgeries/Procedures: sinuses removed Cardiovascular Surgical History: Reports: AAA Repair, Other (See Below) Other Cardiovascular Surgeries/Procedures: abdominal anuerysm stents GI Surgical History: Reports: Appendectomy, Cholecystectomy, Colonoscopy, Hernia, Abdominal, Hernia, Inguinal, Hernia Repair/Other, Small Bowel Oncologic Surgical History: Reports: Other (See Below) Other Oncologic Surgeries/Procedures: left lung tumor removal Social & Family History - Family History Family Medical History: No Pertinent Family History Cardiac: Reports: Stent - Tobacco Use Tobacco Use Status *Q: Former Tobacco User Used Tobacco, but Quit: Yes Month/Year Tobacco Last Used: 1989 - Caffeine Use Caffeine Use: Reports: Coffee Other Caffeine Use: 2 cups/day Caffeine Use Comment: 3 cups of coffee a day - Recreational Drug Use Recreational Drug Use: No - Living Situation & Occupation Living situation: Reports: , Assisted Living Occupation: Retired ED ROS GENERAL - Review of Systems Review Of Systems: See Below Constitutional: Reports: Weakness, Fatigue. Denies: Fever, Chills HEENT: Reports: Sinus Problem (Congestion and drainage.) Respiratory: Reports: Shortness of Breath, Wheezing, Cough, Sputum. Denies: Pleuritic Chest Pain Cardiovascular: Reports: No Symptoms. Denies: Chest Pain Endocrine: Reports: No Symptoms GI/Abdominal: Reports: No Symptoms : Reports: No Symptoms Musculoskeletal: Reports: No Symptoms Skin: Reports: No Symptoms Neurological: Reports: No Symptoms Psychiatric: Reports: No Symptoms Hematologic/Lymphatic: Reports: No Symptoms Immunologic: Reports: No Symptoms ED EXAM, GENERAL - Physical Exam Exam: See Below Exam Limited By: No Limitations General Appearance: Alert, WD/WN, No Apparent Distress Respiratory/Chest: No Respiratory Distress, No Accessory Muscle Use, Chest Non-T josh, Decreased Breath Sounds, Other (Scattered expiratory wheeze throughout.) Cardiovascular: Normal Peripheral Pulses, Regular Rate, Rhythm, No Edema, No Gallop, No JVD, No Murmur, No Rub GI/Abdominal: Normal Bowel Sounds, Soft, Non-Tender, No Organomegaly, No Distention, No Abnormal Bruit, No Mass Neurological: Alert, Oriented, Normal Cognition, Normal Gait, No Motor/Sensory Deficits Psychiatric: Normal Affect, Normal Mood Skin Exam: Warm, Dry, Intact, Normal Color, No Rash #1 Interpretation EKG Date: 09/28/21 Time: 17:55 Rhythm: NSR Rate (Beats/Min): 88 [place]: Normal P-Wave: Present QRS: Normal ST-T: Normal QT: Normal Course - Vital Signs Last Recorded V/S: Last Vital Signs Temp 98.4 F 09/28/21 18:50 Pulse 90 09/28/21 18:50 Resp 18 09/28/21 18:50 BP 139/119 H 09/28/21 18:50 Pulse Ox 94 L 09/28/21 18:50 - Orders/Labs/Meds Labs: Laboratory Tests 09/28/21 09/28/21 09/28/21 Range/Units 16:20 16:20 16:20 WBC 5.99 (4.23-9.07) K/mm3 RBC 4.70 (4.63-6.08) M/mm3 Hgb 13.7 (13.7-17.5) gm/dl Hct 41.6 (40.1-51.0) % MCV 88.5 (79.0-92.2) fl MCH 29.1 (25.7-32.2) pg MCHC 32.9 (32.2-35.5) g/dl RDW Std Deviation 42.6 (35.1-43.9) fL Plt Count 255 (163-337) K/mm3 MPV 9.7 (9.4-12.3) fl Neut % (Auto) 61.4 (34.0-67.9) % Lymph % (Auto) 18.0 L (21.8-53.1) % [place] % (Auto) 17.4 H (5.3-12.2) % Eos % (Auto) 1.5 (0.8-7.0) Baso % (Auto) 0.5 (0.1-1.2) % Neut # (Auto) 3.68 (1.78-5.38) K/mm3 Lymph # (Auto) 1.08 L (1.32-3.57) K/mm3 [place] # (Auto) 1.04 H (0.30-0.82) K/mm3 Eos # (Auto) 0.09 (0.04-0.54) K/mm3 Baso # (Auto) 0.03 (0.01-0.08) K/mm3 Sodium 136 (136-145) mEq/L Potassium 3.3 L (3.5-5.1) mEq/L Chloride 99 (98-107) mEq/L Carbon Dioxide 28 (21-32) mEq/L Anion Gap 12.3 (5-15) BUN 19 H (7-18) mg/dL Creatinine 1.2 (0.7-1.3) mg/dL Est Cr Clr Drug Dosing 43.37 mL/min Estimated GFR (MDRD) 57 (>60) mL/min BUN/Creatinine Ratio 15.8 (14-18) Glucose 164 H (70-99) mg/dL Calcium 9.4 (8.5-10.1) mg/dL Total Bilirubin 0.6 (0.2-1.0) mg/dL AST 15 (15-37) U/L ALT 29 (16-63) U/L Alkaline Phosphatase 67 (46-116) U/L Troponin I < 0.017 (0.00-0.056) ng/mL C-Reactive Protein 0.7 (<1.0) mg/dL NT-Pro-B Natriuret Pep 281 (0-450) pg/mL Total Protein 6.9 (6.4-8.2) g/dl Albumin 3.3 L (3.4-5.0) g/dl Globulin 3.6 gm/dL Albumin/Globulin Ratio 0.9 L (1-2) Influenza Type A RNA (NEGATIVE) Influenza Type B RNA (NEGATIVE) SARS-CoV-2 RNA (EMIL) (NEGATIVE) 09/28/21 Range/Units 16:35 WBC (4.23-9.07) K/mm3 RBC (4.63-6.08) M/mm3 Hgb (13.7-17.5) gm/dl Hct (40.1-51.0) % MCV (79.0-92.2) fl MCH (25.7-32.2) pg MCHC (32.2-35.5) g/dl RDW Std Deviation (35.1-43.9) fL Plt Count (163-337) K/mm3 MPV (9.4-12.3) fl Neut % (Auto) (34.0-67.9) % Lymph % (Auto) (21.8-53.1) % [place] % (Auto) (5.3-12.2) % Eos % (Auto) (0.8-7.0) Baso % (Auto) (0.1-1.2) % Neut # (Auto) (1.78-5.38) K/mm3 Lymph # (Auto) (1.32-3.57) K/mm3 [place] # (Auto) (0.30-0.82) K/mm3 Eos # (Auto) (0.04-0.54) K/mm3 Baso # (Auto) (0.01-0.08) K/mm3 Sodium (136-145) mEq/L Potassium (3.5-5.1) mEq/L Chloride (98-107) mEq/L Carbon Dioxide (21-32) mEq/L Anion Gap (5-15) BUN (7-18) mg/dL Creatinine (0.7-1.3) mg/dL Est Cr Clr Drug Dosing mL/min Estimated GFR (MDRD) (>60) mL/min BUN/Creatinine Ratio (14-18) Glucose (70-99) mg/dL Calcium (8.5-10.1) mg/dL Total Bilirubin (0.2-1.0) mg/dL AST (15-37) U/L ALT (16-63) U/L Alkaline Phosphatase (46-116) U/L Troponin I (0.00-0.056) ng/mL C-Reactive Protein (<1.0) mg/dL NT-Pro-B Natriuret Pep (0-450) pg/mL Total Protein (6.4-8.2) g/dl Albumin (3.4-5.0) g/dl Globulin gm/dL Albumin/Globulin Ratio (1-2) Influenza Type A RNA Negative (NEGATIVE) Influenza Type B RNA Negative (NEGATIVE) SARS-CoV-2 RNA (EMIL) Negative (NEGATIVE) Meds: Medications Discontinued Medications Generic Name Dose Route Start Last Admin Trade Name Freq PRN Reason Stop Dose Admin Albuterol/Ipratropium 3 ml 09/28/21 17:44 09/28/21 18:04 Albuterol/Ipratropium 3.0-0.5 Mg/3 Ml Neb Soln NEB 09/28/21 17:45 3 ml ONETIME ONE Administration Sodium Chloride 10 ml 09/28/21 15:44 09/28/21 16:22 Sodium Chloride 0.9% 10 Ml Syringe FLUSH 10 ml ASDIRECTED PRN Administration Keep Vein Open - Re-Assessments/Exams Free Text/Narrative Re-Assessment/Exam: Patient is an 85-year-old male presenting to the emergency department for evaluation of a 1 week history of sinus congestion with nasal drainage, cough, shortness of breath, weakness and fatigue. He was prescribed Levaquin and prednisone for COPD exacerbation. Reports he became shaky with the prednisone so he quit taking it. He does have duo nebs at home which she states helps, however he can only use them twice a day as insurance would not pay for more than this. Work-up was ordered by standing order during the triage process. Blood work is unremarkable. He is Covid and influenza negative. Chest x-ray shows emphysematous change but no acute abnormalities. Patient is maintaining oxygen saturations in the low 90s on 1 L of oxygen by nasal cannula. On exam, he does have scattered diffuse expiratory wheezing with diminished lung sounds. Exam is otherwise unremarkable. EKG is pending. We will give him a DuoNeb breathing treatment here in the ER. 09/28/21 18:21 Patient did have some improvement after the albuterol breathing treatment. Discussed patient is likely suffering from COPD exacerbation. Recommend that he decrease his prednisone to 10 mg twice daily and see if this improves the side effects but still gives him some anti-inflammatory benefits. He should take Levaquin with food as it somewhat upsets his stomach. Recommend taking Mucinex 400 mg every 4-6 hours for nasal congestion and sinus drainage as well as Flonase nasal spray. I will send an additional 14 ampoules of the DuoNeb breathing treatments that he may use it 4 times daily instead of twice daily during this acute exacerbation. He should follow-up with his primary care provider tomorrow or the next day to ensure that he continues to improve. Discussed return precautions. Discharge instructions as documented. Departure - Departure Time of Disposition: 17:54 Disposition: Home, Self-Care 01 Condition: Good Clinical Impression: COPD exacerbation - Discharge Information *PRESCRIPTION DRUG MONITORING PROGRAM REVIEWED*: No *COPY OF PRESCRIPTION DRUG MONITORING REPORT IN PATIENT CLEMENTE: No Prescriptions: Albuterol/Ipratropium [DuoNeb 3.0-0.5 MG/3 ML] 3 ml .XX Q4H PRN #14 ml PRN Reason: Shortness Of Breath Instructions: Chronic Obstructive Pulmonary Disease Exacerbation Referrals: Ryley Fernandes PA-C [Primary Care Provider] - Forms: ED Department Discharge Additional Instructions: Take Mucinex 400 mg every 4 hours for sinus drainage. Use Flonase nasal spray 2 sprays each nostril daily. Take prednisone 10 mg twice daily for the next 5 days. You may break the tablets you have in half. Continue to use 1 to 2 L of oxygen as needed to keep your saturations between 90 and 94%. Take your Levaquin with food. Contact primary care provider tomorrow to set up follow-up visit for either tomorrow or the next day. If you should experience new or worsening symptoms, please return to the emergency department for reevaluation. Sepsis Event Note (ED) - Evaluation Sepsis Screening Result: No Definite Risk
== END 2021-09-28 18:55 | disposition home or self-care (01) ==
LOC: JD.ED 13:52
DX: J44.1 Chronic obstructive pulmonary disease with (acute) exacerbation (principal); I10 Essential (primary) hypertension; E11.9 Type 2 diabetes mellitus without complications; K21.9 Gastro-esophageal reflux disease without esophagitis; N40.0 Benign prostatic hyperplasia without lower urinary tract symptoms; Z87.891 Personal history of nicotine dependence; Z88.0 Allergy status to penicillin; Z88.1 Allergy status to other antibiotic agents; Z88.5 Allergy status to narcotic agent; Z88.8 Allergy status to other drugs, medicaments and biological substances; Z79.82 Long term (current) use of aspirin; Z20.822 Contact with and (suspected) exposure to COVID-19
CPT/HCPCS: 0240U; 36415; 71046; 80053; 83880; 84484; 85025; 86140; 94640; 99285; J7620-GY

== ENCOUNTER 2021-11-23 09:46 | Inpatient (IN) | payer MEDICARE, BC ==
[2021-11-23] MEDS ORDERED: Sodium Chloride 0.9% 1,000 ML IV ONE (10:22)
[2021-11-23] MEDS ORDERED: Ondansetron 4 MG/2 ML SDV IVPUSH ONE (10:22)
[2021-11-23] MEDS ORDERED: Sodium Chloride 0.9% 10 ML Syringe FLUSH PRN (10:23)
[2021-11-23] MEDS ORDERED: methylPREDNISolone Sodium Succinate 125 MG/2 ML SDV IVPUSH ONE (10:25)
[2021-11-23] MEDS ORDERED: Albuterol/Ipratropium 3.0-0.5 MG/3 ML Neb Soln NEB ONE (10:27)
[2021-11-23 11:39] LABS: CORONAVIRUS COVID-19 NAA NEGATIVE (NEGATIVE)
[2021-11-23] MEDS ORDERED: Albuterol/Ipratropium 3.0-0.5 MG/3 ML Neb Soln NEB PRN (15:24)
[2021-11-23] MEDS ORDERED: Albuterol 0.083% 2.5 MG/3 ML Neb Soln NEB PRN (15:24)
[2021-11-23] MEDS ORDERED: Albuterol 6.7 GM Inhaler INH PRN ×2 (16:16→18:04)
[2021-11-23] MEDS: methylPREDNISolone Sodium Succinate 40 MG/1 ML SDV IVPUSH SCH ×2 (16:36→23:19)
[2021-11-23] MEDS: Sodium Chloride 0.9% 1,000 ML IV SCH (16:37)
[2021-11-23] MEDS: Insulin Lispro 100 Unit/ML 3 ML KwikPen SUBCUT SCH ×2 (17:43→20:42)
[2021-11-23] MEDS: Diltiazem 180 MG Cap.CD PO SCH (17:44)
[2021-11-23] MEDS: Aspirin 81 MG Tab.EC PO SCH (20:42)
[2021-11-23] MEDS ORDERED: traZODone 50 MG Tab PO ONE (22:16)
[2021-11-24] MEDS: Sodium Chloride 0.9% 1,000 ML IV SCH ×2 (02:21→10:30)
[2021-11-24 07:03] LABS: HEMOGLOBIN A1C 7.8 %
[2021-11-24] MEDS: Insulin Lispro 100 Unit/ML 3 ML KwikPen SUBCUT SCH ×4 (08:23→22:07)
[2021-11-24] MEDS: Metoprolol Succinate 50 MG Tab.ER PO SCH (08:24)
[2021-11-24] MEDS: Enoxaparin 40 MG/0.4 ML Syringe SUBCUT SCH (08:24)
[2021-11-24] MEDS: Aspirin 81 MG Tab.EC PO SCH ×2 (08:24→22:03)
[2021-11-24] MEDS: Tamsulosin 0.4 MG Cap.ER PO SCH (08:24)
[2021-11-24] MEDS: methylPREDNISolone Sodium Succinate 40 MG/1 ML SDV IVPUSH SCH ×2 (08:24→17:08)
[2021-11-24] MEDS: Lisinopril 20 MG Tab PO SCH (08:25)
[2021-11-24] MEDS ORDERED: Albuterol/Ipratropium 3.0-0.5 MG/3 ML Neb Soln NEB PRN (10:09)
[2021-11-24] MEDS ORDERED: Temazepam 7.5 MG Cap PO PRN (10:11)
[2021-11-24] MEDS ORDERED: Docusate Sodium 100 MG Cap PO ONE (10:14)
[2021-11-24] MEDS: Hydrochlorothiazide 25 MG Tab PO SCH (11:19)
[2021-11-24] MEDS: Diltiazem 180 MG Cap.CD PO SCH (17:11)
[2021-11-24] MEDS: Pantoprazole 40 MG Tab.CR PO SCH (22:02)
[2021-11-24] MEDS: LORazepam 0.5 MG Tab PO PRN (22:03)
[2021-11-25] MEDS: methylPREDNISolone Sodium Succinate 40 MG/1 ML SDV IVPUSH SCH ×3 (01:24→17:39)
[2021-11-25] MEDS: Insulin Lispro 100 Unit/ML 3 ML KwikPen SUBCUT SCH ×4 (10:37→22:01)
[2021-11-25] MEDS: Aspirin 81 MG Tab.EC PO SCH ×2 (10:40→22:00)
[2021-11-25] MEDS: Enoxaparin 40 MG/0.4 ML Syringe SUBCUT SCH (10:41)
[2021-11-25] MEDS: Tamsulosin 0.4 MG Cap.ER PO SCH (10:42)
[2021-11-25] MEDS: Hydrochlorothiazide 25 MG Tab PO SCH (10:42)
[2021-11-25] MEDS: Lisinopril 20 MG Tab PO SCH (10:43)
[2021-11-25] MEDS: Metoprolol Succinate 50 MG Tab.ER PO SCH (10:43)
[2021-11-25] MEDS: Pantoprazole 40 MG Tab.CR PO SCH ×2 (10:54→21:59)
[2021-11-25] MEDS: Sodium Chloride 0.9% 1,000 ML IV SCH (13:23)
[2021-11-25] MEDS ORDERED: Budesonide 0.5 MG/2 ML Neb Susp INH SCH (14:00)
[2021-11-25] MEDS ORDERED: Arformoterol 15 MCG/2 ML Neb Soln INH SCH (14:00)
[2021-11-25] MEDS: Arformoterol 15 MCG/2 ML Neb Soln INH SCH (17:05)
[2021-11-25] MEDS: Budesonide 0.5 MG/2 ML Neb Susp INH SCH (17:06)
[2021-11-25] MEDS: Diltiazem 180 MG Cap.CD PO SCH (17:39)
[2021-11-25] MEDS: LORazepam 0.5 MG Tab PO PRN (22:00)
[2021-11-26] MEDS: methylPREDNISolone Sodium Succinate 40 MG/1 ML SDV IVPUSH SCH ×2 (01:10→08:17)
[2021-11-26] MEDS: Arformoterol 15 MCG/2 ML Neb Soln INH SCH (06:00)
[2021-11-26] MEDS: Budesonide 0.5 MG/2 ML Neb Susp INH SCH (06:00)
[2021-11-26] MEDS: Hydrochlorothiazide 25 MG Tab PO SCH (08:15)
[2021-11-26] MEDS: Tamsulosin 0.4 MG Cap.ER PO SCH (08:15)
[2021-11-26] MEDS: Pantoprazole 40 MG Tab.CR PO SCH (08:15)
[2021-11-26] MEDS: Lisinopril 20 MG Tab PO SCH (08:15)
[2021-11-26] MEDS: Aspirin 81 MG Tab.EC PO SCH (08:15)
[2021-11-26] MEDS: Metoprolol Succinate 50 MG Tab.ER PO SCH (08:16)
[2021-11-26] MEDS: Enoxaparin 40 MG/0.4 ML Syringe SUBCUT SCH (08:16)
[2021-11-26] MEDS: Insulin Lispro 100 Unit/ML 3 ML KwikPen SUBCUT SCH ×2 (08:17→12:21)
[2021-11-26] MEDS: Potassium Chloride 10 MEQ in Premix Bag 1 BAG IV SCH ×4 (09:25→12:47)
[2021-11-26] MEDS ORDERED: Potassium Chloride 20 MEQ Tab.ER PO ONE (13:41)
== END 2021-11-26 15:04 | disposition home or self-care (01) | DRG 202 ==
LOC: JD.ED 09:46 → JD.MS 13:00
PROVIDERS: ADMIT Emergency Medicine; ATTEND Family Medicine
DX: J20.5 Acute bronchitis due to respiratory syncytial virus (principal); K56.609 Unspecified intestinal obstruction, unspecified as to partial versus complete obstruction; B97.4 Respiratory syncytial virus as the cause of diseases classified elsewhere; J44.0 Chronic obstructive pulmonary disease with (acute) lower respiratory infection; J44.1 Chronic obstructive pulmonary disease with (acute) exacerbation; Z97.3 Presence of spectacles and contact lenses; N40.0 Benign prostatic hyperplasia without lower urinary tract symptoms; I10 Essential (primary) hypertension; I73.9 Peripheral vascular disease, unspecified; K21.9 Gastro-esophageal reflux disease without esophagitis; Z66 Do not resuscitate; E11.9 Type 2 diabetes mellitus without complications; Z85.118 Personal history of other malignant neoplasm of bronchus and lung; Z85.819 Personal history of malignant neoplasm of unspecified site of lip, oral cavity, and pharynx; Z87.01 Personal history of pneumonia (recurrent); Z87.442 Personal history of urinary calculi; Z79.4 Long term (current) use of insulin; Z87.19 Personal history of other diseases of the digestive system; Z98.890 Other specified postprocedural states; Z90.89 Acquired absence of other organs; Z90.49 Acquired absence of other specified parts of digestive tract; Z79.82 Long term (current) use of aspirin; Z99.81 Dependence on supplemental oxygen; Z79.51 Long term (current) use of inhaled steroids; Z79.52 Long term (current) use of systemic steroids; Z79.899 Other long term (current) drug therapy; Z88.1 Allergy status to other antibiotic agents; Z88.8 Allergy status to other drugs, medicaments and biological substances; Z20.822 Contact with and (suspected) exposure to COVID-19
CPT/HCPCS: 0241U; 36415; 71045; 71045-26; 74176; 74176-26; 74250; 74250-26; 80053; 82947; 83036; 83735; 84484; 85025; 93005; 94640; 94760; 94761; 96374; 96375; 97116-GP; 97161-GP; 99285-25; A9270-GY; J1650; J1815; J2405; J2920; J2930; J3480; J7030; J7620-GY

== ENCOUNTER 2022-01-29 16:42 | Inpatient (IN) | payer MEDICARE, BC ==
[2022-01-29] MEDS: Sodium Chloride 0.9% 10 ML Syringe FLUSH PRN ×2 (17:00→18:07)
[2022-01-29] MEDS ORDERED: Sodium Chloride 0.9% 1,000 ML IV STA (17:42)
[2022-01-29] MEDS ORDERED: Iopamidol 612 MG/ML 50 ML SDV IVPUSH ONE (17:45)
[2022-01-29] MEDS ORDERED: Iopamidol 612 MG/ML 100 ML Bottle IVPUSH ONE (17:45)
[2022-01-29 18:01] LABS: CORONAVIRUS COVID-19 NAA NEGATIVE (NEGATIVE)
[2022-01-29] MEDS ORDERED: Famotidine 20 MG Tab PO ONE (19:06)
[2022-01-29] MEDS ORDERED: Ondansetron 4 MG/2 ML SDV IVPUSH ONE ×2 (19:06→21:55)
[2022-01-29] MEDS ORDERED: Famotidine 20 MG/2 ML SDV IVPUSH ONE (19:14)
[2022-01-29] MEDS ORDERED: Pantoprazole 40 MG Vial ONE (21:55)
[2022-01-29] MEDS ORDERED: LORazepam 2 MG/ML SDV IVPUSH ONE (21:55)
[2022-01-29] MEDS ORDERED: Albuterol/Ipratropium 3.0-0.5 MG/3 ML Neb Soln INH PRN (21:57)
[2022-01-29] MEDS ORDERED: Albuterol 6.7 GM Inhaler INH PRN (21:57)
[2022-01-29] MEDS: LORazepam 2 MG/ML SDV IVPUSH PRN (23:11)
[2022-01-30] MEDS: Sodium Chloride 0.9% 1,000 ML IV SCH ×3 (04:07→20:16)
[2022-01-30] MEDS: Arformoterol 15 MCG/2 ML Neb Soln INH SCH ×2 (08:05→20:30)
[2022-01-30] MEDS: Budesonide 0.5 MG/2 ML Neb Susp NEB SCH ×2 (08:06→20:30)
[2022-01-30] MEDS: Enoxaparin 40 MG/0.4 ML Syringe SUBCUT SCH (08:42)
[2022-01-30] MEDS: LORazepam 2 MG/ML SDV IVPUSH PRN (17:42)
[2022-01-30] MEDS: Lisinopril 20 MG Tab PO SCH (18:14)
[2022-01-30] MEDS: Aspirin 81 MG Tab.EC PO SCH (20:14)
[2022-01-30] MEDS ORDERED: Hydrochlorothiazide 25 MG Tab PO ONE (23:23)
[2022-01-30] MEDS ORDERED: Metoprolol Succinate 50 MG Tab.ER PO ONE (23:24)
[2022-01-30] MEDS ORDERED: Lisinopril 10 MG Tab PO ONE (23:24)
[2022-01-30] MEDS ORDERED: Diltiazem 180 MG Cap.CD PO ONE (23:45)
[2022-01-31] MEDS: Sodium Chloride 0.9% 1,000 ML IV SCH ×2 (04:53→12:33)
[2022-01-31] MEDS: Pantoprazole 40 MG Tab.CR PO SCH ×2 (05:42→16:50)
[2022-01-31] MEDS: Aspirin 81 MG Tab.EC PO SCH (08:21)
[2022-01-31] MEDS: Lisinopril 20 MG Tab PO SCH (08:22)
[2022-01-31] MEDS: Enoxaparin 40 MG/0.4 ML Syringe SUBCUT SCH (08:24)
[2022-01-31] MEDS ORDERED: Metoprolol Succinate 50 MG Tab.ER PO SCH (09:00)
[2022-01-31] MEDS ORDERED: Tamsulosin 0.4 MG Cap.ER PO SCH (09:00)
[2022-01-31] MEDS ORDERED: Diltiazem 180 MG Cap.CD PO SCH (09:00)
[2022-01-31] MEDS ORDERED: Hydrochlorothiazide 25 MG Tab PO SCH (09:00)
[2022-01-31] MEDS: Budesonide 0.5 MG/2 ML Neb Susp NEB SCH (09:04)
[2022-01-31] MEDS: Arformoterol 15 MCG/2 ML Neb Soln INH SCH (09:04)
[2022-01-31] MEDS ORDERED: Tiotropium BR/Olodaterol HCL 4 GM Inhalation Spray 2.5mcg/1 dose; 10 doses INH SCH (11:00)
[2022-01-31] MEDS ORDERED: Diatrizoate Meglumine/Diatrizoate Sodium 37% 120 ML Bottle PO ONE (11:31)
== END 2022-01-31 19:18 | disposition home or self-care (01) | DRG 390 ==
LOC: JD.ED 16:42 → JD.MS 20:35
PROVIDERS: ADMIT Pediatrics; ATTEND Pediatrics
DX: K56.600 Partial intestinal obstruction, unspecified as to cause (principal); J44.9 Chronic obstructive pulmonary disease, unspecified; K56.7 Ileus, unspecified; E86.0 Dehydration; K59.09 Other constipation; K56.609 Unspecified intestinal obstruction, unspecified as to partial versus complete obstruction; J44.1 Chronic obstructive pulmonary disease with (acute) exacerbation; H54.7 Unspecified visual loss; I10 Essential (primary) hypertension; I73.9 Peripheral vascular disease, unspecified; K21.9 Gastro-esophageal reflux disease without esophagitis; Z88.0 Allergy status to penicillin; N40.0 Benign prostatic hyperplasia without lower urinary tract symptoms; Z88.5 Allergy status to narcotic agent; M19.90 Unspecified osteoarthritis, unspecified site; E11.9 Type 2 diabetes mellitus without complications; Z79.51 Long term (current) use of inhaled steroids; Z87.01 Personal history of pneumonia (recurrent); Z85.828 Personal history of other malignant neoplasm of skin; Z90.49 Acquired absence of other specified parts of digestive tract; Z85.118 Personal history of other malignant neoplasm of bronchus and lung; Z85.819 Personal history of malignant neoplasm of unspecified site of lip, oral cavity, and pharynx; Z88.1 Allergy status to other antibiotic agents; Z88.8 Allergy status to other drugs, medicaments and biological substances; Z79.84 Long term (current) use of oral hypoglycemic drugs; Z79.82 Long term (current) use of aspirin; Z99.81 Dependence on supplemental oxygen; Z79.52 Long term (current) use of systemic steroids; Z79.899 Other long term (current) drug therapy; Z20.822 Contact with and (suspected) exposure to COVID-19
CPT/HCPCS: 0241U; 36415; 71045; 74176; 74177; 80053; 81001; 82947; 83735; 83880; 84484; 85025; 86140; 87641; 93005; 94640; 94667; 94760; 94761; 93010; 96374; 96375; 99285; 99285-25; A9270-GY; C9113; J1650; J2060; J2405; J3490; J7030; J7620-GY; Q9967

== ENCOUNTER 2022-09-25 16:21 | Inpatient (IN) | payer MEDICARE, BC ==
[2022-09-25] MEDS ORDERED: Sodium Chloride 0.9% 10 ML Syringe FLUSH PRN (16:57)
[2022-09-25] MEDS ORDERED: Albuterol/Ipratropium 3.0-0.5 MG/3 ML Neb Soln NEB ONE (16:58)
[2022-09-25] MEDS ORDERED: methylPREDNISolone Sodium Succinate 125 MG/2 ML SDV IVPUSH ONE (16:59)
[2022-09-25 17:57] LABS: ESTIMATED GFR 73 mL/min (>60)
[2022-09-25 18:13] LABS: CORONAVIRUS COVID-19 NAA NEGATIVE (NEGATIVE)
[2022-09-25] MEDS ORDERED: Albuterol 0.083% 2.5 MG/3 ML Neb Soln NEB ONE (18:22)
[2022-09-25] MEDS ORDERED: cefTRIAXone 1 GM in Sodium Chloride 0.9% 100 ML IV ONE (18:22)
[2022-09-26] MEDS ORDERED: Zolpidem 5 MG Tab PO ONE (00:32)
[2022-09-26] MEDS: Albuterol 0.083% 2.5 MG/3 ML Neb Soln NEB SCH ×2 (01:04→06:07)
[2022-09-26 05:44] LABS: ESTIMATED GFR 73 mL/min (>60)
[2022-09-26] MEDS ORDERED: methylPREDNISolone Sodium Succinate 125 MG/2 ML SDV IVPUSH ONE (06:00)
[2022-09-26] MEDS ORDERED: Albuterol 0.083% 2.5 MG/3 ML Neb Soln NEB PRN (06:36)
[2022-09-26] MEDS ORDERED: Acetaminophen 325 MG Tab PO PRN (07:39)
[2022-09-26] MEDS ORDERED: Ondansetron 4 MG/2 ML SDV IV PRN (07:39)
[2022-09-26] MEDS: Albuterol/Ipratropium 3.0-0.5 MG/3 ML Neb Soln NEB SCH ×3 (08:17→21:29)
[2022-09-26] MEDS: Metoprolol Succinate 50 MG Tab.ER PO SCH (09:00)
[2022-09-26] MEDS: Diltiazem 180 MG Cap.CD PO SCH (09:00)
[2022-09-26] MEDS: Tamsulosin 0.4 MG Cap.ER PO SCH (09:00)
[2022-09-26] MEDS: Lisinopril 20 MG Tab PO SCH (09:01)
[2022-09-26] MEDS: Enoxaparin 40 MG/0.4 ML Syringe SUBCUT SCH (09:01)
[2022-09-26] MEDS: Polyethylene Glycol 3350 Powder 17 GM Packet PO SCH (09:01)
[2022-09-26] MEDS ORDERED: guaiFENesin/Dextromethorphan 100-10 MG/5 ML Soln 5 ML Cup PO ONE (09:45)
[2022-09-26] MEDS: BUDESONIDE INH SCH ×2 (10:05→21:36)
[2022-09-26] MEDS: GLYCOPYR INH SCH ×2 (10:05→21:36)
[2022-09-26] MEDS: FORMOTEROL INH SCH ×2 (10:05→21:36)
[2022-09-26] MEDS: Insulin Lispro 100 Unit/ML 3 ML KwikPen SUBCUT SCH ×3 (11:01→22:19)
[2022-09-26] MEDS: Azithromycin 250 MG Tab PO SCH (11:03)
[2022-09-26] MEDS: guaiFENesin/Dextromethorphan 100-10 MG/5 ML Soln 5 ML Cup PO SCH ×2 (15:07→21:25)
[2022-09-26] MEDS: LORazepam 0.5 MG Tab PO PRN ×2 (15:11→23:30)
[2022-09-26] MEDS: diphenhydrAMINE 25 MG Cap PO SCH (21:23)
[2022-09-26] MEDS: Zolpidem 5 MG Tab PO PRN (21:23)
[2022-09-26] MEDS: Pantoprazole 40 MG Tab.CR PO SCH (21:23)
[2022-09-26] MEDS: Docusate Sodium 100 MG Cap PO PRN (21:24)
[2022-09-26] MEDS: Aspirin 81 MG Tab.EC PO SCH (21:24)
[2022-09-26] MEDS: Naproxen 500 MG Tab PO SCH (21:25)
[2022-09-27] MEDS: Albuterol/Ipratropium 3.0-0.5 MG/3 ML Neb Soln NEB SCH ×4 (04:29→20:27)
[2022-09-27] MEDS: guaiFENesin/Dextromethorphan 100-10 MG/5 ML Soln 5 ML Cup PO SCH ×3 (06:11→21:25)
[2022-09-27] MEDS: predniSONE 20 MG Tab PO SCH (06:12)
[2022-09-27 06:14] LABS: ESTIMATED GFR 65 mL/min (>60)
[2022-09-27] MEDS: Insulin Lispro 100 Unit/ML 3 ML KwikPen SUBCUT SCH ×4 (07:30→21:25)
[2022-09-27] MEDS: BUDESONIDE INH SCH ×2 (09:32→20:32)
[2022-09-27] MEDS: GLYCOPYR INH SCH ×2 (09:32→20:32)
[2022-09-27] MEDS: FORMOTEROL INH SCH ×2 (09:32→20:32)
[2022-09-27] MEDS: Lisinopril 20 MG Tab PO SCH (09:45)
[2022-09-27] MEDS: Tamsulosin 0.4 MG Cap.ER PO SCH (09:45)
[2022-09-27] MEDS: Metoprolol Succinate 50 MG Tab.ER PO SCH (09:46)
[2022-09-27] MEDS: Azithromycin 250 MG Tab PO SCH (09:46)
[2022-09-27] MEDS: Aspirin 81 MG Tab.EC PO SCH ×2 (09:46→21:24)
[2022-09-27] MEDS: Diltiazem 180 MG Cap.CD PO SCH (09:46)
[2022-09-27] MEDS: Polyethylene Glycol 3350 Powder 17 GM Packet PO SCH (09:47)
[2022-09-27] MEDS: Enoxaparin 40 MG/0.4 ML Syringe SUBCUT SCH (09:47)
[2022-09-27] MEDS: diphenhydrAMINE 25 MG Cap PO SCH (21:22)
[2022-09-27] MEDS: LORazepam 0.5 MG Tab PO PRN (21:22)
[2022-09-27] MEDS: Pantoprazole 40 MG Tab.CR PO SCH (21:23)
[2022-09-27] MEDS: Zolpidem 5 MG Tab PO PRN (21:23)
[2022-09-27] MEDS: Naproxen 500 MG Tab PO SCH (21:24)
[2022-09-27] MEDS: Docusate Sodium 100 MG Cap PO PRN (21:30)
[2022-09-28] MEDS: Albuterol/Ipratropium 3.0-0.5 MG/3 ML Neb Soln NEB SCH ×4 (05:31→20:57)
[2022-09-28] MEDS: predniSONE 20 MG Tab PO SCH (07:19)
[2022-09-28] MEDS: guaiFENesin/Dextromethorphan 100-10 MG/5 ML Soln 5 ML Cup PO SCH ×3 (07:20→21:56)
[2022-09-28] MEDS: FORMOTEROL INH SCH ×2 (08:31→20:58)
[2022-09-28] MEDS: GLYCOPYR INH SCH ×2 (08:31→20:58)
[2022-09-28] MEDS: BUDESONIDE INH SCH ×2 (08:31→20:58)
[2022-09-28] MEDS: Polyethylene Glycol 3350 Powder 17 GM Packet PO SCH (10:05)
[2022-09-28] MEDS: Tamsulosin 0.4 MG Cap.ER PO SCH (10:06)
[2022-09-28] MEDS: Diltiazem 180 MG Cap.CD PO SCH (10:06)
[2022-09-28] MEDS: Aspirin 81 MG Tab.EC PO SCH ×2 (10:06→21:56)
[2022-09-28] MEDS: Metoprolol Succinate 50 MG Tab.ER PO SCH (10:07)
[2022-09-28] MEDS: Lisinopril 20 MG Tab PO SCH (10:07)
[2022-09-28] MEDS: Azithromycin 250 MG Tab PO SCH (10:07)
[2022-09-28] MEDS: Enoxaparin 40 MG/0.4 ML Syringe SUBCUT SCH (10:07)
[2022-09-28] MEDS: Insulin Lispro 100 Unit/ML 3 ML KwikPen SUBCUT SCH ×4 (10:08→21:55)
[2022-09-28] MEDS: Pantoprazole 40 MG Tab.CR PO SCH (21:53)
[2022-09-28] MEDS: Naproxen 500 MG Tab PO SCH (21:54)
[2022-09-28] MEDS: diphenhydrAMINE 25 MG Cap PO SCH (21:54)
[2022-09-28] MEDS: Zolpidem 5 MG Tab PO PRN (21:54)
[2022-09-28] MEDS: LORazepam 0.5 MG Tab PO PRN (21:54)
[2022-09-29] MEDS: Albuterol/Ipratropium 3.0-0.5 MG/3 ML Neb Soln NEB SCH ×2 (04:23→08:05)
[2022-09-29] MEDS: predniSONE 20 MG Tab PO SCH (06:59)
[2022-09-29] MEDS: guaiFENesin/Dextromethorphan 100-10 MG/5 ML Soln 5 ML Cup PO SCH (07:01)
[2022-09-29] MEDS: FORMOTEROL INH SCH (08:05)
[2022-09-29] MEDS: BUDESONIDE INH SCH (08:05)
[2022-09-29] MEDS: GLYCOPYR INH SCH (08:05)
[2022-09-29] MEDS: Lisinopril 20 MG Tab PO SCH (08:58)
[2022-09-29] MEDS: Aspirin 81 MG Tab.EC PO SCH (08:59)
[2022-09-29] MEDS: Tamsulosin 0.4 MG Cap.ER PO SCH (09:00)
[2022-09-29] MEDS: Metoprolol Succinate 50 MG Tab.ER PO SCH (09:00)
[2022-09-29] MEDS: Diltiazem 180 MG Cap.CD PO SCH (09:00)
[2022-09-29] MEDS: Insulin Lispro 100 Unit/ML 3 ML KwikPen SUBCUT SCH ×2 (09:01→11:49)
[2022-09-29] MEDS: Enoxaparin 40 MG/0.4 ML Syringe SUBCUT SCH (09:01)
[2022-09-29] MEDS: Polyethylene Glycol 3350 Powder 17 GM Packet PO SCH (09:09)
== END 2022-09-29 12:27 | disposition home or self-care (01) | DRG 192 ==
LOC: JD.ED 16:21 → JD.ICU 20:27 → JD.MS 09-26 20:45
PROVIDERS: ADMIT Pediatrics; ATTEND Internal Medicine
DX: J44.1 Chronic obstructive pulmonary disease with (acute) exacerbation (principal); R06.89 Other abnormalities of breathing; N40.0 Benign prostatic hyperplasia without lower urinary tract symptoms; K21.9 Gastro-esophageal reflux disease without esophagitis; Z66 Do not resuscitate; I71.40 Abdominal aortic aneurysm, without rupture, unspecified; E11.51 Type 2 diabetes mellitus with diabetic peripheral angiopathy without gangrene; I10 Essential (primary) hypertension; Z79.84 Long term (current) use of oral hypoglycemic drugs; F41.9 Anxiety disorder, unspecified; H54.7 Unspecified visual loss; Z20.822 Contact with and (suspected) exposure to COVID-19; M19.90 Unspecified osteoarthritis, unspecified site; Z88.1 Allergy status to other antibiotic agents; Z88.8 Allergy status to other drugs, medicaments and biological substances; Z79.82 Long term (current) use of aspirin; Z79.899 Other long term (current) drug therapy; Z90.49 Acquired absence of other specified parts of digestive tract
CPT/HCPCS: 0241U; 36415; 71045; 80048; 80053; 82947; 83605; 83735; 85025; 86140; 87040; 94640; 94667; 94668; 94761; 96365; 96375; 97110; 97116; 97162; 97166; 97530; 99285; A9270-GY; J0696; J1650; J1815; J2930; J3490; J7512; J7620-GY

== ENCOUNTER 2023-06-23 12:48 | Emergency (ER) | payer MEDICARE, BC ==
[2023-06-23] MEDS ORDERED: predniSONE 20 MG Tab PO ONE (13:33)
[2023-06-23 13:45] LABS: BASOPHILS PERCENT AUTO 0.5 % (0.0-1.0); EOSINOPHILS ABSOLUTE AUTO 0.3 K/mm3 (0.0-0.4); EOSINOPHILS PERCENT AUTO 3.2 % (0.0-6.0); HEMATOCRIT 40.8 % (42.0-52.0); HEMOGLOBIN 13.9 gm/dl (14.0-18.0); IMMATURE GRAN ABSOLUTE AUTO 0.06 K/mm3 (0.00-0.05); IMMATURE GRAN PERCENT AUTO 0.8 % (0.0-0.4); LYMPHOCYTES ABSOLUTE AUTO 1.2 K/mm3 (1.0-4.8); LYMPHOCYTES PERCENT AUTO 15.5 % (24.0-44.0); MEAN CORPUSCULAR HEMOGLOBIN 31.3 pg (28.0-32.0); MEAN CORPUSCULAR HGB CONC 34.1 g/dl (32.0-36.0); MEAN CORPUSCULAR VOLUME 91.9 fl (83.0-99.0); MEAN PLATELET VOLUME 10.1 fl (9.4-12.4); MONOCYTES ABSOLUTE AUTO 0.9 K/mm3 (0.0-0.8); MONOCYTES PERCENT AUTO 11.1 % (0.0-8.0); NEUTROPHILS ABSOLUTE AUTO 5.4 K/mm3 (1.8-7.7); NEUTROPHILS PERCENT AUTO 68.9 % (41.0-71.0); PLATELET COUNT,PLT 216 K/mm3 (150-400); RED BLOOD CELL COUNT 4.44 M/mm3 (4.52-5.90); WHITE BLOOD CELL COUNT,WBC 7.83 K/mm3 (3.9-11.3)
[2023-06-23] MEDS: Albuterol/Ipratropium 3.0-0.5 MG/3 ML Neb Soln NEB SCH ×2 (13:46→14:27)
[2023-06-23 14:04] LABS: A/G RATIO 1.2 (1-2); ALANINE AMINOTRANSFERASE,ALT 24 U/L (16-63); ALBUMIN 3.9 g/dl (3.4-5.0); ALKALINE PHOSPHATASE 65 U/L (46-116); ANION GAP 10.1 (5-15); ASPARTATE AMNIOTRANSFERASE,AST 14 U/L (15-37); BLOOD UREA NITROGEN,BUN 18 mg/dL (7-18); C-REACTIVE PROTEIN <0.2 mg/dL (<1.0); CALCIUM 9.1 mg/dL (8.5-10.1); CARBON DIOXIDE,CO2 33 mEq/L (21-32); CHLORIDE,CL 101 mEq/L (98-107); CREATININE 0.9 mg/dL (0.7-1.3); EST CRCL DRUG DOSING (CG) 51.98 mL/min; ESTIMATED GFR 82 mL/min (>60); GLUCOSE RANDOM 129 mg/dL (70-99); POTASSIUM,K 4.1 mEq/L (3.5-5.1); PROTEIN TOTAL,TP 7.2 g/dl (6.4-8.2); SODIUM,NA 140 mEq/L (136-145)
== END 2023-06-23 16:10 | disposition home or self-care (01) ==
LOC: JD.ED 12:48
DX: J44.1 Chronic obstructive pulmonary disease with (acute) exacerbation (principal); E11.9 Type 2 diabetes mellitus without complications; M19.90 Unspecified osteoarthritis, unspecified site; I10 Essential (primary) hypertension; K21.9 Gastro-esophageal reflux disease without esophagitis; Z79.82 Long term (current) use of aspirin; Z79.899 Other long term (current) drug therapy; Z88.5 Allergy status to narcotic agent; Z88.1 Allergy status to other antibiotic agents; Z88.8 Allergy status to other drugs, medicaments and biological substances
CPT/HCPCS: 36415; 71045; 80053; 83880; 85025; 86140; 87804; 87807; 93005; 94640; 99285; J7512; U0002; J7620-GY

== ENCOUNTER 2024-07-04 18:02 | Emergency (ER) | payer MEDICARE, BC ==
[2024-07-04] MEDS: Sodium Chloride 0.9% 10 ML Syringe FLUSH PRN (18:33)
[2024-07-04] MEDS: Albuterol/Ipratropium 3.0-0.5 MG/3 ML Neb Soln NEB ONE (18:42)
[2024-07-04 18:44] LABS: BASOPHILS PERCENT AUTO 0.3 % (0.0-1.0); EOSINOPHILS ABSOLUTE AUTO 0.2 K/mm3 (0.0-0.4); EOSINOPHILS PERCENT AUTO 1.4 % (0.0-6.0); HEMATOCRIT 37.1 % (42.0-52.0); IMMATURE GRAN ABSOLUTE AUTO 0.08 K/mm3 (0.00-0.05); IMMATURE GRAN PERCENT AUTO 0.7 % (0.0-0.4); LYMPHOCYTES ABSOLUTE AUTO 1.3 K/mm3 (1.0-4.8); LYMPHOCYTES PERCENT AUTO 10.8 % (24.0-44.0); MEAN CORPUSCULAR HEMOGLOBIN 29.9 pg (28.0-32.0); MEAN CORPUSCULAR HGB CONC 32.3 g/dl (32.0-36.0); MEAN CORPUSCULAR VOLUME 92.3 fl (83.0-99.0); MEAN PLATELET VOLUME 10.5 fl (9.4-12.4); MONOCYTES ABSOLUTE AUTO 1.2 K/mm3 (0.0-0.8); MONOCYTES PERCENT AUTO 9.8 % (0.0-8.0); NEUTROPHILS ABSOLUTE AUTO 9.3 K/mm3 (1.8-7.7); PLATELET COUNT,PLT 189 K/mm3 (150-400); RED BLOOD CELL COUNT 4.02 M/mm3 (4.52-5.90); WHITE BLOOD CELL COUNT,WBC 12.08 K/mm3 (3.9-11.3)
[2024-07-04] MEDS: methylPREDNISolone Sodium Succinate 125 MG/2 ML SDV IVPUSH ONE (18:48)
[2024-07-04 19:15] LABS: LACTIC ACID 0.9 mmol/L (0.4-2.0)
[2024-07-04 19:21] LABS: A/G RATIO 1.3 (1-2); ALBUMIN 3.7 g/dl (3.4-5.0); ANION GAP 8.5 (5-15); BILIRUBIN TOTAL 0.7 mg/dL (0.2-1.0); C-REACTIVE PROTEIN 0.05 mg/dL (<0.30); CALCIUM 9.2 mg/dL (8.5-10.1); CREATININE 0.8 mg/dL (0.7-1.3); EST CRCL DRUG DOSING (CG) 64.64 mL/min; POTASSIUM,K 3.5 mEq/L (3.5-5.1); PROTEIN TOTAL,TP 6.5 g/dl (6.4-8.2)
[2024-07-04] MEDS: Cefdinir 300 MG Cap PO ONE (20:46)
== END 2024-07-04 20:45 | disposition home or self-care (01) ==
LOC: JD.ED 18:02
DX: J44.1 Chronic obstructive pulmonary disease with (acute) exacerbation (principal); I10 Essential (primary) hypertension; K21.9 Gastro-esophageal reflux disease without esophagitis; E11.9 Type 2 diabetes mellitus without complications; Z88.5 Allergy status to narcotic agent; Z88.8 Allergy status to other drugs, medicaments and biological substances; Z79.899 Other long term (current) drug therapy; Z90.49 Acquired absence of other specified parts of digestive tract
CPT/HCPCS: 36415; 71045; 80053; 83605; 83880; 84484; 85025; 86140; 93005; 94640; 96374; 99285; A9270; J2919; J3490; U0002; J7620-GY